=== PATIENT | female | born 1990 | race American Indian/Alaskan Native ===

== ENCOUNTER → 2020-04-05 13:49 | Outpatient (BNVA) | payer MEDICAID, SELFPAY | PROVIDERS: PCP Nurse Practitioner Family; Referring Provider Nurse Practitioner Family; Visit Provider Internal Medicine | DX: E04.1 Nontoxic single thyroid nodule (principal); E55.9 Vitamin D deficiency, unspecified; Z79.899 Other long term (current) drug therapy | CPT/HCPCS: 99203 ==

== ENCOUNTER 2020-06-15 13:51 | Outpatient (REF) | payer MEDICAID, SELFPAY | END 2020-06-15 13:52 | disposition home or self-care (01) | LOC: HO.LAB 13:51 | PROVIDERS: PCP Nurse Practitioner Family; Visit Provider Internal Medicine | DX: Z20.828 Contact with and (suspected) exposure to other viral communicable diseases (principal) | CPT/HCPCS: C9803; U0003 ==

== ENCOUNTER → 2020-07-02 12:33 | Outpatient (BNVA) | payer MEDICAID, SELFPAY | PROVIDERS: PCP Nurse Practitioner Family; Referring Provider Nurse Practitioner Family; Visit Provider Internal Medicine | DX: Z76.89 Persons encountering health services in other specified circumstances (principal) ==

== ENCOUNTER → 2020-08-15 11:29 | Outpatient (BNVA) | payer MEDICAID, SELFPAY | PROVIDERS: PCP Nurse Practitioner Family; Visit Provider Internal Medicine ==

== ENCOUNTER 2020-09-10 13:27 | Outpatient (REF) | payer MEDICAID, SELFPAY ==
[2020-09-10 16:58] LABS: CT PCR NOT DETECTED (Not Detect.); NG PCR NOT DETECTED (Not Detect.)
== END 2020-09-10 13:28 | disposition home or self-care (01) ==
LOC: HO.LAB 13:27
PROVIDERS: Visit Provider Advanced Practice Midwife
DX: Z01.411 Encounter for gynecological examination (general) (routine) with abnormal findings (principal); N92.1 Excessive and frequent menstruation with irregular cycle; Z20.2 Contact with and (suspected) exposure to infections with a predominantly sexual mode of transmission; Z97.5 Presence of (intrauterine) contraceptive device
CPT/HCPCS: 87491; 87591; 88142

== ENCOUNTER → 2020-10-22 10:11 | Outpatient (BNVA) | payer MEDICAID, SELFPAY | PROVIDERS: Visit Provider Internal Medicine ==

== ENCOUNTER 2020-12-03 14:41 | Outpatient (REF) | payer MEDICAID, SELFPAY ==
[2020-12-03 15:32] LABS: Calcium 9.4 mg/dL (8.4-10.2)
[2020-12-03 15:59] LABS: Free T4 (Free Thyroxine) 1.14 ng/dL (0.71-1.85); Vitamin D 25-OH Total 40.6 ng/mL (>30)
[2020-12-05 06:21] LABS: Thyroglobulin 0.2 ng/mL; Thyroglobulin Antibodies 3 IU/mL (< or = 1)
[2020-12-05 10:26] LABS: Calcium (PTHI) 9.2 mg/dL (8.6-10.2); PTHI 30 pg/mL (14-64)
== END 2020-12-03 14:42 | disposition home or self-care (01) ==
LOC: HO.LAB 14:41
PROVIDERS: Visit Provider Internal Medicine
DX: E55.9 Vitamin D deficiency, unspecified (principal); C73 Malignant neoplasm of thyroid gland
CPT/HCPCS: 36415; 82306; 82310; 83970; 84432; 84439; 84443; 86800

== ENCOUNTER → 2021-02-18 12:21 | Outpatient (BNVA) | payer MEDICAID, SELFPAY | PROVIDERS: Visit Provider Internal Medicine ==

== ENCOUNTER 2021-02-19 15:12 | Outpatient (REF) | payer MEDICAID, SELFPAY ==
[2021-02-19 16:22] LABS: Thyroid Stimulating Hormone 0.61 uIU/mL (0.32-4.0)
[2021-02-21 02:17] LABS: Thyroglobulin Antibodies 2 IU/mL (< or = 1)
[2021-02-22 07:12] LABS: Thyroglobulin 0.2 ng/mL
== END 2021-02-19 15:13 | disposition home or self-care (01) ==
LOC: HO.LAB 15:12
PROVIDERS: Visit Provider Internal Medicine
DX: Z85.850 Personal history of malignant neoplasm of thyroid (principal)
CPT/HCPCS: 36415; 84432; 84439; 84443; 86800

== ENCOUNTER → 2021-04-29 10:19 | Outpatient (BNVA) | payer MEDICAID, SELFPAY | PROVIDERS: Visit Provider Internal Medicine | DX: C73 Malignant neoplasm of thyroid gland (principal) | CPT/HCPCS: 96372 ==

== ENCOUNTER → 2021-04-30 08:56 | Outpatient (BNVA) | payer MEDICAID, SELFPAY | PROVIDERS: Visit Provider Nurse Practitioner Gerontology | DX: C73 Malignant neoplasm of thyroid gland (principal) | CPT/HCPCS: 96372 ==

== ENCOUNTER 2021-04-30 09:29 | Outpatient (REF) | payer MEDICAID, SELFPAY ==
[2021-04-30 10:48] LABS: HCG Quantitative < 2 mIU/mL
== END 2021-04-30 09:30 | disposition home or self-care (01) ==
LOC: HO.10HDL 09:29
PROVIDERS: Visit Provider Internal Medicine
DX: Z85.850 Personal history of malignant neoplasm of thyroid (principal)
CPT/HCPCS: 36415; 84702

== ENCOUNTER 2021-05-01 09:21 | Outpatient (REF) | payer MEDICAID, SELFPAY ==
[2021-05-02 12:26] LABS: Thyroglobulin Antibodies <1 IU/mL (< or = 1)
== END 2021-05-01 09:22 | disposition home or self-care (01) ==
LOC: HO.10HDL 09:21
PROVIDERS: Visit Provider Internal Medicine
DX: Z85.850 Personal history of malignant neoplasm of thyroid (principal)
CPT/HCPCS: 36415; 84443; 86800

== ENCOUNTER 2021-08-22 15:26 | Outpatient (REF) | payer MEDICAID, SELFPAY ==
[2021-08-22 17:18] LABS: Free T4 (Free Thyroxine) 1.01 ng/dL (0.71-1.85); Thyroid Stimulating Hormone 0.11 uIU/mL (0.32-4.0)
[2021-08-23 20:17] LABS: Thyroglobulin <0.1 ng/mL; Thyroglobulin Antibodies <1 IU/mL (< or = 1)
== END 2021-08-22 15:27 | disposition home or self-care (01) ==
LOC: HO.LAB 15:26
PROVIDERS: Absent Provider Nurse Practitioner Family; PCP Nurse Practitioner Family; Visit Provider Internal Medicine
DX: Z85.850 Personal history of malignant neoplasm of thyroid (principal)
CPT/HCPCS: 36415; 84432; 84439; 84443; 86800

== ENCOUNTER → 2021-08-26 14:02 | Outpatient (BNVA) | payer MEDICAID, SELFPAY | PROVIDERS: Visit Provider Internal Medicine | DX: C73 Malignant neoplasm of thyroid gland (principal); E55.9 Vitamin D deficiency, unspecified; E03.9 Hypothyroidism, unspecified; Z79.899 Other long term (current) drug therapy | CPT/HCPCS: 99212 ==

== ENCOUNTER 2021-08-29 16:01 | Outpatient (REF) | payer MEDICAID, SELFPAY ==
--- NOTE | ~2021-08-29 | XR_ITS ---
EXAMINATION: XR CERVICAL SPINE CLINICAL INFORMATION: Cervalgia COMPARISON: None TECHNIQUE: 6 views of the cervical spine, inclusive of flexion and extension views, were obtained. FINDINGS: The vertebral alignment is normal. No intrinsic bony abnormality. The disc heights are well maintained. The endplates and posterior elements are normal. No fracture or subluxation. There is an osteophyte protruding into the left foramen at the level of C3. The surrounding prevertebral soft tissues are unremarkable. XR/XR cervical spine min 6V IMPRESSION: There is an osteophyte protruding encroaching into the left foramen at the level of C3, if patient has neurological symptoms may consider correlation with MRI to assess for possible nerve impingement. All cervical vertebrae maintained proper height and alignment. Intervertebral disc spaces are preserved.
== END 2021-08-29 16:02 | disposition home or self-care (01) ==
LOC: HO.XRAY 16:01
PROVIDERS: PCP Nurse Practitioner Family; Visit Provider Nurse Practitioner Family
DX: M54.2 Cervicalgia (principal)
CPT/HCPCS: 72052

== ENCOUNTER 2021-09-12 14:15 | Outpatient (REF) | payer MEDICAID, SELFPAY ==
[2021-09-13 09:44] LABS: BV Int Neg Control Negative (Negative); BV Int Pos Control Positive (Positive)
== END 2021-09-12 14:16 | disposition home or self-care (01) ==
LOC: HO.LAB 14:15
PROVIDERS: Visit Provider Advanced Practice Midwife
DX: N89.8 Other specified noninflammatory disorders of vagina (principal)
CPT/HCPCS: 87480; 87510; 87660

== ENCOUNTER 2021-09-12 18:06 | Outpatient (REF) | payer MEDICAID, SELFPAY ==
--- NOTE | ~2021-09-12 | MR_ITS ---
EXAMINATION: MR CERVICAL SPINE WITHOUT CONTRAST CLINICAL INFORMATION: Neck pain and bilateral arm radiculopathy. COMPARISON: None TECHNIQUE: MRI of the cervical spine was obtained using routine sequences without contrast. FINDINGS: VERTEBRAL BODIES AND PARASPINAL SOFT TISSUES: The marrow signal is homogeneous. There are no compression fractures or subluxations. Mild multilevel reduced intradiscal signal and disc space narrowing evident. The paraspinal soft tissues appear normal. The vertebral artery flow-voids are maintained. The imaged lung apices are grossly clear. There is a mild rightward curvature of the cervical spine as well. CERVICOMEDULLARY JUNCTION AND VISUALIZED POSTERIOR FOSSA: The craniovertebral junction and imaged portions of the brain parenchyma appear normal. No cord signal abnormality or syrinx is seen. SPINAL LEVELS: C2-C3: Tiny central disc protrusion. No central canal stenosis or foraminal narrowing. C3-C4: Mild loss of disc height and mild disc bulge with very mild uncovertebral joint spurring. No central canal stenosis or foraminal encroachment. C4-C5: Small central disc protrusion. No central canal stenosis or foraminal narrowing. C5-C6: Shallow right paracentral disc protrusion with mild ventral thecal sac deformity. No central canal stenosis or foraminal narrowing. C6-C7: Minimal annular bulge. Patent central canal and foramina. C7-T1: No disc pathology. MR/MR cervical spine wo con IMPRESSION: Mild cervical spondylosis with small disc protrusions at the C2-C3, C4-C5, and C5-C6 levels. Mild disc bulge and endplate spurring without foraminal encroachment at the C3-C4 level. No cord signal abnormality.
== END 2021-09-12 18:07 | disposition home or self-care (01) ==
LOC: HO.MRI 18:06
PROVIDERS: PCP Nurse Practitioner Family; Visit Provider Nurse Practitioner Family
DX: M25.78 Osteophyte, vertebrae (principal); M54.2 Cervicalgia; N89.8 Other specified noninflammatory disorders of vagina
CPT/HCPCS: 72141

== ENCOUNTER 2021-11-11 13:41 | Outpatient (REF) | payer MEDICAID, SELFPAY ==
[2021-11-12 06:41] LABS: CT PCR NOT DETECTED (Not Detect.); NG PCR NOT DETECTED (Not Detect.)
[2021-11-12 13:18] LABS: BV Int Neg Control Negative (Negative); BV Int Pos Control Positive (Positive)
== END 2021-11-11 13:42 | disposition home or self-care (01) ==
LOC: HO.LAB 13:41
PROVIDERS: Visit Provider Advanced Practice Midwife
DX: Z30.431 Encounter for routine checking of intrauterine contraceptive device (principal); N89.8 Other specified noninflammatory disorders of vagina; N93.0 Postcoital and contact bleeding; T83.32XA Displacement of intrauterine contraceptive device, initial encounter; Z20.2 Contact with and (suspected) exposure to infections with a predominantly sexual mode of transmission
CPT/HCPCS: 81003; 81025; 87480; 87491; 87510; 87591; 87660

== ENCOUNTER 2021-11-26 10:25 | Outpatient (REF) | payer MEDICAID, SELFPAY ==
--- NOTE | ~2021-11-26 | US_ITS ---
EXAMINATION: US PELVIS CLINICAL INFORMATION: Post coital bleeding. LMP 11/23/2021. History of C-sections x2. COMPARISON: Pelvic ultrasound dated from 11/24/2018. TECHNIQUE: Ultrasound of the pelvis is performed using both transabdominal and transvaginal transducers along with Doppler. Transvaginal imaging is performed due to inadequate visualization transabdominally. FINDINGS: The uterus is anteverted and measures 10.6 x 4.9 x 6.4 cm. No fibroids are identified. The endometrium measures 0.6 cm in thickness with an IUD in satisfactory positioning. The ovaries are normal in morphology with preserved flow at the moment of this examination. The right ovary measures 3.6 x 2.2 x 2.2 cm (9 mL), and the left ovary measures 2.8 x 2.0 x 2.9 cm (8 mL). There is no free fluid. US/US pelvic and transvaginal IMPRESSION: IUD in satisfactory positioning. No significant abnormalities.
[2021-11-26 14:14] LABS: Free T4 (Free Thyroxine) 1.16 ng/dL (0.71-1.85); Thyroid Stimulating Hormone 0.29 uIU/mL (0.32-4.0)
[2021-11-27 09:01] LABS: Thyroglobulin <0.1 ng/mL; Thyroglobulin Antibodies <1 IU/mL (< or = 1)
== END 2021-11-26 10:26 | disposition home or self-care (01) ==
LOC: HO.HMGCX 10:25
PROVIDERS: Absent Provider Internal Medicine; PCP Nurse Practitioner Family; Visit Provider Advanced Practice Midwife
DX: N93.0 Postcoital and contact bleeding (principal); T83.32XA Displacement of intrauterine contraceptive device, initial encounter; E55.9 Vitamin D deficiency, unspecified; Z85.850 Personal history of malignant neoplasm of thyroid; Z30.431 Encounter for routine checking of intrauterine contraceptive device
CPT/HCPCS: 36415; 76830; 76856; 82306; 84432; 84439; 84443; 86800

== ENCOUNTER → 2021-12-02 13:05 | Outpatient (BNVA) | payer MEDICAID, SELFPAY | PROVIDERS: PCP Nurse Practitioner Family; Visit Provider Internal Medicine | DX: Z13.89 Encounter for screening for other disorder (principal) ==

== ENCOUNTER 2021-12-04 15:13 | Outpatient (REF) | payer MEDICAID, SELFPAY ==
--- NOTE | ~2021-12-04 | US_ITS ---
EXAMINATION: US SOFT TISSUE NECK CLINICAL INFORMATION: Personal history of malignant neoplasm of thyroid. COMPARISON: Ultrasound soft tissue head/neck thyroid dated 01/23/2020 and 02/21/2019. TECHNIQUE: Ultrasound of the neck soft tissues is performed with high- frequency donovan-scale imaging and color Doppler. FINDINGS: THYROID BED: Prior thyroidectomy. No residual thyroid tissue demonstrated in the thyroid bed. No cystic or solid nodules demonstrated in the thyroid bed. RIGHT NECK SOFT TISSUES: Scattered architecturally normal nodes are present. The nodes show normal fatty hilus, normal cortical thickness, and no cystic change or calcification. No abnormal color flow. The largest nodes are as follows: Level Ib: 0.56 x 0.31 x 0.51 cm. Normal jorge luis architecture. Level Ib: 0.75 x 0.22 x 0.88 cm. Normal jorge luis architecture. Level Ib: 0.93 x 0.64 x 1.1 cm. Normal jorge luis architecture. LEFT NECK SOFT TISSUES: Scattered architecturally normal nodes are present. The nodes show normal fatty hilus, normal cortical thickness, and no cystic change or calcification. No abnormal color flow. The largest nodes are as follows: Level 2: 1.3 x 0.44 x 0.83 cm. Normal jorge luis architecture. Level 2: 0.92 x 0.27 x 0.74 cm. Normal jorge luis architecture. Level 2: 0.80 x 0.31 x 0.52 cm. Normal jorge luis architecture. Level 2: 0.60 x 0.38 x 0.76 cm. Normal jorge luis architecture. Level 2: 1.9 x 0.35 x 1.1 cm. Normal jorge luis architecture. US/US soft tiss head and/or neck IMPRESSION: 1. Benign bilateral neck lymph nodes most of them measuring less than 1 cm exophytic with the largest left level 2 lymph node measuring 1.9 cm. It has benign ultrasound characteristics. 2. If clinically indicated, further evaluation of the neck soft tissues and nodes may be performed with CT soft tissue neck with intravenous contrast.
== END 2021-12-04 15:14 | disposition home or self-care (01) ==
LOC: HO.HMGCX 15:13
PROVIDERS: PCP Nurse Practitioner Family; Visit Provider Internal Medicine
DX: Z85.850 Personal history of malignant neoplasm of thyroid (principal)
CPT/HCPCS: 76536

== ENCOUNTER 2021-12-19 08:39 | Outpatient (REF) | payer MEDICAID, SELFPAY ==
[2021-12-19 09:41] LABS: Hematocrit 34.3 % (37.0-47.0); Hemoglobin 11.8 g/dl (12.0-16.0); Mean Corpuscular HGB Conc 34.4 g/dl (31.0-35.0); Mean Corpuscular Volume 78.5 fL (80.0-98.0); Mean Platelet Volume 11.1 fL (9.4-12.3); Platelet Count 224 X10*3/uL (160-400); Red Blood Count 4.37 X10*6/uL (4.20-5.50); Red Cell Distribution Width 15.3 % (11.0-16.0); White Blood Count 7.1 X10*3/uL (4.8-10.8)
== END 2021-12-19 08:40 | disposition home or self-care (01) ==
LOC: HO.LAB 08:39
PROVIDERS: PCP Nurse Practitioner Family; Visit Provider Advanced Practice Midwife
DX: N92.0 Excessive and frequent menstruation with regular cycle (principal); Z71.2 Person consulting for explanation of examination or test findings
CPT/HCPCS: 36415; 85027

== ENCOUNTER 2022-04-21 09:47 | Outpatient (REF) | payer MEDICAID, SELFPAY ==
[2022-04-21 14:11] LABS: CT PCR NOT DETECTED (Not Detect.); NG PCR NOT DETECTED (Not Detect.)
[2022-04-22 12:23] LABS: BV Int Neg Control Negative (Negative); BV Int Pos Control Positive (Positive)
== END 2022-04-21 09:48 | disposition home or self-care (01) ==
LOC: HO.LNP 09:47
PROVIDERS: PCP Nurse Practitioner Family; Visit Provider Advanced Practice Midwife
DX: Z30.432 Encounter for removal of intrauterine contraceptive device (principal); N94.10 Unspecified dyspareunia
CPT/HCPCS: 58301; 87480; 87491; 87510; 87591; 87660

== ENCOUNTER → 2022-08-11 13:10 | Outpatient (BNVA) | payer MEDICAID, SELFPAY | PROVIDERS: PCP Registered Nurse; Visit Provider Internal Medicine | DX: E03.9 Hypothyroidism, unspecified (principal); E55.9 Vitamin D deficiency, unspecified; L70.9 Acne, unspecified; Z85.850 Personal history of malignant neoplasm of thyroid | CPT/HCPCS: 99212 ==

== ENCOUNTER 2022-08-12 07:28 | Outpatient (REF) | payer MEDICAID, SELFPAY ==
[2022-08-12 08:18] LABS: Alanine Aminotransferase 11 U/L (0-31); Albumin Level 4.1 g/dL (3.5-5.0); Alkaline Phosphatase 57 U/L (39-117); Anion Gap 12 (12-20); Aspartate Amino Transferase 13 U/L (5-31); Bilirubin Total 0.7 mg/dL (0.0-1.0); Blood Urea Nitrogen 11 mg/dL (9-16); Calcium 8.9 mg/dL (8.4-10.2); Carbon Dioxide 23 mmol/L (22-29); Chloride 109 mmol/L (96-108); Estimated Glomerular Filt Rate > 60; Glucose Random 110 mg/dL (60-115); Potassium 4.3 mmol/L (3.3-5.1); Sodium 140 mmol/L (135-145); Total Protein 6.8 g/dL (6.5-8.0)
[2022-08-12 08:35] LABS: Free T4 (Free Thyroxine) 1.19 ng/dL (0.71-1.85); Thyroid Stimulating Hormone 0.06 uIU/mL (0.32-4.0)
[2022-08-14 08:38] LABS: DHEA Sulfate 175 mcg/dL (14-349); Follicle Stimulating Hormone 7.6 mIU/mL; Lutenizing Hormone 3.9 mIU/mL; Sex Hormone Binding Globulin 35 nmol/L (17-124)
[2022-08-16 05:44] LABS: Thyroglobulin Antibody <1 IU/mL (<=1); Thyroglobulin Level <0.1 ng/mL
[2022-08-16 15:54] LABS: Adrenocorticotropic Hormone 21 pg/mL (6-50)
[2022-08-16 23:19] LABS: Estradiol Ultra Sensitive 28 pg/mL
[2022-08-18 14:34] LABS: Androstenedione 151 ng/dL
[2022-08-27 16:53] LABS: Testosterone, Total 32 ng/dL (2-45)
== END 2022-08-12 07:29 | disposition home or self-care (01) ==
LOC: HO.LAB 07:28
PROVIDERS: Visit Provider Internal Medicine
DX: L70.9 Acne, unspecified (principal); Z85.850 Personal history of malignant neoplasm of thyroid
CPT/HCPCS: 36415; 80053; 82024; 82157; 82533; 82627; 82670; 83001; 83002; 83498; 84270; 84402; 84403; 84432; 84439; 84443; 86800

== ENCOUNTER 2022-10-16 07:53 | Outpatient (REF) | payer MEDICAID, SELFPAY ==
[2022-10-16 11:40] LABS: Free T4 (Free Thyroxine) < 0.42 ng/dL (0.71-1.85); Thyroid Stimulating Hormone 33.95 uIU/mL (0.32-4.0)
[2022-10-22 05:13] LABS: Thyroglobulin Antibody <1 IU/mL (<=1); Thyroglobulin Level 0.9 ng/mL
== END 2022-10-16 07:54 | disposition home or self-care (01) ==
LOC: HO.10HDL 07:53
PROVIDERS: Visit Provider Internal Medicine
DX: Z85.850 Personal history of malignant neoplasm of thyroid (principal)
CPT/HCPCS: 36415; 84432; 84439; 84443; 86800

== ENCOUNTER 2022-10-21 10:17 | Outpatient (REF) | payer MEDICAID, SELFPAY ==
[2022-10-21 12:50] LABS: Free T4 (Free Thyroxine) < 0.42 ng/dL (0.71-1.85); HCG Quantitative < 2 mIU/mL; Thyroid Stimulating Hormone 53.76 uIU/mL (0.32-4.0)
== END 2022-10-21 10:18 | disposition home or self-care (01) ==
LOC: HO.10HDL 10:17
PROVIDERS: Visit Provider Internal Medicine Endocrinology, Diabetes & Metabolism
DX: C73 Malignant neoplasm of thyroid gland (principal)
CPT/HCPCS: 36415; 84439; 84443; 84702

== ENCOUNTER 2022-10-31 14:16 | Outpatient (REF) | payer MEDICAID, SELFPAY ==
--- NOTE | ~2022-10-31 | US_ITS ---
EXAMINATION: US SOFT TISSUE NECK CLINICAL INFORMATION: Malignant neoplasm of thyroid gland COMPARISON: Previous exams most recent November 2021 TECHNIQUE: Ultrasound of the neck soft tissues is performed with high- frequency donovan-scale imaging and color Doppler. FINDINGS: THYROID BED: Prior thyroidectomy. No residual thyroid tissue demonstrated in the thyroid bed. No cystic or solid nodules demonstrated in the thyroid bed. There is a new midline level 1A lymph node that measures 6 x 3 x 7 mm in sagittal AP and transverse dimension. This is normal in size and demonstrate normal ultrasound morphology and flow. There are 7 lymph nodes identified in the right neck. There is a level 1A lymph node that is normal appearing and stable. There is a newly appreciated 1B lymph node that measures 7 x 5 x 6 mm and is normal in size. This demonstrates abnormal morphology with absent fatty hilum and round shape. There is a level 2 lymph node that has normal ultrasound morphology and is normal in size but slightly increased in size compared to prior prior exam. There is a new level 3 lymph node that is upper normal in size measuring 1.6 x 0.3 x 0.9 cm and has normal ultrasound morphology. There is a newly appreciated right level 3 lymph node that is upper normal in size measuring 1.4 x 0.3 x 0.8 cm. This has abnormal morphology with absent fatty hilum. There is a newly appreciated right level 4 lymph node that is upper normal in size measuring 1.1 x 0.2 x 0.9 cm and has normal ultrasound morphology. There is a newly appreciated slightly enlarged right level 5A lymph node that measures 1.4 x 0.3 x 1.2 cm and has normal ultrasound morphology. There are 2 newly appreciated left cervical lymph nodes. There is a level 1 lymph node that is upper normal in size measuring 0.8 x 0.7 x 1.5 cm and has normal ultrasound morphology. There is an upper normal level 3 lymph node that measures 1.6 x 0.2 x 0.7 cm and has abnormal ultrasound morphology with absent fatty hilum. There are 2 adjacent level 5A normal-appearing lymph nodes that was measured as one lymph node on prior exam. These are normal in size and have normal ultrasound morphology. US/US soft tiss head and/or neck IMPRESSION: Post thyroidectomy. No residual thyroid tissue or nodule. Bilateral newly appreciated lymph nodes, some slightly enlarged with abnormal pathology/absent fatty hilum.
== END 2022-10-31 14:17 | disposition home or self-care (01) ==
LOC: HO.HMGCX 14:16
PROVIDERS: PCP Registered Nurse; Visit Provider Internal Medicine
DX: C73 Malignant neoplasm of thyroid gland (principal)
CPT/HCPCS: 76536

== ENCOUNTER 2022-11-06 14:13 | Outpatient (REF) | payer MEDICAID, SELFPAY ==
[2022-11-07 09:32] LABS: CT PCR NOT DETECTED (Not Detect.); NG PCR NOT DETECTED (Not Detect.)
[2022-11-11 09:37] LABS: HPV mRNA E6/E7 rflx Not Detected (Not Detected)
== END 2022-11-06 14:14 | disposition home or self-care (01) ==
LOC: HO.LNP 14:13
PROVIDERS: PCP Registered Nurse; Visit Provider Advanced Practice Midwife
DX: Z01.419 Encounter for gynecological examination (general) (routine) without abnormal findings (principal); Z11.51 Encounter for screening for human papillomavirus (HPV); Z20.2 Contact with and (suspected) exposure to infections with a predominantly sexual mode of transmission
CPT/HCPCS: 0353U; 87624; 88142

== ENCOUNTER 2022-11-12 14:26 | Outpatient (REF) | payer MEDICAID, SELFPAY ==
[2022-11-12 17:14] LABS: Free T4 (Free Thyroxine) 1.41 ng/dL (0.71-1.85); Thyroid Stimulating Hormone 0.94 uIU/mL (0.32-4.0)
[2022-11-18 07:28] LABS: Thyroglobulin Antibody <1 IU/mL (<=1); Thyroglobulin Level 0.1 ng/mL
== END 2022-11-12 14:27 | disposition home or self-care (01) ==
LOC: HO.LAB 14:26
PROVIDERS: PCP Registered Nurse; Visit Provider Internal Medicine
DX: E55.9 Vitamin D deficiency, unspecified (principal); E03.9 Hypothyroidism, unspecified; L70.9 Acne, unspecified; Z85.850 Personal history of malignant neoplasm of thyroid
CPT/HCPCS: 36415; 84432; 84439; 84443; 86800; 99212

== ENCOUNTER 2022-12-04 10:08 | Outpatient (REF) | payer MEDICAID, SELFPAY ==
--- NOTE | 2022-12-04 10:38 | PM.OP ---
Brief Operative Note Date of Service: 12/04/22 Pre-op diagnosis: Multinodular Thyroid Procedure: EXAMINATION: US THYROID CLINICAL INFORMATION: Multinodular Thyroid COMPARISON: Prior TECHNIQUE: Linear transducer donovan-scale and color Doppler examination with attention to the region of the thyroid. FINDINGS: SIZE: Measurements of the thyroid lobes and nodules are given in sagittal, anteroposterior and transverse dimensions respectively. No residual tissue within the thyroid bed. Lymph Nodes: The right cervical chain reveals a 2.85 cm normal appearing lymph node in right level 1B. This has a good fatty hilum and reniform shape. The right cervical chain reveals a 0.7 cm abnormal appearing lymph node in the right level 1B. This has a rounded shape with no hilum identified. IMPRESSION: Suspicious appearing right level 1B 0.7 cm lymph node. No FNA biopsy of this lymph node was performed given its size. Patient is to receive high dose I131 treatment. Surgeon: Shalini Hyde, DO Was an Cupola Liner Helper used for this Procedure?: No Estimated blood loss (mL): 0
== END 2022-12-04 10:09 | disposition home or self-care (01) ==
LOC: HO.US 10:08
PROVIDERS: PCP Registered Nurse; Visit Provider Internal Medicine
DX: Z85.850 Personal history of malignant neoplasm of thyroid (principal); E04.2 Nontoxic multinodular goiter
CPT/HCPCS: 76536

== ENCOUNTER 2022-12-16 08:44 | Outpatient (REF) | payer MEDICAID, SELFPAY ==
[2022-12-16 10:10] LABS: Free T4 (Free Thyroxine) 1.57 ng/dL (0.71-1.85); Thyroid Stimulating Hormone 0.04 uIU/mL (0.32-4.0)
== END 2022-12-16 08:45 | disposition home or self-care (01) ==
LOC: HO.LAB 08:44
PROVIDERS: PCP Registered Nurse; Visit Provider Internal Medicine
DX: E03.9 Hypothyroidism, unspecified (principal)
CPT/HCPCS: 36415; 84439; 84443

== ENCOUNTER 2023-01-15 12:39 | Outpatient (REF) | payer MEDICAID, SELFPAY ==
[2023-01-18 00:44] LABS: TS Negative Control Passed; TS Panel A 0; TS Panel B 0; TS Positive Control Passed; TSpotTB Negative (Negative)
== END 2023-01-15 12:40 | disposition home or self-care (01) ==
LOC: HO.HHCL 12:39
PROVIDERS: Visit Provider Registered Nurse
DX: Z11.1 Encounter for screening for respiratory tuberculosis (principal)
CPT/HCPCS: 36415; 86481

== ENCOUNTER 2023-01-22 14:28 | Outpatient (AMB) | payer MEDICAID, SELFPAY ==
--- NOTE | 2023-01-22 14:29 | A.OFFVIS_ITS ---
Intake Intake Visit Reasons: FNA Results Allergies No Known Allergies [No Known Allergies*] Allergy (Verified 01/22/23 14:33) Medication List - Last Reconciled 01/22/23 by Shalini Hyde, cetirizine (Zyrtec) 10 mg PO DAILY PRN cholecalciferol (vitamin D3) 2,000 units PO DAILY Tirosint (levothyroxine) 112 mcg PO DAILY 30 days NS HPI HPI Comments History of Present Illness Details 32 YO F with no significant PMHx who is seen in F/U for thyroid cancer. Was initially diagnosed with multinodular thyroid in 2019 with thyroid US revealing a large RMP nodule measuring 4.1 cm. This was biopsied by IR 03/07/2019 with benign cytology ([place] Category II). She was referred to Dr. Clint Cooper and underwent a R hemithyroidectomy due to compressive symptoms. 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 There was no angioinvasion, no lymphatic invasion, no perneural invasion, no extrathyroidal extension, and negative margins. No lymph nodes were excised. This was staged as pT2pNx. She underwent a completion thyroidectomy in November 06, 2020 with official surgical path benign. She was started on Tirosint 112 mcg PO daily postoperative, and reports good compliance with this. She underwent thyrogen stimulated remnant ablation on 05/01/2021 with 30.2 mCi of I131. TSH at that time was 76.3, but unfortunately no TG or TG antibodies were drawn at that time. WBS completed 05/10/2021 revealed intense foci of uptake within the neck, but otherwise only physiologic uptake. She had labs repeated 08/22/2021 with TSH 0.11, TG <0.1 and negative TG antibodies. Labs 11/26/2021 with TSH 0.29, TG <0.1 and TGAB <1. She had an US of the neck which revealed no abnormal appearing lymph nodes at that time. She then underwent a repeat WBS 10/24/2022 via thyroid hormone withdrawal. 10/16/2022 TSH 33.95, TG 0.9 and TGAB <1. WBS revealed increased radiotracer uptake in the upper neck in the region of the right thyroidectomy bed and along the thyroglossal duct. Uptake was otherwise physiologic. She underwent an US head and neck which did reveal multiple abnormal and enlarged lymph nodes bilaterally. I repeated her US myself and noted an abnormal appearing 0.7 cm lymph node in the right level 1B. No FNA was completed based on size. Patient presents today to discuss high dose I131 treatment. Whole Body Scan: 10/24/2022 Increased tracer radioiodine uptake in the upper neck in the region of the right thyroidectomy bed and along the thyroglossal duct. 48 hours uptake in the neck was 0.2%. Impression: Residual radioiodine activity within the neck suggestive of thyroid tissue or local disease. No evidence for iodine avid distant metastatic disease. US Head and Neck: 10/31/2022 THYROID BED: Prior thyroidectomy. No residual thyroid tissue demonstrated in the thyroid bed. No cystic or solid nodules demonstrated in the thyroid bed. There is a new midline level 1A lymph node that measures 6 x 3 x 7 mm in sagittal AP and transverse dimension. This is normal in size and demonstrate normal ultrasound morphology and flow. There are 7 lymph nodes identified in the right neck. There is a level 1A lymph node that is normal appearing and stable. There is a newly appreciated 1B lymph node that measures 7 x 5 x 6 mm and is normal in size. This demonstrates abnormal morphology with absent fatty hilum and round shape. There is a level 2 lymph node that has normal ultrasound morphology and is normal in size but slightly increased in size compared to prior prior exam. There is a new level 3 lymph node that is upper normal in size measuring 1.6 x 0.3 x 0.9 cm and has normal ultrasound morphology. There is a newly appreciated right level 3 lymph node that is upper normal in size measuring 1.4 x 0.3 x 0.8 cm. This has abnormal morphology with absent fatty hilum. There is a newly appreciated right level 4 lymph node that is upper normal in size measuring 1.1 x 0.2 x 0.9 cm and has normal ultrasound morphology. There is a newly appreciated slightly enlarged right level 5A lymph node that measures 1.4 x 0.3 x 1.2 cm and has normal ultrasound morphology. There are 2 newly appreciated left cervical lymph nodes. There is a level 1 lymph node that is upper normal in size measuring 0.8 x 0.7 x 1.5 cm and has normal ultrasound morphology. There is an upper normal level 3 lymph node that measures 1.6 x 0.2 x 0.7 cm and has abnormal ultrasound morphology with absent fatty hilum. There are 2 adjacent level 5A normal-appearing lymph nodes that was measured as one lymph node on prior exam. These are normal in size and have normal ultrasound morphology. Labs: Laboratory Tests 11/12/22 12/16/22 15:09 08:56 TSH 0.04 L Thyroglobulin 0.1 H Thyroglobulin Anti body <1 PFSH Medical History Ac[place] History of thyroid cancer Hypothyroidism Local recurrence of cancer of thyroid gland Thyroid cancer Thyroid nodule Vitamin D deficiency Surgical History Hx of section Hx of knee surgery Hx of total thyroidectomy Family History Father Vitamin D deficiency Mother Depression Hypertension Water retention Thyroid nodule Paternal Grandfather Colon cancer Social History Alcohol intake: never Patient Tobacco Use Status: Never used Tobacco Sexual orientation: Straight/Heterosexual Gender identity: Female Female Reproductive History Menstrual Age of Menarche: 13 Assessment & Plan Assessment & Plan (1) History of thyroid cancer: Code(s): Z85.850 - Personal history of malignant neoplasm of thyroid Plan: Patient with 3.2 cm focus of minimally invasive follicular carinoma of the thyroid, S/P a R hemithyroidectomy, with a completion thyroidectomy in October 2020. She underwent I131 remnant ablation 05/01/2021 with 30.2 mCi I131. Post- treatment WBS revealed intense uptake within the neck. Unfortunately no stimulated TG levels were drawn. She initially opted against repeat WBS. We reviewed that I do recommend WBS at this time to assess for resolution of the area of increased uptake within the neck. She is desiring . I did review with her that must be delayed for 1 year after WBS as the I131 can adverse effect the development of the fetus. She verbalizes understanding and states she will not attempt to conceive in this year. Her WBS was completed 10/24/2022 and does reveal increased uptake in the right thyroidectomy bed. US of the head and neck did reveal abnormal appearing lymph nodes there. Stimulated TG does remain low at 0.9. I repeated her US of the neck myself and did note a 0.7 cm abnormal appearing right level 1B lymph node. No FNA was completed based on the size. Plan for now is to proceed with high dose I131 adjuvant treatment with 150 mCi. We did review that she must avoid for 1 year following treatment. She verbalizes understanding. TSH is at goal of 0.1-0.5. She will complete her high dose treatment, thyrogen stimulated and F/U to review the results of her WBS. All of her questions were answered today. She is in agreement with this plan of care. I spent 20 minutes in reviewing the record, seeing the patient and documenting in the medical record, including 5 minutes on the phone with the Patient. (2) Hypothyroidism: Code(s): E03.9 - Hypothyroidism, unspecified Plan: She remains on levothyroxine 112 mcg PO daily. TSH goal of 0.1-0.5 currently. Orders: Orders NM thyroid ca whole body Today C73 - Malignant neoplasm of thyroid gland NM hyperthyroid therapy Today C73 - Malignant neoplasm of thyroid gland Telehealth Telehealth Location of provider rendering services: practice address Location of patient: address on file Patient Identification confirmed using: Name, : Yes Telehealth method: voice only Patient verbally consented to treatment: Yes Patient verbally consented to billing insurance company: Yes Patient informed of any privacy concerns related to visit: Yes Coding Level of Care Code Tele Est Pt Level 3 (37049) Diagnoses History of thyroid cancer Z85.850 Hypothyroidism E03.9
== END 2023-01-22 14:50 | disposition home or self-care (01) ==
LOC: HO.ENCR 14:28
PROVIDERS: PCP Registered Nurse; Visit Provider Internal Medicine
DX: Z85.850 Personal history of malignant neoplasm of thyroid (principal); E03.9 Hypothyroidism, unspecified
CPT/HCPCS: 99213

== ENCOUNTER → 2023-01-22 14:28 | Outpatient (BNVA) | payer MEDICAID, SELFPAY | PROVIDERS: PCP Registered Nurse; Visit Provider Internal Medicine ==

== ENCOUNTER 2023-02-05 08:55 | Outpatient (AMB) | payer MEDICAID, SELFPAY ==
--- NOTE | 2023-02-05 08:57 | MHC.OFFVIS ---
Intake Vital Signs 02/05/23 08:58 Height 5 ft Weight 143 lb 6 oz BMI 28.0 BP 100/60 Blood Pressure Location Rt brachial Position Sitting Intake Visit Reasons: vaginal discharge Intake Note: Pt c/o: itching burning with white discharge Grinder Machine Setter Required: No Aluminum Welder: Aluminum Welder Present Accompanied by: Self / Same As Patient Allergies No Known Allergies [No Known Allergies*] Allergy (Verified 02/05/23 08:58) Medication List - Last Reconciled 02/05/23 by Shirley Fernandez CNM cetirizine (Zyrtec) 10 mg PO DAILY PRN cholecalciferol (vitamin D3) 2,000 units PO DAILY Tirosint (levothyroxine) 112 mcg PO DAILY 30 days NS vitamin E (dl, acetate) 45 mg PO DAILY Is last menstrual period known: Yes Last menstrual period: 01/25/23 HPI vaginal discharge HPI Details Patient is here because she has vaginal itching and slightly greenish discharge that started the day before her. But then she got her period and did not want to come in during that. She is not on any antibiotics she is planning a treatment with radioactive iodine in February it will be treatment 3. For her thyroid and she will have to be quarantine for 9 days in her house.. She is currently not contraceptive thing other than trying to be careful. They try to use condoms. She had a ParaGard IUD for 6 years and it worked well for 6 years but then she started to have issues. Initially her partner could feel it and they cut the strings 3 times but then it started to bother her as well and then she had it taken out.. She does know that she should get during this treatment. [facility] Medical History Acne History of thyroid cancer Hypothyroidism Local recurrence of cancer of thyroid gland Thyroid cancer Thyroid nodule Vitamin D deficiency Surgical History Hx of section Hx of knee surgery Hx of total thyroidectomy Family History Father Vitamin D deficiency Mother Depression Hypertension Water retention Thyroid nodule Paternal Grandfather Colon cancer Social History Alcohol intake: never Patient Tobacco Use Status: Never used Tobacco Sexual orientation: Straight/Heterosexual Gender identity: Female Female Reproductive History Menstrual Age of Menarche: 13 Date of last menstrual period: 01/25/23 Total pregnancies: 2 Number of Living Children: 2 Physical Exam Vital Signs: Last Vital Signs BP 100/60 02/05/23 08:58 BMI result Body Mass Index 28.0 Other: Cottage cheese like discharge with slight greenish tint. Cervix nulliparous (status post 2 C sections) with clear fertile type mucus coming from os. External Female Exam: normal external appearance (vulva swollen and enflamed, surface appears dry, disch c/w yeast ), normal appearance of the urethra, erythema and external swelling Speculum Exam - Vagina: normal appearance of the vagina and normal vaginal discharge (c/w yeast) Speculum Exam - Cervix: normal appearance of the cervix Assessment & Plan Assessment & Plan (1) Local recurrence of cancer of thyroid gland: Code(s): C73 - Malignant neoplasm of thyroid gland (2) Yeast infection involving the vagina and surrounding area: Code(s): B37.31 - Acute candidiasis of vulva and vagina (3) Family planning education, guidance, and counseling: Code(s): Z30.09 - Encounter for other general counseling and advice on contraception Plan ---I reviewed her symptoms we reviewed what she may have done alleviate symptoms. I reviewed contributing factors to yeast infection including clothing that may be a little tight or does not permit air to pass to the vulva well, including non cotton underwear, nylon and polyester type workout clothes and yoga pants, use of panty liners pads for periods etc. My recommendations include use of the medication that we decided upon, allowing air to her vulva as much as possible including wearing cotton underwear and possibly no underwear at night when possible. Any other contributing factors were explored. I encouraged her not to scratch. I reviewed what to do when she feels symptoms first starting, (re-double her efforts at allowing air to the area.) ---discussed that she is probably ovulating at this time and discussed the importance of being extra careful around times of ovulation both several days before and after so that she does not conceive discussed being very careful with condom use as it would not be advised for her to conceive around the time that she is planning this treatment for her thyroid. Also discussed re considering ParaGard use in the future as perhaps it had slipped ever so slightly as to cause discomfort for her. She is not interested now so I just urged caution. ----recommend lose cotton on these at night if she wears anything at all though she might need a some old cotton underwear while she is using the cream. I am ordering Monistat 7 with refills and recommend she continuous pickling line pickler helper a 2nd refill just in case she needs it while she is being quarantined in her house. Orders: Orders Bacterial Vaginosis Panel Today N89.8 - Other specified noninflammatory disorders of vagina CT NG by PCR Today N89.8 - Other specified noninflammatory disorders of vagina Medications: New miconazole nitrate 2% (Miconazole-7) 1 appful vaginal BEDTIME 7 days 45 grams 3RF Coding Level of Care Code Est Pt Level 3 (13162) Diagnoses Local recurrence of cancer of thyroid gland C73 Yeast infection involving the vagina and surrounding area B37.31 Family planning education, guidance, and counseling Z30.09
[2023-02-05 08:58] VITALS: BP 100/60; BMI 28.0
== END 2023-02-05 11:07 | disposition home or self-care (01) ==
LOC: HO.HWSM 08:55
PROVIDERS: PCP Registered Nurse; Visit Provider Advanced Practice Midwife
DX: C73 Malignant neoplasm of thyroid gland (principal); B37.31 Acute candidiasis of vulva and vagina; Z30.09 Encounter for other general counseling and advice on contraception
CPT/HCPCS: 99213

== ENCOUNTER 2023-02-05 08:55 | Outpatient (REF) | payer MEDICAID, SELFPAY ==
[2023-02-05 18:50] LABS: CT PCR NOT DETECTED (Not Detect.); NG PCR NOT DETECTED (Not Detect.)
[2023-02-06 11:49] LABS: BV Int Neg Control Negative (Negative); BV Int Pos Control Positive (Positive)
== END 2023-02-05 08:56 | disposition home or self-care (01) ==
LOC: HO.LNP 08:55
PROVIDERS: Internal Medicine; PCP Registered Nurse; Visit Provider Advanced Practice Midwife
DX: N89.8 Other specified noninflammatory disorders of vagina (principal); E03.9 Hypothyroidism, unspecified; C73 Malignant neoplasm of thyroid gland; B37.31 Acute candidiasis of vulva and vagina; Z85.850 Personal history of malignant neoplasm of thyroid
CPT/HCPCS: 0353U; 87480; 87510; 87660; 99213

== ENCOUNTER 2023-03-17 13:30 | Outpatient (AMB) | payer MEDICAID, SELFPAY ==
--- NOTE | 2023-03-17 13:36 | MHC.OFFVIS ---
Intake Intake Visit Reasons: Thyrogen inj Allergies No Known Allergies [No Known Allergies*] Allergy (Verified 02/05/23 08:58) PFSH Medical History Acne History of thyroid cancer Hypothyroidism Local recurrence of cancer of thyroid gland Thyroid cancer Thyroid nodule Vitamin D deficiency Surgical History Hx of section Hx of knee surgery Hx of total thyroidectomy Family History Father Vitamin D deficiency Mother Depression Hypertension Water retention Thyroid nodule Paternal Grandfather Colon cancer Social History Alcohol intake: never Patient Tobacco Use Status: Never used Tobacco Sexual orientation: Straight/Heterosexual Gender identity: Female Female Reproductive History Menstrual Age of Menarche: 13 Office Meds thyrotropin mumtaz 0.9 mg intramuscular solution Performing Provider: Shalini Hyde DO Performing Location: [facility] [place] Endocrinology Administered by: Ventura Rice RN on 03/17/23 13:36 Dose Route Admin Location Dispensed Lot Number Expiration Date ND Intelligence Specialist 0.9 mg IM R buttock 1 mL [id number] 05/29/25 Thyrogen Assessment & Plan Assessment & Plan Orders: Orders AMB Thyrotropin Mumtaz Injection Today C73 - Malignant neoplasm of thyroid gland Coding Level of Care Code Est Pt Level 2 (64159)
== END 2023-03-17 13:42 | disposition home or self-care (01) ==
PROVIDERS: PCP Registered Nurse; Visit Provider Internal Medicine Endocrinology, Diabetes & Metabolism
DX: C73 Malignant neoplasm of thyroid gland (principal)

== ENCOUNTER → 2023-03-17 13:30 | Outpatient (BNVA) | payer MEDICAID, SELFPAY | PROVIDERS: PCP Registered Nurse; Visit Provider Internal Medicine Endocrinology, Diabetes & Metabolism | DX: C73 Malignant neoplasm of thyroid gland (principal) | CPT/HCPCS: 96372 ==

== ENCOUNTER 2023-03-18 13:36 | Outpatient (REF) | payer MEDICAID, SELFPAY ==
[2023-03-18 15:15] LABS: HCG Quantitative < 2 mIU/mL
== END 2023-03-18 13:37 | disposition home or self-care (01) ==
LOC: HO.LAB 13:36
PROVIDERS: PCP Registered Nurse; Referring Provider Internal Medicine Endocrinology, Diabetes & Metabolism; Visit Provider Internal Medicine
DX: C73 Malignant neoplasm of thyroid gland (principal)
CPT/HCPCS: 36415; 84702; 96372

== ENCOUNTER 2023-03-18 13:36 | Outpatient (AMB) | payer MEDICAID, SELFPAY ==
--- NOTE | 2023-03-18 13:55 | AM.OFFVISNUR ---
Intake Intake Visit Reasons: Thyrogen inj Allergies No Known Allergies [No Known Allergies*] Allergy (Verified 02/05/23 08:58) Office Meds thyrotropin oli 0.9 mg intramuscular solution Performing Provider: Shalini Hyde DO [place] [facility] [place] [facility] Administered by: Ventura Rice RN on 03/18/23 13:55 Dose Route Admin Location Dispensed Lot Number Expiration Date NDC Foaming Machine Operator 0.9 mg IM L buttock 1 mL [id number] 05/29/25 Thyrogen Coding Assessment & Plan Assessment & Plan Orders: Orders AMB Thyrotropin Oli Injection Today C73 - Malignant neoplasm of thyroid gland
== END 2023-03-18 13:58 | disposition home or self-care (01) ==
PROVIDERS: PCP Registered Nurse; Visit Provider Internal Medicine
DX: C73 Malignant neoplasm of thyroid gland (principal)

== ENCOUNTER 2023-04-02 15:01 | Outpatient (REF) | payer MEDICAID, SELFPAY | END 2023-04-02 15:02 | disposition home or self-care (01) | LOC: HO.LAB 15:01 | PROVIDERS: PCP Registered Nurse; Visit Provider Advanced Practice Midwife | DX: Z01.419 Encounter for gynecological examination (general) (routine) without abnormal findings (principal); B37.31 Acute candidiasis of vulva and vagina; Z20.2 Contact with and (suspected) exposure to infections with a predominantly sexual mode of transmission; Z79.899 Other long term (current) drug therapy | CPT/HCPCS: 0353U; 87480; 87510; 87660; 99212 ==

== ENCOUNTER 2023-04-02 15:01 | Outpatient (AMB) | payer MEDICAID, SELFPAY ==
[2023-04-02 15:20] VITALS: BP 112/70; BMI 27.5
--- NOTE | 2023-04-02 15:20 | MHC.OFFVIS ---
Intake Vital Signs 04/02/23 15:20 Height 5 ft Weight 141 lb BMI 27.5 BP 112/70 Intake Visit Reasons: Vaginal Infection Registered Dental Hygienist Required: No Information Interpreted: clinical only Gymnastics Coach Or Instructor: Gymnastics Coach Or Instructor Present Allergies No Known Allergies [No Known Allergies*] Allergy (Verified 04/02/23 15:22) Medication List - Last Reconciled 04/02/23 by Shirley Fernandez CNM cetirizine (Zyrtec) 10 mg PO DAILY PRN cholecalciferol (vitamin D3) 2,000 units PO DAILY Tirosint (levothyroxine) 112 mcg PO DAILY 30 days NS vitamin E (dl, acetate) 45 mg PO DAILY Is last menstrual period known: Yes (03/25/23) HPI Vaginal Infection HPI Details Patient is here because she is having recurring and continuing symptoms of vaginal itching for which she has treated herself with Monistat cream. And she still is having cottage cheesy discharge occasionally. She underwent treatment for thyroid cancer with taking a radioactive treatment and needing to confine herself to her house by herself for a certain number of days and after that she had a full body scan and has been waiting to hear about the results of that and what the next step is. So because she could not go out she used the cream. 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 She uses pads and tampons when she has her. Because it can be very heavy and it bleeds through she cannot use the very large tampons they are too painful. She is able to use regular and super tampons. She also uses pads especially when she is at a client's house because she is afraid she will spill over. She last had sex in the beginning of February she has since broken up with her boyfriend of 8 years and she is now single. Previous to the thyroid cancer she had been contemplating a which is why she took out the ParaGard IUD but now she single. She does keep track of her periods and her last period started on the 20 says 6th so today is day 10 of her cycle [facility] Medical History Local recurrence of cancer of thyroid gland Acne History of thyroid cancer Hypothyroidism Thyroid cancer Vitamin D deficiency Thyroid nodule Surgical History Hx of total thyroidectomy Hx of knee surgery Hx of section Family History Father Vitamin D deficiency Mother Depression Hypertension Water retention Thyroid nodule Paternal Grandfather Colon cancer Social History Alcohol intake: never Patient Tobacco Use Status: Never used Tobacco Sexual orientation: Straight/Heterosexual Gender identity: Female Female Reproductive History Menstrual Age of Menarche: 13 Duration of menses: 6-7 days control method: none Physical Exam Vital Signs: Last Vital Signs BP 112/70 04/02/23 15:20 BMI result Body Mass Index 27.5 External Female Exam: normal external appearance, normal appearance of the urethra and erythema (Light pink consistent with chronic moisture pad use) Speculum Exam - Vagina: normal appearance of the vagina and normal vaginal discharge (c/w yeast) Speculum Exam - Cervix: normal appearance of the cervix Results Reviewed Results Reviewed: Name: Meredith Mcbride Age/Sex: 32/F Attending: Talia Yao CNM : 1990 Submitted by: Talia Yao CNM Copies to: Lizeth Bernard MR #: [id number] Status: DEP REF Collected: 11/06/22 Location: [facility] Received: 11/07/22 Interpretation Satisfactory for evaluation. Negative for intraepithelial lesion or malignancy. HPV mRNA E6/E7: NOT DETECTED This assay detects E6/E7 viral messenger RNA (mRNA) from 14 high-risk HPV types (16, 18, 31, 33, 35, 39, 45, 51, 52, 56, 58, 59, 66, 68) HPV testing performed by [facility], [place], [place]. See reference laboratory pion of the EMR for entire report. Clinical Information LMP: 10/30/22 Previous PAP test: 2020, WNL Material Received ThinPrep-Cervical Copies To Talia Yao [address] Jackson [address] [place] [id number] Lizeth Bernard HYDRAULIC ELEVATOR CONSTRUCTOR [address] [place] [address] Electronically Signed By: HAJA Meadows ([place]) 11/12/22 1514 The Pap Test is a screening procedure with the inherent possibility of both false negative and false positive results. Results should be interpreted in the context of historic and current clinical findings. Reliability of the Pap Test is enhanced by performing the test on a regular repetitive basis. Patient: Harman MckeonosMeredith Suhail Age/Sex: 32/F MR#: [id number] Page 1 of 1 Assessment & Plan Assessment & Plan (1) Yeast infection involving the vagina and surrounding area: Code(s): B37.31 - Acute candidiasis of vulva and vagina (2) Screen for sexually transmitted diseases: Code(s): Z11.3 - Encounter for screening for infections with a predominantly sexual mode of transmission (3) Family planning education, guidance, and counseling: Code(s): Z30.09 - Encounter for other general counseling and advice on contraception Plan Patient is here because she is having recurring and continuing symptoms of vaginal itching for which she has treated herself with Monistat cream. And she still is having cottage cheesy discharge occasionally. She underwent treatment for thyroid cancer with taking a radioactive treatment and needing to confine herself to her house by herself for a certain number of days and after that she had a full body scan and has been waiting to hear about the results of that and what the next step is. So because she could not go out she used the cream. 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 She uses pads and tampons when she has her. Because it can be very heavy and it bleeds through she cannot use the very large tampons they are too painful. She is able to use regular and super tampons. She also uses pads especially when she is at a client's house because she is afraid she will spill over. She last had sex in the beginning of February she has since broken up with her boyfriend of 8 years and she is now single. Previous to the thyroid cancer she had been contemplating a which is why she took out the ParaGard IUD but now she single. She does keep track of her periods and her last period started on the says 6th so today is day 10 of her cycle So discussed prevention and care of yeast she is gotten rid of all of her non cotton underwear and uses only cotton but she does use the pads and just stopped using them 2 days ago which would have been day 8 of her cycle. During the exam it is clear that she has what appears to be spin housekeeping aid bark ight fertile type clear mucus there is some scant white flecks consistent with mild yeast but her vulva is pink and it has been exposed to moisture or covered with a pad. I showed it to her with a mirror and suggested she try to stop pad use as soon as she can in her cycle as that is probably what is perpetuating part of the problem. Also discussed keeping very close track of her cycles and it is possible that she might be ovulating earlier in this cycle than usual so discussed protection from and awareness of ovulation. I offered her testing for STIs she was not particular worried but after thinking about it decided it would be a good idea to get lab work discussed that she can go now or she can go whenever she is getting lab work done for her thyroid follow-up. I discussed yeast and she may use the cream when she has mild yeast and she may use the Diflucan when she feels it is very severe.. Orders: Orders CT NG by PCR Today Z01.419 - Encounter for gynecological examination (general) (routine) without abnormal findings Bacterial Vaginosis Panel Today Z20.2 - Contact with and (suspected) exposure to infections with a predominantly sexual mode of transmission Hepatitis B Surface Antigen Today B37.31 - Acute candidiasis of vulva and vagina, Z11.3 - Encounter for screening for infections with a predominantly sexual mode of transmission, Z30.09 - Encounter for other general counseling and advice on contraception Hepatitis C Antibody Today B331 - Acute candidiasis of vulva and vagina, Z11.3 - Encounter for screening for infections with a predominantly sexual mode of transmission, Z30.09 - Encounter for other general counseling and advice on contraception HIV Ab/Ag Today B301.26 - Acute candidiasis of vulva and vagina, Z11.3 - Encounter for screening for infections with a predominantly sexual mode of transmission, Z30.09 - Encounter for other general counseling and advice on contraception Syphilis Screen Today B301.26 - Acute candidiasis of vulva and vagina, Z11.3 - Encounter for screening for infections with a predominantly sexual mode of transmission, Z30.09 - Encounter for other general counseling and advice on contraception Medications: New miconazole nitrate 2% (Miconazole-7) 1 appful vaginal BEDTIME 7 days 45 grams 3RF fluconazole may repeat second dose 72 hrs after first dose if symptoms persist 150 mg PO Q3D 2 doses 2 tabs 0RF Coding Level of Care Code Est Pt Level 3 (33177) Diagnoses Yeast infection involving the vagina and surrounding area B3.31 Screen for sexually transmitted diseases Z11.3 Family planning education, guidance, and counseling Z
== END 2023-04-02 16:12 | disposition home or self-care (01) ==
PROVIDERS: PCP Registered Nurse; Visit Provider Advanced Practice Midwife
DX: B37.31 Acute candidiasis of vulva and vagina (principal); Z11.3 Encounter for screening for infections with a predominantly sexual mode of transmission
CPT/HCPCS: 99213

== ENCOUNTER 2023-04-14 12:12 | Outpatient (REF) | payer MEDICAID, SELFPAY ==
[2023-04-15 07:57] LABS: Syphilis Screen Nonreactive (Nonreactive)
[2023-04-15 08:22] LABS: HBsAGNum1 0.33 S/CO (0.00-0.99); HIV AB/AG Nonreactive (Nonreactive); HIV Num 1 0.06 S/CO (0.00-0.99); Hepatitis B Surface Antigen Negative (Negative); ~HepC Num1 0.05 S/CO (0.00-0.79); ~Hepatitis C Antibody Nonreactive (Nonreactive)
== END 2023-04-14 12:13 | disposition home or self-care (01) ==
LOC: HO.LAB 12:12
PROVIDERS: PCP Physician Assistant; Visit Provider Advanced Practice Midwife
DX: B37.31 Acute candidiasis of vulva and vagina (principal); Z11.3 Encounter for screening for infections with a predominantly sexual mode of transmission
CPT/HCPCS: 36415; 86780; 86803; 87340; 87389

== ENCOUNTER 2023-05-08 12:55 | Outpatient (REF) | payer MEDICAID, SELFPAY ==
[2023-05-09 03:14] LABS: CT PCR NOT DETECTED (Not Detect.); NG PCR NOT DETECTED (Not Detect.)
[2023-05-09 12:41] LABS: BV Int Neg Control Negative (Negative); BV Int Pos Control Positive (Positive)
== END 2023-05-08 12:56 | disposition home or self-care (01) ==
LOC: HO.LAB 12:55
PROVIDERS: PCP Physician Assistant; Visit Provider Advanced Practice Midwife
DX: Z20.2 Contact with and (suspected) exposure to infections with a predominantly sexual mode of transmission (principal); B37.31 Acute candidiasis of vulva and vagina; Z30.09 Encounter for other general counseling and advice on contraception
CPT/HCPCS: 0353U; 87480; 87510; 87660; 99212

== ENCOUNTER 2023-05-08 12:55 | Outpatient (AMB) | payer MEDICAID, SELFPAY ==
[2023-05-08 13:04] VITALS: BP 110/68; BMI 28.9
--- NOTE | 2023-05-08 13:04 | A.OFFVIS_ITS ---
Intake Vital Signs 05/08/23 13:04 Height 5 ft Weight 148 lb BMI 28.9 BP 110/68 Intake Visit Reasons: Possible BV? Information Services Tech Required: No Information Interpreted: clinical only Animal Control Officer: Animal Control Officer Present Allergies No Known Allergies [No Known Allergies*] Allergy (Verified 05/08/23 13:06) Is last menstrual period known: Yes Last menstrual period: 04/24/23 HPI Possible BV? HPI Details Patient did not say anything about possible BV she has been dealing with recurrent vaginal itching and burning. She says she has stopped using panty liners she has started using tampons she has bought cotton or 97% cotton underwear and when she was staining at the end of her. She just let herself stain on the MDs. She goes without on these at night. She says she is wearing cotton underwear and she wears scrub tops and skirts but she wears like her and Spandex leggings all day long underneath her skirt so. She recently had her 2nd treatment for thyroid cancer. At her last visit a month ago she had told me that she had broken up with the father of her children. But he is back and he is trying so they have resumed having sex she is using withdrawal for control. She says they are being careful. She is waiting for the results of her scan after her 2nd treatment for her thyroid cancer and has an appointment with endocrinology on May 20. She is worried that there was something wrong with her and this could be cancer. She does have a very strong family history of diabetes all of the members of her family and also her father so family have diabetes. She thinks she was tested for diabetes but it was not a fasting test about a year ago but since then she has had to radioactive treatments for her thyroid gland. [facility] Medical History Local recurrence of cancer of thyroid gland Acne History of thyroid cancer Hypothyroidism Thyroid cancer Vitamin D deficiency Thyroid nodule Surgical History Hx of total thyroidectomy Hx of knee surgery Hx of section Family History Father Vitamin D deficiency Mother Depression Hypertension Water retention Thyroid nodule Paternal Grandfather Colon cancer Social History Alcohol intake: never Patient Tobacco Use Status: Never used Tobacco Sexual orientation: Straight/Heterosexual Gender identity: Female Female Reproductive History Menstrual Age of Menarche: 13 Date of last menstrual period: 04/24/23 control method: none Total pregnancies: 2 Full term: 2 History of abnormal pap smear: No (11/07/22) Physical Exam Vital Signs: Last Vital Signs BP 110/68 05/08/23 13:04 BMI result Body Mass Index 28.9 Other: External vagina within normal limits labia minora are slightly pink. Speculum exam clear pink mucosa slightly inflamed with clear mucus and tiny tiny flecks that would be consistent with the cottage cheesy discharge of a yeast infection. Her cervix appeared ill so multiparous got quite midcycle but in that range with normal mucus. She cites her LMP is a April 24. Results Reviewed Results Reviewed: Name: Meredith Mcbride Age/Sex: 32/F Attending: Talia Yao CNM : 1990 Submitted by: Talia Yao CNM Copies to: Lizeth Bernard MR #: [id number] Status: DEP REF Collected: 11/06/22 Location: [facility] Received: 11/07/22 Interpretation Satisfactory for evaluation. Negative for intraepithelial lesion or malignancy. HPV mRNA E6/E7: NOT DETECTED This assay detects E6/E7 viral messenger RNA (mRNA) from 14 high-risk HPV types (16, 18, 31, 33, 35, 39, 45, 51, 52, 56, 58, 59, 66, 68) HPV testing performed by [facility], [place], [place]. See reference laboratory pion of the EMR for entire report. Clinical Information LMP: 10/30/22 Previous PAP test: 2020, WNL Material Received ThinPrep-Cervical Copies To Talia Yao [address] Jackson [address] [place] [address] [id number] PamellahowardLizeth AUDIOLOGY DOCTOR [address] [place], [place] [id number] Electronically Signed By: HAJA Meadows ([facility]) 11/12/22 1514 The Pap Test is a screening procedure with the inherent possibility of both false negative and false positive results. Results should be interpreted in the context of historic and current clinical findings. Reliabili ty of the Pap Test is enhanced by performing the test on a regular repetitive basis. Patient: Meredith Mcbride Age/Sex: 32/F MR#: [id number] Page 1 of 1 Assessment & Plan Assessment & Plan (1) Screen for sexually transmitted diseases: Code(s): Z11.3 - Encounter for screening for infections with a predominantly sexual mode of transmission (2) Yeast infection involving the vagina and surrounding area: Comment: Recurrent yeast symptoms Code(s): B37.31 - Acute candidiasis of vulva and vagina (3) Family planning education, guidance, and counseling: Code(s): Z30.09 - Encounter for other general counseling and advice on contraception Plan I reviewed everything she has been doing and she has been putting in very dedicated efforts to try and improve her situation about the yeast she has used 2 doses of Diflucan because she still it symptoms 3 days after the 1st dose and she has used the cream the last time she used the cream was at the beginning of the month her last menstrual period was April 24 she says she and her partner are being very careful and she is not interested in any other method of control at this time. She does know and is very much trying to not get . She and her partner are trying to reconcile their differences. She is using withdrawal and feels confident with that. Discussed all that she has done changed to cotton underwear or almost all cotton underwear stopped using mini pads and panty liners. She sometimes goes without on these at night but she has also become sexually active on some of those nights as well. She is not sure if she has been screened and when exactly and how for diabetes and she is very worried that something is wrong with her and that this could be a representation of cancer I tried to reassure her that this does not appear in any way to be a manifestation of anything cancerous or worrisome. But it can still be very uncomfortable and difficult the only other new piece of information that was shared today was that she wears leggings every day underneath her skirt that she wears as part of her uniform it is now cold out so she needs to wear something for warmth. I did discuss with her that nylon and Spandex leggings trapped moisture and can contribute to recurrent yeast infections so that may be the last thing to change and what I would suggest is changing out of the tights as soon as she gets home. I am sending refills on her Diflucan and on her cream for her to use as she sees fit and I am sending an order for a fasting and 2 hour glucose screen to be 100% sure that we are not missing a diagnosis of diabetes if the level is anything other than completely normal I want her to discuss it when she sees Dr. Matson on May 20 as it would be an endocrine issue for him to address as well. This will be a fasting blood test Next visit here can be p.r.n.. If anything else shows up on any of the tests we will offer her treatment accordingly I did tell her that very often Gardnerella/BV can be present in vaginal agata normally and also certainly when somebody is sexually active, and not using condoms. Orders: Orders Bacterial Vaginosis Panel Today Z20.2 - Contact with and (suspected) exposure to infections with a predominantly sexual mode of transmission Glucose 2 Hour PP Today B37.31 - Acute candidiasis of vulva and vagina, Z11.3 - Encounter for screening for infections with a predominantly sexual mode of transmission CT NG by PCR Today Z01.419 - Encounter for gynecological examination (general) (routine) without abnormal findings Medications: Refilled fluconazole may repeat second dose 72 hrs after first dose if symptoms persist 150 mg PO Q3D 2 doses 2 tabs 0RF miconazole nitrate 2% (Miconazole-7) 1 appful vaginal BEDTIME 7 days 45 grams 3RF Coding Level of Care Code Est Pt Level 3 (33073) Diagnoses Screen for sexually transmitted diseases Z11.3 Yeast infection involving the vagina and surrounding area B37.31 Family planning education, guidance, and counseling Z30.09
== END 2023-05-08 13:37 | disposition home or self-care (01) ==
LOC: HO.HWS 12:55
PROVIDERS: PCP Physician Assistant; Visit Provider Advanced Practice Midwife
DX: B37.31 Acute candidiasis of vulva and vagina (principal); Z30.09 Encounter for other general counseling and advice on contraception
CPT/HCPCS: 99213

== ENCOUNTER 2023-05-12 07:25 | Outpatient (REF) | payer MEDICAID, SELFPAY | END 2023-05-12 07:26 | disposition home or self-care (01) | LOC: HO.LAB 07:25 | PROVIDERS: PCP Registered Nurse; Visit Provider Advanced Practice Midwife | DX: Z13.89 Encounter for screening for other disorder (principal) ==

== ENCOUNTER 2023-05-15 07:36 | Outpatient (REF) | payer MEDICAID, SELFPAY ==
[2023-05-15 08:31] LABS: Glucose Fasting 95 mg/dL (60-99)
[2023-05-15 10:42] LABS: Glucose 2 Hour 91 mg/dL
[2023-05-15 10:42] LABS: Glucose 1 Hour 65 mg/dL
== END 2023-05-15 07:37 | disposition home or self-care (01) ==
LOC: HO.LAB 07:36
PROVIDERS: PCP Registered Nurse; Visit Provider Advanced Practice Midwife
DX: B37.31 Acute candidiasis of vulva and vagina (principal); C73 Malignant neoplasm of thyroid gland
CPT/HCPCS: 36415; 82951

== ENCOUNTER 2023-05-15 11:42 | Outpatient (AMB) | payer MEDICAID, SELFPAY ==
--- NOTE | 2023-05-15 11:42 | A.OFFVIS_ITS ---
Intake Intake Visit Reasons: tv follow up labs Web Support Engineer Required: Yes Web Support Engineer Language: Citizen Of [place] Allergies No Known Allergies [No Known Allergies*] Allergy (Verified 05/15/23 11:43) Medication List - Last Reconciled 05/15/23 by Sihrley Fernandez CNM cetirizine (Zyrtec) 10 mg PO DAILY PRN cholecalciferol (vitamin D3) 2,000 units PO DAILY fluconazole 150 mg PO Q3D 2 doses miconazole nitrate 2% (Miconazole-7) 1 appful vaginal BEDTIME 7 days multivitamin (Daily Multi-Vitamin tablet) 1 tab PO DAILY Tirosint (levothyroxine) 112 mcg PO DAILY 30 days NS Is last menstrual period known: Yes Last menstrual period: 04/24/23 Post menopausal: No HPI tv follow up labs HPI Details This is a telephone visit to discuss patient's lab results that she had done today to rule out diabetes because of recurrent yeast infections she had recently had thyroid cancer and had had that treated twice so she was concerned that there was something much more severe wrong with her so a diagnostic Glucola screen was ordered to rule out diabetes in her case. Please see the previous visits for the lengthy discussions about yeast infections and all that was ruled out. PFSH Medical History Local recurrence of cancer of thyroid gland Acne History of thyroid cancer Hypothyroidism Thyroid cancer Vitamin D deficiency Thyroid nodule Surgical History Hx of total thyroidectomy Hx of knee surgery Hx of section Family History Father Vitamin D deficiency Mother Depression Hypertension Water retention Thyroid nodule Paternal Grandfather Colon cancer Social History Alcohol intake: never Patient Tobacco Use Status: Never used Tobacco Sexual orientation: Straight/Heterosexual Gender identity: Female Female Reproductive History Menstrual Age of Menarche: 13 Duration of menses: 6-7 days Date of last menstrual period: 04/24/23 control method: none Results Reviewed Results Reviewed: Name: Meredith Mcbride Age/Sex: 32/F : 1990 Unit#: [id number] Attend Dr: RebeccaShirley [facility] Re05/15/23 Status: REG REF Location: .LAB Disch: SPEC : [id number] SUMANTH: 05/15/23 STATUS: COMP REQ : [id number] RECD: 05/15/23-[address]: RebeccaShirley EDUIN COMP: 05/15/23-1041 ENTERED: 05/15/[address]: Lizeth Bernard NEWS PRODUCTION ASSISTANT ORDERED: GTT 2 Hr Test Result Flag Reference Site Glucose Jody 2Hr GLU FAST 95 Col: 05/15/23 0746 GLU 1H 65 Col: 05/15/23 0848 GLU 2H 91 Col: 05/15/23 0950 Assessment & Plan Assessment & Plan (1) Yeast infection involving the vagina and surrounding area: Comment: Recurrent yeast symptoms Code(s): B37.31 - Acute candidiasis of vulva and vagina (2) Local recurrence of cancer of thyroid gland: Code(s): C73 - Malignant neoplasm of thyroid gland Plan I reviewed her normal labs with her so she does not need to worry about diabetes. 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 She has already switched to cotton undies and dropped use of panty liners and is being very careful in other ways. She is already feeling better just with using the cream. The pharmacy had run out of Diflucan and was not available but I recommend she pick it up when it becomes available so she has it on hand should she need discussed ways of self treating. And she has her follow-up visit with her vehicle body maker for follow-up of the thyroid cancer next week so at least she can relax about not having diabetes. Telehealth Telehealth Location of provider rendering services: practice address Location of patient: address on file Patient Identification confirmed using: Name, : Yes Telehealth method: video (She agreed to video but only connected by voice.) Patient verbally consented to treatment: Yes Patient verbally consented to billing insurance company: Yes Patient informed of any privacy concerns related to visit: Yes Coding Level of Care Code Tele Est Pt Level 3 (06970) Diagnoses Yeast infection involving the vagina and surrounding area B37.31 Local recurrence of cancer of thyroid gland C73 Time Spent (min) 12 Comment 3 cr/6 speaking w pt/3 charting
== END 2023-05-15 13:13 | disposition home or self-care (01) ==
PROVIDERS: PCP Registered Nurse; Visit Provider Advanced Practice Midwife
DX: B37.31 Acute candidiasis of vulva and vagina (principal); C73 Malignant neoplasm of thyroid gland
CPT/HCPCS: 99213

== ENCOUNTER 2023-05-20 13:21 | Outpatient (AMB) | payer MEDICAID, SELFPAY ==
[2023-05-20 13:23] VITALS: BP 104/68; PULSE 103; BMI 29.0
--- NOTE | 2023-05-20 13:23 | A.OFFVIS_ITS ---
Intake Vital Signs 05/20/23 13:23 Height 5 ft Weight 148 lb 5.938 oz BMI 29.0 BP 104/68 Blood Pressure Location Lt brachial Position Sitting Pulse 103 H Pulse Source Pulse Oximeter Intake Visit Reasons: Body scan results-LV Intake Note: Former Dr. Albrecht patient. Patient present today for Thyroid Cancer follow up. Patient had WBS scan done at [facility] on . 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 Accompanied by: Self / Same As Patient Allergies No Known Allergies [No Known Allergies*] Allergy (Verified 05/20/23 13:28) Medication List - Last Reconciled 05/20/23 by Phong Matson MD cetirizine (Zyrtec) 10 mg PO DAILY PRN cholecalciferol (vitamin D3) 2,000 units PO DAILY fluconazole 150 mg PO Q3D 2 doses miconazole nitrate 2% (Miconazole-7) 1 appful vaginal BEDTIME 7 days multivitamin (Daily Multi-Vitamin tablet) 1 tab PO DAILY Tirosint (levothyroxine) 112 mcg PO DAILY 30 days NS HPI HPI Comments History of Present Illness Details 32 YO F with no significant PMHx who is seen in F/U for thyroid cancer.. The patient last saw Dr. Albrecht on 01/22/2023 Was initially diagnosed with multinodular thyroid in 2019 with thyroid US revealing a large RMP nodule measuring 4.1 cm. This was biopsied by IR 03/07/2019 with benign cytology (Patriot Category II). She was referred to Dr. Clint Cooper and underwent a R hemithyroidectomy due to compressive symptoms. 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 There was no angioinvasion, no lymphatic invasion, no perneural invasion, no extrathyroidal extension, and negative margins. No lymph nodes were excised. This was staged as pT2pNx. She underwent a completion thyroidectomy in November 06, 2020 with official surgical path benign. She was started on Tirosint 112 mcg PO daily postoperative, and reports good compliance with this. She underwent thyrogen stimulated remnant ablation on 05/01/2021 with 30.2 mCi of I131. TSH at that time was 76.3, but unfortunately no TG or TG antibodies were drawn at that time. WBS completed 05/10/2021 revealed intense foci of uptake within the neck, but otherwise only physiologic uptake. She had labs repeated 08/22/2021 with TSH 0.11, TG <0.1 and negative TG antibodies. Labs 11/26/2021 with TSH 0.29, TG <0.1 and TGAB <1. She had an US of the neck which revealed no abnormal appearing lymph nodes at that time. She then underwent a repeat WBS 10/24/2022 via thyroid hormone withdrawal. 10/16/2022 TSH 33.95, TG 0.9 and TGAB <1. WBS revealed increased radiotracer uptake in the upper neck in the region of the right thyroidectomy bed and along the thyroglossal duct. Uptake was otherwise physiologic. She underwent an US head and neck which did reveal multiple abnormal and enlarged lymph nodes bilaterally. I repeated her US myself and noted an abnormal appearing 0.7 cm lymph node in the right level 1B. No FNA was completed based on size. Patient presents today to discuss high dose I131 treatment. Whole Body Scan: 10/24/2022 Increased tracer radioiodine uptake in the upper neck in the region of the right thyroidectomy bed and along the thyroglossal duct. 48 hours uptake in the neck was 0.2%. Impression: Residual radioiodine activity within the neck suggestive of thyroid tissue or local disease. No evidence for iodine avid distant metastatic disease. US Head and Neck: 10/31/2022 THYROID BED: Prior thyroidectomy. No residual thyroid tissue demonstrated in the thyroid bed. No cystic or solid nodules demonstrated in the thyroid bed. There is a new midline level 1A lymph node that measures 6 x 3 x 7 mm in sagittal AP and transverse dimension. This is normal in size and demonstrate normal ultrasound morphology and flow. There are 7 lymph nodes identified in the right neck. There is a level 1A lymph node that is normal appearing a nd stable. There is a newly appreciated 1B lymph node that measures 7 x 5 x 6 mm and is normal in size. This demonstrates abnormal morphology with absent fatty hilum and round shape. There is a level 2 lymph node that has normal ultrasound morphology and is normal in size but slightly increased in size compared to prior prior exam. There is a new level 3 lymph node that is upper normal in size measuring 1.6 x 0.3 x 0.9 cm and has normal ultrasound morphology. There is a newly appreciated right level 3 lymph node that is upper normal in size measuring 1.4 x 0.3 x 0.8 cm. This has abnormal morphology with absent fatty hilum. There is a newly appreciated right level 4 lymph node that is upper normal in size measuring 1.1 x 0.2 x 0.9 cm and has normal ultrasound morphology. There is a newly appreciated slightly enlarged right level 5A lymph node that measures 1.4 x 0.3 x 1.2 cm and has normal ultrasound morphology. There are 2 newly appreciated left cervical lymph nodes. There is a level 1 lymph node that is upper normal in size measuring 0.8 x 0.7 x 1.5 cm and has normal ultrasound morphol ogy. There is an upper normal level 3 lymph node that measures 1.6 x 0.2 x 0.7 cm and has abnormal ultrasound morphology with absent fatty hilum. There are 2 adjacent level 5A normal-appearing lymph nodes that was measured as one lymph node on prior exam. These are normal in size and have normal ultrasound morphology. Labs: Laboratory Tests 11/12/22 12/16/22 15:09 08:56 TSH 0.04 L Thyroglobulin 0.1 H Thyroglobulin Anti body <1 PFSH Medical History Local recurrence of cancer of thyroid gland Acne History of thyroid cancer Hypothyroidism Thyroid cancer Vitamin D deficiency Thyroid nodule Surgical History Hx of total thyroidectomy Hx of knee surgery Hx of section Family History Father Vitamin D deficiency Mother Depression Hypertension Water retention Thyroid nodule Paternal Grandfather Colon cancer Alcohol intake: never Patient Tobacco Use Status: Never used Tobacco Sexual orientation: Straight/Heterosexual Gender identity: Female Female Reproductive History Menstrual Age of Menarche: 13 Physical Exam Vital Signs: Last Vital Signs Pulse 103 H 05/20/23 13:23 BP 104/68 05/20/23 13:23 BMI result Body Mass Index 29.0 Const Other: Healed scar status post thyroidectomy. 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 There was no angioinvasion, no lymphatic invasion, no perneural invasion, no extrathyroidal extension, and negative margins. No lymph nodes were excised. This was staged as pT2pNx. She underwent treatment with low-dose radioactive iodine 30 mCi and a 2nd dose recently. 150 mCi. She is currently on Tirosint 112 mcg. She appears to be clinically euthyroid. Recent total body scan done with Thyrogen show residual uptake in the neck and right hemipelvis. Somewhat reassuring have been the the thyroglobulin levels have been low and stable and neck ultrasound has been negative The plan is to recheck TSH, free T4 as well as thyroglobulin. . I will talk to the patient about potentially getting a 2nd opinion with Dr. Brenda Zambrano to see if recent total body scan showed physiologic uptake in the pelvis versus pathologic uptake that requires further imaging. Depending on the above, could consider target of TSH. Dr. Zambrano will probably in the performing neck u ltrasound at the time of visit Orders: Referrals Endocrinology Referral C73 - Malignant neoplasm of thyroid gland Coding Level of Care Code Est Pt Level 3 (08220) Diagnoses Thyroid cancer C73
== END 2023-05-20 14:24 | disposition home or self-care (01) ==
PROVIDERS: PCP Registered Nurse; Visit Provider Internal Medicine Endocrinology, Diabetes & Metabolism
DX: C73 Malignant neoplasm of thyroid gland (principal); Z90.89 Acquired absence of other organs
CPT/HCPCS: 99213

== ENCOUNTER → 2023-05-20 13:21 | Outpatient (BNVA) | payer MEDICAID, SELFPAY | PROVIDERS: PCP Registered Nurse; Visit Provider Internal Medicine Endocrinology, Diabetes & Metabolism | DX: C73 Malignant neoplasm of thyroid gland (principal); E03.9 Hypothyroidism, unspecified; Z85.850 Personal history of malignant neoplasm of thyroid | CPT/HCPCS: 99212 ==

== ENCOUNTER 2023-05-25 10:19 | Outpatient (REF) | payer MEDICAID, SELFPAY ==
[2023-05-25 11:51] LABS: Free T4 (Free Thyroxine) 1.16 ng/dL (0.71-1.85); Thyroid Stimulating Hormone 0.17 uIU/mL (0.32-4.0)
[2023-05-28 06:43] LABS: Thyroglobulin Antibody <1 IU/mL (<=1); Thyroglobulin Level <0.1 ng/mL
== END 2023-05-25 10:20 | disposition home or self-care (01) ==
LOC: HO.LAB 10:19
PROVIDERS: PCP Registered Nurse; Referring Provider Internal Medicine Endocrinology, Diabetes & Metabolism; Visit Provider Internal Medicine
DX: E03.9 Hypothyroidism, unspecified (principal); B37.31 Acute candidiasis of vulva and vagina; Z11.3 Encounter for screening for infections with a predominantly sexual mode of transmission; Z85.850 Personal history of malignant neoplasm of thyroid
CPT/HCPCS: 36415; 84432; 84439; 84443; 86800

== ENCOUNTER 2023-09-10 16:22 | Emergency (ER) | payer MEDICAID, SELFPAY ==
[2023-09-10 16:38] VITALS: BP 116/68; PULSE 75; RESP 16; TEMP 36.2; O2SAT 97; BMI 23.2
--- NOTE | 2023-09-10 16:39 | ED.GENADULT ---
HPI - General Adult General Chief complaint: Upper Respiratory Symptoms Stated complaint: facial pain since last Tues. antibiotics no work Time Seen by Provider: 09/10/23 19:30 History of Present Illness HPI narrative: Patient is a 32-year-old female presents today with having pain to the right face area for the last 8 days. Went to a walk-in clinic was given antibiotics. Patient denies any recent dental work. Denies any change in her voice. Denies any difficulty breathing. Denies any difficulty swallowing. Complaining of pain with no specific trigger. There has no specific swelling. Patient from home. Has a history of hypothyroid is currently on Synthroid. No additional home medications. Related Data Home Medications Medication Instructions Recorded Confirmed cholecalciferol (vitamin D3) 50 2,000 unit PO DAILY 04/05/20 05/15/23 mcg (2,000 unit) capsule cetirizine 10 mg tablet (Zyrtec) 10 mg PO DAILY PRN 11/06/22 05/15/23 multivitamin (Daily Multi-Vitamin 1 tab PO DAILY 05/08/23 05/15/23 tablet) Previous Rx's Medication Instructions Recorded fluconazole 150 mg tablet 150 mg PO Q3D 2 doses #2 tabs 05/08/23 miconazole nitrate 2 % vaginal 1 appful vaginal BEDTIME 7 days 05/08/23 cream (Miconazole-7) #45 grams Tirosint 112 mcg capsule 112 mcg PO DAILY #90 caps 05/25/23 (levothyroxine) ibuprofen 400 mg tablet 400 mg PO Q6H PRN pain #20 tabs 09/10/23 Allergies Allergy/AdvReac Type Severity Reaction Status Date / Time No Known Allergies Allergy Verified 05/20/23 13:28 [No Known Allergies*] Review of Systems Review of Systems: Positive facial pain Yes all other systems are reviewed and are negative PMFSH Past Medical History Attestation statement: The following information was validated with the patient. Medical History Local recurrence of cancer of thyroid gland Acne History of thyroid cancer Hypothyroidism Thyroid cancer Vitamin D deficiency Thyroid nodule Surgical History Hx of total thyroidectomy Hx of knee surgery Hx of section Family History Family History Father Vitamin D deficiency Mother Depression Hypertension Water retention Thyroid nodule Paternal Grandfather Colon cancer Social History Social History Alcohol intake: never Patient Tobacco Use Status: Never used Tobacco Advance Directives: No Advance Directives Information Provided: No Sexual orientation: Straight/Heterosexual Gender identity: Female Physical Exam ED Vital Signs: Vital Signs - 24 hr 09/10/23 16:38 09/10/23 19:23 Temperature 97.1 F 98.7 F Pulse Rate 75 57 Respiratory Rate 16 16 Blood Pressure 116/68 122/74 Pulse Oximetry 97 100 Oxygen Delivery Method Room Air Room Air BMI result Body Mass Index 23.2 Appearance: Alert. Oriented X3. No acute distress. Eyes: Pupils equal, round and reactive to light. ENT: Pharynx normal. There is no tenderness on palpation of the floor of the mouth. Posterior pharynx is normal. There has no dental abscess palpable. There is no parotid tenderness. There has no submandibular gland tenderness. There has no mastoid tenderness. TMs are intact bilaterally. Neck: Normal inspection. Neck supple. No lymph nodes noted. No crepitus CVS: Normal heart rate and rhythm. Pulses normal. Normal S1 and S2 Respiratory: No respiratory distress. Breath sounds normal. No Wheezing. No rales Abdomen: Soft and nontender. No rigidity. No distention. good BS x4 Skin: Skin warm and dry. Normal skin color. Normal skin turgor. Extremities: No lower extremity edema. Neurovascular intact to all extremities. No Lacerations. No Rash Neuro: Oriented X 3. No motor deficit. No sensory deficit. Moving all extermities. No slurred speech Course Course Course Narrative: This is an RME: Additional HPI, ROS, PE not included below will be deferred to primary provider.32 yo f presents w/ sore throat for the past few weeks not improving. A/c right sided facial pain. No recent dental work. 09/03/23- [facility] told her she had an infection in her throat and gave her atbx ( amox) still taking Plan- strep Medical Decision Making Medical Decision Making MDM Narrative: Patient well-appearing exam is normal no difficulty breathing no difficulty swallowing no difficulty with her voice. Question pain that has been ongoing for the last 8 days. Will have patient follow-up with ENT. Can not exclude the possibility of trigeminal neuralgia versus TMJ issues. In no distress. Will discharge patient home follow-up outpatient. Differential Diagnosis Differential Diagnoses: The differential diagnosis associated with the presentation includes TMJ, prostatitis, otitis media, trigeminal neuralgia Admission/Observation Consideration of admission/observation: Escalation of care including admission/observation considered Lab Data MDM Lab Attestation statement: I reviewed the patient's lab results. Labs: Lab Results 09/10/23 Range/Units 17:12 Influenza Type A (PCR) NEGATIVE (Negative) Influenza Type B (PCR) NEGATIVE (Negative) RSV RNA Qual (PCR) NEGATIVE (Negative) SARS-CoV-2 RNA (RT-PCR) NEGATIVE (Negative) S. pyogenes GrpA JONAH Negative (Negative) Discharge Plan Discharge Clinical Impression: Acute facial pain Patient Disposition: Home, Self-Care Instructions: Temporomandibular Disorder (ED) Prescriptions: New ibuprofen 400 mg tablet 400 mg PO Q6H PRN (Reason: pain) Qty: 20 0RF No Action levothyroxine [Tirosint] 112 mcg capsule 112 mcg PO DAILY Qty: 90 1RF cholecalciferol (vitamin D3) 50 mcg (2,000 unit) capsule 2,000 unit PO DAILY cetirizine [Zyrtec] 10 mg tablet 10 mg PO DAILY PRN multivitamin [Daily Multi-Vitamin] Tablet 1 tab PO DAILY fluconazole 150 mg tablet 150 mg PO Q3D 0 Days Qty: 2 0RF Rx Instructions: may repeat second dose 72 hrs after first dose if symptoms persist miconazole nitrate [Miconazole-7] 2 % cream 1 appful vaginal BEDTIME 7 Days Qty: 45 3RF Referrals: Alfonso Toussaint [Physician] - 09/14/23
[2023-09-10 17:38] LABS: IDNOW Serial# 08D9AD1C; Strep A Nucleic Acid Negative (Negative)
[2023-09-10 18:02] LABS: Influenza A PCR NEGATIVE (Negative); Influenza B PCR NEGATIVE (Negative); Resp Syncy Virus RNA Qual PCR NEGATIVE (Negative); SARS COV2 PCR INHOUSE NEGATIVE (Negative)
[2023-09-10 19:23] VITALS: BP 122/74; PULSE 57; RESP 16; TEMP 37.1; O2SAT 100
[2023-09-10 20:12] VITALS: BP 122/74; PULSE 57; RESP 16; TEMP 36.7; O2SAT 100
== END 2023-09-10 20:15 | disposition home or self-care (01) ==
PROVIDERS: Physician Assistant; Emergency Provider Emergency Medicine Emergency Medical Services; PCP Physician Assistant
DX: R51.9 Headache, unspecified (principal); Z79.899 Other long term (current) drug therapy; Z11.52 Encounter for screening for COVID-19; Z20.822 Contact with and (suspected) exposure to COVID-19
CPT/HCPCS: 0241U; 87651; 99283

== ENCOUNTER 2023-09-14 09:36 | Outpatient (REF) | payer MEDICAID, SELFPAY ==
[2023-09-14 14:04] LABS: MANUAL DIFF FLAG NO
[2023-09-14 14:13] LABS: Basophils Percent Auto 0.6 % (0-2); Eosinophils Absolute Auto 0.3 X10*3/uL (0.0-0.4); Eosinophils Percent Auto 5.7 % (0-4); Hematocrit 36.5 % (37.0-47.0); Hemoglobin 12.5 g/dl (12.0-16.0); Imm Gran Abs Auto 0.01 X10*3/uL (0.00-0.03); Imm Gran Pct Auto 0.2 % (0.0-0.4); Lymphocytes Absolute Auto 1.6 X10*3/uL (1.2-4.9); Lymphocytes Percent Auto 32.9 % (20-40); Mean Corpuscular HGB Conc 34.2 g/dl (31.0-35.0); Mean Corpuscular Volume 81.8 fL (80.0-98.0); Mean Platelet Volume 10.8 fL (9.4-12.3); Monocytes Absolute Auto 0.3 X10*3/uL (0.1-1.2); Monocytes Percent Auto 7.2 % (2-11); Neutrophils Absolute Auto 2.5 x10*3/uL (2.0-8.3); Neutrophils Percent Auto 53.4 % (45-73); Platelet Count 195 X10*3/uL (160-400); Red Blood Count 4.46 X10*6/uL (4.20-5.50); Red Cell Distribution Width 14.5 % (11.0-16.0); White Blood Count 4.7 X10*3/uL (4.8-10.8)
[2023-09-14 15:11] LABS: Iron 71 mcg/dL (30-160); Percent Iron Saturation 24 % (15-50); Total Iron Binding Capacity 290 mcg/dL (228-428); Unsaturated Iron Binding 219 ug/dL
[2023-09-14 15:14] LABS: Ferritin 27 ng/mL (10-122)
== END 2023-09-14 09:37 | disposition home or self-care (01) ==
LOC: HO.CHCLDS 09:36
PROVIDERS: Visit Provider Registered Nurse
DX: E61.1 Iron deficiency (principal)
CPT/HCPCS: 36415; 82728; 83540; 85025

== ENCOUNTER 2023-09-23 08:13 | Outpatient (REF) | payer MEDICAID, SELFPAY ==
--- NOTE | ~2023-09-23 | CT_ITS ---
EXAMINATION: CT PELVIS WITH CONTRAST CLINICAL INFORMATION: Malignant neoplasm of thyroid gland, additional notes/special instructions, thyroid cancer with uptake on total body scan in pelvis. Please correlate with CT scan. COMPARISON: Pelvic ultrasound 11/26/2021. TECHNIQUE: Helical scanning was performed with submillimeter collimation through the pelvis with the use of oral contrast and during bolus intravenous injection of 85 mL of Omnipaque 350 intravenous contrast. Sagittal and coronal multiplanar 2-D reconstructions were obtained. This CT examination was performed using dose optimization techniques as appropriate, variously including the following: *Automated exposure control *Adjustment of mA and/or kV according to patient size (this includes techniques or standardized protocols for targeted exams where dose is matched to indication/reason for exam; i.e. extremities or head) *Use of iterative reconstruction technique DLP: 436 mGy-cm FINDINGS: PELVIS: Uterus is anteverted. There is a slightly lobular border. And IUD which has been seen on prior pelvic ultrasounds is not seen on the current study. A small 1.5 cm right ovarian cyst is present. No free fluid is present in the cul-de-sac. No retroperitoneal adenopathy. The visualized bowel is unremarkable. OSSEOUS STRUCTURES: No abnormalities detected in the visualized osseous structures. CT/CT pelvis w IV con IMPRESSION: 1. No evidence of metastatic disease in the pelvis. 2. Incidental note made of a small 1.5 cm right ovarian cyst. 3. An IUD is not seen on the current study. 4. Slightly lobular uterine border could represent fibroids.
[2023-09-23] MEDS: iohexoL 350 MG/ML 100 ML INFUS..BTL 85 ML IV (08:57)
[2023-09-23 09:31] LABS: Free T4 (Free Thyroxine) 1.33 ng/dL (0.71-1.85); Thyroid Stimulating Hormone 0.07 uIU/mL (0.32-4.0)
[2023-09-26 06:53] LABS: Thyroglobulin Antibody <1 IU/mL (<=1); Thyroglobulin Level <0.1 ng/mL
== END 2023-09-23 08:14 | disposition home or self-care (01) ==
LOC: HO.CT 08:13
PROVIDERS: PCP Physician Assistant; Visit Provider Internal Medicine Endocrinology, Diabetes & Metabolism
DX: C73 Malignant neoplasm of thyroid gland (principal)
CPT/HCPCS: 36415; 72193; 84432; 84439; 84443; 86800; Q9967

== ENCOUNTER 2023-10-27 11:24 | Outpatient (AMB) | payer MEDICAID, SELFPAY ==
[2023-10-27 11:58] VITALS: BP 118/66; BMI 25.2
--- NOTE | 2023-10-27 11:58 | MHC.OFFVIS ---
Vital Signs 10/27/23 11:58 Height 5 ft 4 in Weight 147 lb BMI 25.2 BP 118/66 Intake Visit Reasons: cyst on ct Mixing Machine Feeder Required: No Information Interpreted: clinical only Bottom Presser: Bottom Presser Present Allergies No Known Allergies [No Known Allergies*] Allergy (Verified 10/27/23 12:01) Medication List - Last Reconciled 10/27/23 by Shirley Fernandez CNM cetirizine (Zyrtec) 10 mg PO DAILY PRN cholecalciferol (vitamin D3) 2,000 units PO DAILY fluconazole 150 mg PO Q3D 2 doses ibuprofen 400 mg PO Q6H PRN miconazole nitrate 2% (Miconazole-7) 1 appful vaginal BEDTIME 7 days multivitamin (Daily Multi-Vitamin tablet) 1 tab PO DAILY Tirosint (levothyroxine) 100 mcg PO DAILY NS Is last menstrual period known: Yes Last menstrual period: 10/09/23 Patient : No Do you need a note to return to daycare/school/sports/work: No HPI HPI cyst on ct: Details: Patient says she is here to follow-up on a scan that she had done that was ordered through endocrinology. She has been undergoing treatment for thyroid cancer and she had her last full treatment last February she had also been treated in 2020 in 2021. She had different scans that showed different things and she was sent to a doctor in [place] that recommended that she have of pelvic CT scan and that was done in August and the patient says she is here to discuss those results with me today. I reviewed the CT scan and I also reviewed others studies that have been done and also my previous visits with her to try to understand why she was appointed with me today. In reviewing the CT scan the patient says she was told she had a fibroma on the left side. And she said she was thinking that was why she always had pain on that side. In reviewing the CT scan there has a small 1.5 cm simple right ovarian cyst and there is not a mention of a fibroma other than a notation about the wall of the uterus. I reviewed this and several other studies that were in the system with her. Patient really should happen scheduled with Dr. Jaramillo gynecology for thorough review and consideration for whether not any further study or evaluation should be done and if so what would be the best methodology. Patient will be scheduled with Dr. Jaramillo. It also appears that her annual exam on November 08 but canceled and so that will be rescheduled as well. Her last menstrual period was October 10. The last time she was sexually active was before that. She believes that she has not going to be with her partner any more as it seems that is not going to work. Reviewed safer sex also reviewed vulvar care as regards to avoiding tight clothing she and I have discussed these issues with previous diagnoses of yeast and BV in the past. PFSH Medical History Local recurrence of cancer of thyroid gland Acne History of thyroid cancer Hypothyroidism Thyroid cancer Vitamin D deficiency Thyroid nodule Surgical History Hx of total thyroidectomy Hx of knee surgery Hx of section Family History Father Vitamin D deficiency Mother Depression Hypertension Water retention Thyroid nodule Paternal Grandfather Colon cancer Social History Alcohol intake: never Patient Tobacco Use Status: Never used Tobacco Patient : No Sexual orientation: Straight/Heterosexual Gender identity: Female Female Reproductive History Menstrual Age of Menarche: 13 Duration of menses: 3-5 days Date of last menstrual period: 10/09/23 control method: none Total pregnancies: 2 Full term: 2 Date of last pap smear: 11/07/22 (neg,previous pap 2020 neg.) History of abnormal pap smear: No Physical Exam Vital Signs: Last Vital Signs BP 118/66 10/27/23 11:58 BMI result Body Mass Index 25.2 Results Reviewed Results Reviewed: Patient: Meredith Mcbride MR#: [id number] : 1990 Acct:[id number] Age/Sex: 33 / F ADM Date: 09/23/23 Loc: HO.CT Attending Dr: Phong Matson MD Ordering Physician: Phong Matson MD Date of Service: 09/23/23 Procedure(s): CT pelvis w IV con Accession Number(s): [id number] cc: Phong Matson MD; Jose Mabry PA-C~ EXAMINATION: CT PELVIS WITH CONTRAST CLINICAL INFORMATION: Malignant neoplasm of thyroid gland, additional notes/special instructions, thyroid cancer with uptake on total body scan in pelvis. Please correlate with CT scan. COMPARISON: Pelvic ultrasound 11/26/2021. TECHNIQUE: Helical scanning was performed with submillimeter collimation through the pelvis with the use of oral contrast and during bolus intravenous injection of 85 mL of Omnipaque 350 intravenous contrast. Sagittal and coronal multiplanar 2-D reconstructions were obtained. This CT examination was performed using dose optimization techniques as appropriate, variously including the following: *Automated exposure control *Adjustment of mA and/or kV according to patient size (this includes techniques or standardized protocols for targeted exams where dose is matched to indication/reason for exam; i.e. extremities or head) *Use of iterative reconstruction technique DLP: 436 mGy-cm FINDINGS: PELVIS: Uterus is anteverted. There is a slightly lobular border. And IUD which has been seen on prior pelvic ultrasounds is not seen on the current study. A small 1.5 cm right ovarian cyst is present. No free fluid is present in the cul-de-sac. No retroperitoneal adenopathy. The visualized bowel is unremarkable. OSSEOUS STRUCTURES: No abnormalities detected in the visualized osseous structures. CT/CT pelvis w IV con IMPRESSION: 1. No evidence of metastatic disease in the pelvis. 2. Incidental note made of a small 1.5 cm right ovarian cyst. 3. An IUD is not seen on the current study. 4. Slightly lobular uterine border could represent fibroids. Dictated By: Donovan Baron MD Signed By: <Electronically signed by Donovan Baron MD in OV> 10/05/2357 DD/ TD/TT: Gasoline Service Attendant: SS Name: Meredith Mcbride Age/Sex: 32/F Attending: Talia Yao CNM : 1990 Submitted by: Talia Yao CNM Copies to: PamellahowardLizeth VICTORINO MR #: [id number] Status: DEP REF Collected: 11/06/22 Location: [facility] Received: 11/07/22 Interpretation Satisfactory for evaluation. Negative for intraepithelial lesion or malignancy. HPV mRNA E6/E7: NOT DETECTED This assay detects E6/E7 viral messenger RNA (mRNA) from 14 high-risk HPV types (16, 18, 31, 33, 35, 39, 45, 51, 52, 56, 58, 59, 66, 68) HPV testing performed by [facility], [place], [place]. See reference laboratory pion of the EMR for entire report. Clinical Information LMP: 10/30/22 Previous PAP test: 2020, WNL Material Received ThinPrep-Cervical Copies To Talia Yao CNM [address] [place] [address] Dr. Jackson [address] [place] [id number] Lizeth Bernard [address] [place] [address] Electronically Signed By: HAJA Meadows (ASCP) 11/12/22 1550 The Pap Test is a screening procedure with the inherent possibility of both false negative and false positive results. Results should be interpreted in the context of historic and current clinical findings. Reliability of the Pap Test is enhanced by performing the test on a regular repetitive basis. Patient: Meredith Mcbride Age/Sex: 32/F MR#: [id number] Page 1 of 1 Assessment & Plan Assessment & Plan (1) Family planning education, guidance, and counseling: Code(s): Z30.09 - Encounter for other general counseling and advice on contraception Category: Medical (2) Local recurrence of cancer of thyroid gland: Code(s): C73 - Malignant neoplasm of thyroid gland Category: Medical (3) Encounter to discuss test results: Code(s): Z71.2 - Person consulting for explanation of examination or test findings Category: Medical Plan pt is here referred from endocrinology to discuss CT results she had in evaluation of throid cancer treatment. i reviewed them w her. pt says she was told she had a fibroma on the left and she though that explained pain shes had on her left side for a while pt had third thyroid cancer rx in feb. please see scans. pt should have been appointed w corporate statistical financial analyst for this visit. i did review them w her / will have pt see dr Jaramillo for discussion of any followup necessary or recommended. Patient says she is here to follow-up on a scan that she had done that was ordered through endocrinology. She has been undergoing treatment for thyroid cancer and she had her last full treatment last February she had also been treated in 2020 in 2021. She had different scans that showed different things and she was sent to a doctor in [place] that recommended that she have of pelvic CT scan and that was done in August and the patient says she is here to discuss those results with me today. I reviewed the CT scan and I also reviewed others studies that have been done and also my previous visits with her to try to understand why she was appointed with me today. In reviewing the CT scan the patient says she was told she had a fibroma on the left side. And she said she was thinking that was why she always had pain on that side. In reviewing the CT scan there has a small 1.5 cm simple right ovarian cyst and there is not a mention of a fibroma other than a notation about the wall of the uterus. I reviewed this and several other studies that were in the system with her. Patient really should happen scheduled with Dr. Jaramillo gynecology for thorough review and consideration for whether not any further study or evaluation should be done and if so what would be the best methodology. Patient will be scheduled with Dr. Jaramillo. It also appears that her annual exam on November 08 but canceled and so that will be rescheduled as well. Coding Level of Care Code Est Pt Level 3 (25655) Diagnoses Family planning education, guidance, and counseling Z30.09 Local recurrence of cancer of thyroid gland C73 Encounter to discuss test results Z71.2
== END 2023-10-27 13:05 | disposition home or self-care (01) ==
PROVIDERS: PCP Physician Assistant; Visit Provider Advanced Practice Midwife
DX: Z30.09 Encounter for other general counseling and advice on contraception (principal); C73 Malignant neoplasm of thyroid gland; Z71.2 Person consulting for explanation of examination or test findings
CPT/HCPCS: 99213

== ENCOUNTER → 2023-10-27 11:24 | Outpatient (BNVA) | payer MEDICAID, SELFPAY | PROVIDERS: PCP Physician Assistant; Visit Provider Advanced Practice Midwife | DX: Z30.09 Encounter for other general counseling and advice on contraception (principal); Z71.2 Person consulting for explanation of examination or test findings; C73 Malignant neoplasm of thyroid gland | CPT/HCPCS: 99212 ==

== ENCOUNTER 2023-11-02 09:32 | Outpatient (REF) | payer MEDICAID, SELFPAY ==
[2023-11-03 05:44] LABS: CT PCR NOT DETECTED (Not Detect.); NG PCR NOT DETECTED (Not Detect.)
[2023-11-03 10:49] LABS: BV Int Neg Control Negative (Negative); BV Int Pos Control Positive (Positive)
== END 2023-11-02 09:33 | disposition home or self-care (01) ==
LOC: HO.LNP 09:32
PROVIDERS: PCP Physician Assistant; Visit Provider Advanced Practice Midwife
DX: Z20.2 Contact with and (suspected) exposure to infections with a predominantly sexual mode of transmission (principal); C73 Malignant neoplasm of thyroid gland; E55.9 Vitamin D deficiency, unspecified
CPT/HCPCS: 0353U; 87480; 87510; 87660; 99395

== ENCOUNTER 2023-11-02 09:32 | Outpatient (AMB) | payer MEDICAID, SELFPAY ==
--- NOTE | 2023-11-02 09:34 | MHC.OFFVIS ---
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 annual exam Regulatory Product Manager Required: Yes Regulatory Product Manager Language: Kyrgyz Information Interpreted: non-clinical & clinical Bottle Hop: Bottle Hop Present (Shona) Allergies No Known Allergies [No Known Allergies*] Allergy (Verified 11/02/23 09:37) Medication List - Last Reconciled 11/02/23 by Shirley Fernandez CNM cetirizine (Zyrtec) 10 mg PO DAILY PRN cholecalciferol (vitamin D3) 2,000 units PO DAILY fluconazole 150 mg PO Q3D 2 doses ibuprofen 400 mg PO Q6H PRN magnesium 250 mg PO DAILY multivitamin (Daily Multi-Vitamin tablet) 1 tab PO DAILY Tirosint (levothyroxine) 100 mcg PO DAILY NS Is last menstrual period known: Yes Last menstrual period: 10/09/23 Post menopausal: No PFSH Medical History Local recurrence of cancer of thyroid gland Acne History of thyroid cancer Hypothyroidism Thyroid cancer Vitamin D deficiency Thyroid nodule Surgical History Hx of total thyroidectomy Hx of knee surgery Hx of section Family History Father Vitamin D deficiency Mother Depression Hypertension Water retention Thyroid nodule Paternal Grandfather Colon cancer Social History Alcohol intake: never Patient Tobacco Use Status: Never used Tobacco Sexual orientation: Straight/Heterosexual Gender identity: Female Female Reproductive History Menstrual Age of Menarche: 13 Duration of menses: 6-7 days Date of last menstrual period: 10/09/23 control method: none Total pregnancies: 2 Full term: 2 Number of Living Children: 2 Date of last pap smear: 11/07/22 (negative) Physical Exam Vital Signs: Last Vital Signs BP 120/70 11/02/23 09:35 BMI result Body Mass Index 28.9 Const General: healthy appearing, comfortable, no acute distress, well developed and alert Nutritional Appearance: average body habitus Orientation/consciousness: patient oriented x3 Limitations: no limitations HEENT Other: Patient complains of intermittent swollen glands especially after she eats as well as lots of oral dryness interfering with chewing and swallowing food salivary glands to not feel enlarged at this particular moment to this provider thyroid gland also not appreciable by this provider. Head: Yes normocephalic Neck Neck: Yes normal visual inspection Thyroid: Thyroid normal Chest Chest palpation & inspection: normal inspection of the chest Breast/axilla inspection: normal inspection of the breasts and normal inspection of the axillae Breast/axilla palpation: normal palpation of the breasts and normal palpation of the axillae Resp Effort & Inspection: normal respiratory effort GI Inspection: Yes normal to inspection, No Abdominal wall edema and No distended Palpation (GI): Soft to palpation and nontender Other: Low transverse scar well healed no masses palpable patient nontender on exam though cites chronic pain on left side especially before her menses. Vagina pink moist with clear scant discharge cervix appears pink nulliparous smooth shiny mobile nontender adnexa nontender good tone with Kegel. General: Yes bladder normal to palpation External Female Exam: normal external appearance and normal appearance of the urethra Speculum Exam - Vagina: normal appearance of the vagina, normal palpation and normal vaginal discharge Speculum Exam - Cervix: normal appearance of the cervix, normal palpation and nontender Bimanual exam- vagina & uterus: normal bimanual exam, normal palpation, uterine size normal, bladder normal to palpation, consistency normal, normal palpation, uterine mobility normal, uterine shape normal, No Cervical tenderness present, non-tender and no cervical motion tenderness Bimanual Exam- Adnexa, other: normal adnexae, no masses, normal and No adnexal tenderness Neuro General: patient oriented x3 Results Reviewed Results Reviewed: vik: Meredith Mcbride Age/Sex: 32/F Attending: Talia Yao CNM : 1990 Submitted by: Talia Yao CNM Copies to: Lizeth Bernard MR #: [id number] Status: DEP REF Collected: 11/06/22 Location: [facility] Received: 11/07/22 Interpretation Satisfactory for evaluation. Negative for intraepithelial lesion or malignancy. HPV mRNA E6/E7: NOT DETECTED This assay detects E6/E7 viral messenger RNA (mRNA) from 14 high-risk HPV types (16, 18, 31, 33, 35, 39, 45, 51, 52, 56, 58, 59, 66, 68) HPV testing performed by [facility], [place], [place]. See reference laboratory pion of the EMR for entire report. Clinical Information LMP: 10/30/22 Previous PAP test: 2020, WNL Material Received ThinPrep-Cervical Copies To Talia Yao [address] Jackson [address] [place] [address] Lizeth Bernard [facility] [address] [place] [address] Electronically Signed By: HAJA Meadows (ASCP) 11/12/22 1514 The Pap Test is a screening procedure with the inherent possibility of both false negative and false positive results. Results should be interpreted in the context of historic and current clinical findings. Reliability of the Pap Test is enhanced by performing the test on a regular repetitive basis. Patient: Meredith Mcbride Age/Sex: 32/F MR#: [id number] Page 1 of 1 Assessment & Plan Assessment & Plan (1) Family planning education, guidance, and counseling: Code(s): Z30.09 - Encounter for other general counseling and advice on contraception Category: Medical (2) Local recurrence of cancer of thyroid gland: Code(s): C73 - Malignant neoplasm of thyroid gland Category: Medical (3) Encounter to discuss test results: Code(s): Z71.2 - Person consulting for explanation of examination or test findings Category: Medical (4) Encounter for annual routine gynecological examination: Code(s): Z01.419 - Encounter for gynecological examination (general) (routine) without abnormal findings Category: Medical (5) Vitamin D deficiency: Code(s): E55.9 - Vitamin D deficiency, unspecified Category: Medical Plan Patient still needs to be appointed to see Dr. Jaramillo to discuss all potential screening for any issues pertaining to her history of thyroid cancer please see previous notes and referrals or notes from Dr. Matson. I reviewed all of her symptoms I suggest she is speak to her primary care pediatrician about all of her salivary gland concerns as well and swallowing and let him know that her primary care provider has ordered a CT scan for her on December 07. She will be getting her blood work tomorrow for her visit with Dr. Matson on the . Please see the previous visit where we reviewed all of the scans. That visit should happen scheduled with Dr. Jaramillo in that is what she needs at this time. I will see her in 1 year she does not need anything for control she is planning on complete abstinence at this time. She was not concerned about STIs but while doing needs them she did except testing for gonorrhea chlamydia trichomoniasis Radha and Gardnerella. I did review that if she has new symptoms whatsoever she does not need treatment if Radha Gardnerella show up. She is off Thursday for tenriism and Thursday and Thursday for appointments and everything else in life. She is going to go home and do her exercise with the windows open and let in the fresh air. Orders: Orders Bacterial Vaginosis Panel Today Z20.2 - Contact with and (suspected) exposure to infections with a predominantly sexual mode of transmission CT NG by PCR Today Z20.2 - Contact with and (suspected) exposure to infections with a predominantly sexual mode of transmission Coding Level of Care Code Est Pt Prev Care 18-39y([id number]) Diagnoses Family planning education, guidance, and counseling Z30.09 Local recurrence of cancer of thyroid gland C73 Encounter to discuss test results Z71.2 Encounter for annual routine gynecological examination Z01.419 Vitamin D deficiency E55.9
[2023-11-02 09:35] VITALS: BP 120/70; BMI 28.9
== END 2023-11-02 11:14 | disposition home or self-care (01) ==
LOC: HO.HWSM 09:32
PROVIDERS: PCP Physician Assistant; Visit Provider Advanced Practice Midwife
DX: Z30.09 Encounter for other general counseling and advice on contraception (principal); C73 Malignant neoplasm of thyroid gland; Z71.2 Person consulting for explanation of examination or test findings; Z01.419 Encounter for gynecological examination (general) (routine) without abnormal findings; E55.9 Vitamin D deficiency, unspecified
CPT/HCPCS: 99395

== ENCOUNTER 2023-11-03 07:49 | Outpatient (REF) | payer MEDICAID, SELFPAY ==
[2023-11-03 09:10] LABS: Free T4 (Free Thyroxine) 1.23 ng/dL (0.71-1.85); Thyroid Stimulating Hormone 0.14 uIU/mL (0.32-4.0)
== END 2023-11-03 07:50 | disposition home or self-care (01) ==
LOC: HO.LAB 07:49
PROVIDERS: PCP Registered Nurse; Visit Provider Internal Medicine Endocrinology, Diabetes & Metabolism
DX: C73 Malignant neoplasm of thyroid gland (principal)
CPT/HCPCS: 36415; 84439; 84443

== ENCOUNTER 2023-11-18 08:41 | Outpatient (AMB) | payer MEDICAID, SELFPAY ==
[2023-11-18 08:44] VITALS: BP 122/60; PULSE 85; BMI 29.5
--- NOTE | 2023-11-18 08:44 | A.OFFVIS_ITS ---
Vital Signs 11/18/23 08:44 Height 5 ft Weight 151 lb 3.794 oz BMI 29.5 BP 122/60 Blood Pressure Location Lt brachial Position Sitting Pulse 85 Pulse Source Pulse Oximeter Intake Visit Reasons: Thyroid cancer-confirmed Intake Note: Patient present today for thyroid cancer follow up visit. Rn Clinical Coordinator Required: Yes Rn Clinical Coordinator Language: Price Accuracy Supervisor Name: [facility] medical staff Information Interpreted: non-clinical & clinical Accompanied by: Self / Same As Patient Allergies No Known Allergies [No Known Allergies*] Allergy (Verified 11/18/23 08:47) Medication List - Last Reconciled 11/18/23 by Phong Matson MD cetirizine (Zyrtec) 10 mg PO DAILY PRN cholecalciferol (vitamin D3) 2,000 units PO DAILY fluconazole 150 mg PO Q3D 2 doses ibuprofen 400 mg PO Q6H PRN magnesium 250 mg PO DAILY multivitamin (Daily Multi-Vitamin tablet) 1 tab PO DAILY Tirosint (levothyroxine) 100 mcg PO DAILY NS HPI Comments Details: 33 YO F with no significant PMHx who is seen in F/U for thyroid cancer.. The patient last saw Dr. Albrecht on 01/22/2023 Was initially diagnosed with multinodular thyroid in 2019 with thyroid US revealing a large RMP nodule measuring 4.1 cm. This was biopsied by IR 03/07/2019 with benign cytology ([place] Category II). She was referred to Dr. Clint Cooper and underwent a R hemithyroidectomy due to compressive symptoms. 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 There was no angioinvasion, no lymphatic invasion, no perneural invasion, no extrathyroidal extension, and negative margins. No lymph nodes were excised. This was staged as pT2pNx. She underwent a completion thyroidectomy in November 06, 2020 with official surgical path benign. She was started on Tirosint 112 mcg PO daily postoperative, and reports good c ompliance with this. She underwent thyrogen stimulated remnant ablation on 05/01/2021 with 30.2 mCi of I131. TSH at that time was 76.3, but unfortunately no TG or TG antibodies were drawn at that time. WBS completed 05/10/2021 revealed intense foci of uptake within the neck, but otherwise only physiologic uptake. She had labs repeated 08/22/2021 with TSH 0.11, TG <0.1 and negative TG antibod ies. Labs 11/26/2021 with TSH 0.29, TG <0.1 and TGAB <1. She had an US of the neck which revealed no abnormal appearing lymph nodes at that time. She then underwent a repeat WBS 10/24/2022 via thyroid hormone withdrawal. 10/16/2022 TSH 33.95, TG 0.9 and TGAB <1. WBS revealed increased radiotracer uptake in the upper neck in the region of the right thyroidectomy bed and along the thyroglossal duct. Uptake was otherwise physiologic. She underwent an US head and neck which did reveal multiple abnormal and enlarged lymph nodes bilaterally. I repeated her US myself and noted an abnormal appearing 0.7 cm lymph node in the right level 1B. No FNA was completed based on size. Patient presents today to discuss high dose I131 treatment. Whole Body Scan: 10/24/2022 Increased tracer radioiodine uptake in the upper neck in the region of the right thyroidectomy bed and along the thyroglossal duct. 48 hours uptake in the neck was 0.2%. Impression: Residual radioiodine activity within the neck suggestive of thyroid tissue or local disease. No evidence for iodine avid distant metastatic disease. US Head and Neck: 10/31/2022 THYROID BED: Prior thyroidectomy. No residual thyroid tissue demonstrated in the thyroid bed. No cystic or solid nodules demonstrated in the thyroid bed. There is a new midline level 1A lymph node that measures 6 x 3 x 7 mm in sagittal AP and transverse dimension. This is normal in size and demonstrate normal ultrasound morphology and flow. There are 7 lymph nodes identified in the right neck. There is a level 1A lymph node that is normal appearing and stable. There is a newly appreciated 1B lymph node that measures 7 x 5 x 6 mm and is normal in size. This demonstrates abnormal morphology with absent fatty hilum and round shape. There is a level 2 lymph node that has normal ultrasound morphology and is normal in size but slightly increased in size compared to prior prior exam. There is a new level 3 lymph node that is upper normal in size measuring 1.6 x 0.3 x 0.9 cm and has normal ultrasound morphology. There is a newly appreciated right level 3 lymph node that is upper normal in size measuring 1.4 x 0.3 x 0.8 cm. This has abnormal morphology with absent fatty hilum. There is a newly appreciated right level 4 lymph node that is upper normal in size measuring 1.1 x 0.2 x 0.9 cm and has normal ultrasound morphology. There is a newly appreciated slightly enlarged right level 5A lymph node that measures 1.4 x 0.3 x 1.2 cm and has normal ultrasound morphology. There are 2 newly appreciated left cervical lymph nodes. There is a level 1 lymph node that is upper normal in size measuring 0.8 x 0.7 x 1.5 cm and has normal ultrasound morphology. There is an upper normal level 3 lymph node that measures 1.6 x 0.2 x 0.7 cm and has abnormal ultrasound morphology with absent fatty hilum. There are 2 adjacent level 5A normal-appearing lymph nodes that was measured as one lymph node on prior exam. These are normal in size and have normal ultrasound morphology. Labs: Laboratory Tests 11/12/22 12/16/22 15:09 08:56 TSH 0.04 L Thyroglobulin 0.1 H Thyroglobulin Antibody <1 Currently on Tirosint 100 mcg . Saw who suggested CT of the pelvis which did not show an metastatic disease . She complains of tenderness and lack of saliva scribing which seems like a sialadenitis PFSH Medical History Local recurrence of cancer of thyroid gland Acne History of thyroid cancer Hypothyroidism Thyroid cancer Vitamin D deficiency Thyroid nodule Surgical History Hx of total thyroidectomy Hx of knee surgery Hx of section Family History Father Vitamin D deficiency Mother Depression Hypertension Water retention Thyroid nodule Paternal Grandfather Colon cancer Social History Alcohol intake: never Patient Tobacco Use Status: Never used Tobacco Sexual orientation: Straight/Heterosexual Gender identity: Female Female Reproductive History Menstrual Age of Menarche: 13 Physical Exam Vital Signs: Last Vital Signs Pulse 85 11/18/23 08:44 BP 122/60 11/18/23 08:44 BMI result Body Mass Index 29.5 Const Other: Healed scar status post thyroidectomy. 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 There was no angioinvasion, no lymphatic invasion, no perneural invasion, no extrathyroidal extension, and negative margins. No lymph nodes were excised. This was staged as pT2pNx. She underwent treatment with low-dose radioactive iodine 30 mCi and a 2nd dose recently. 150 mCi. She is currently on Tirosint 100 mcg. She appears to be clinically euthyroid but TSH is suppressed. Recent total body scan done with Thyrogen show residual uptake in the neck and right hemipelvis. Somewhat reassuring have been the the thyroglobulin levels have been low and stable and neck ultrasound has been negative. She also had a CT of the pelvis which was unremarkable. The plan is to decrease the Tirosint 88 mcg and recheck TSH and free T4 in 6 weeks time. Goal is to keep TSH in normal range <2.5 she has appointment with ENT in the next several months to have the potential sialadenitis evaluated. Orders: Orders Free T4 (Free Thyroxine) 6 Weeks C73 - Malignant neoplasm of thyroid gland Thyroid Stimulating Hormone 6 Weeks C73 - Malignant neoplasm of thyroid gland Medications: New Tirosint (levothyroxine) 88 mcg PO DAILY 30 caps 5RF NS Discontinued Tirosint (levothyroxine) Discontinued Reason: Doctor's Order 100 mcg PO DAILY 30 caps 5RF NS Coding Level of Care Code Est Pt Level 3 (00662) Diagnoses Thyroid cancer C73
== END 2023-11-18 09:11 | disposition home or self-care (01) ==
PROVIDERS: PCP Registered Nurse; Referring Provider Registered Nurse; Visit Provider Internal Medicine Endocrinology, Diabetes & Metabolism
DX: C73 Malignant neoplasm of thyroid gland (principal)
CPT/HCPCS: 99213

== ENCOUNTER → 2023-11-18 08:41 | Outpatient (BNVA) | payer MEDICAID, SELFPAY | PROVIDERS: PCP Registered Nurse; Visit Provider Internal Medicine Endocrinology, Diabetes & Metabolism | DX: C73 Malignant neoplasm of thyroid gland (principal) | CPT/HCPCS: 99212 ==

== ENCOUNTER 2023-12-08 09:25 | Outpatient (REF) | payer MEDICAID, SELFPAY ==
--- NOTE | ~2023-12-08 | CT_ITS ---
EXAMINATION: CT SOFT TISSUE NECK WITH CONTRAST CLINICAL INFORMATION: Malignant tumor of the thyroid. COMPARISON: Soft tissue neck ultrasound 12/04/2022. TECHNIQUE: Following the intravenous administration of 60 mL of Omnipaque 350 intravenous contrast, helical imaging was performed in the axial plane with generation of coronal and sagittal reformatted images. This CT examination was performed using dose optimization techniques as appropriate, variously including the following: *Automated exposure control *Adjustment of mA and/or kV according to patient size (this includes techniques or standardized protocols for targeted exams where dose is matched to indication/reason for exam; i.e. extremities or head) *Use of iterative reconstruction technique DLP: 462 mGy-cm FINDINGS: There are chronic postoperative changes of a thyroid resection. The remainder of the visualized visceral soft tissues are unremarkable. There is no abnormal mass or nodular enhancement at the thyroidectomy bed. No pathologically enlarged cervical lymph nodes. No mediastinal or axillary adenopathy is visualized within the [id number] of this examination. Pharyngeal mucosal spaces are symmetric. Parapharyngeal and retromaxillary fat is preserved. Facility Maintenance Technician spaces are symmetric. Parotid and submandibular glands are normal. The tongue base and epiglottis are normal. Preepiglottic fat is preserved. Glottic and subglottic airways are patent. Lung apices are clear. Aortic arch apex is normal. Cervical carotid and vertebral arteries are patent. Internal jugular veins fill symmetrically. No acute osseous finding. Specific no worrisome lytic or blastic osseous lesion. No spinal canal compromise. The skull base is intact. No mastoid or middle ear effusion. No active paranasal sinus disease. Limited visualization of intracranial anatomy reveals no abnormal finding. CT/CT soft tissue neck w IV con IMPRESSION: There are chronic postoperative changes of a thyroid resection. Otherwise unremarkable examination. No abnormal mass or nodular enhancement at the thyroidectomy bed. No pathologically enlarged cervical lymph nodes.
[2023-12-08] MEDS: iohexoL 350 MG/ML 100 ML INFUS..BTL IV (10:36)
== END 2023-12-08 09:26 | disposition home or self-care (01) ==
LOC: HO.CT 09:25
PROVIDERS: PCP Registered Nurse; Visit Provider Registered Nurse
DX: K11.20 Sialoadenitis, unspecified (principal); C73 Malignant neoplasm of thyroid gland
CPT/HCPCS: 70491; Q9967

== ENCOUNTER 2024-01-11 08:54 | Outpatient (REF) | payer MEDICAID, SELFPAY ==
[2024-01-11 10:27] LABS: Free T4 (Free Thyroxine) 1.03 ng/dL (0.71-1.85)
== END 2024-01-11 08:55 | disposition home or self-care (01) ==
LOC: HO.LAB 08:54
PROVIDERS: PCP Registered Nurse; Visit Provider Internal Medicine Endocrinology, Diabetes & Metabolism
DX: C73 Malignant neoplasm of thyroid gland (principal)
CPT/HCPCS: 36415; 84439; 84443

== ENCOUNTER 2024-01-18 09:56 | Outpatient (AMB) | payer MEDICAID, SELFPAY ==
--- NOTE | 2024-01-18 09:57 | A.OFFVIS_ITS ---
Vital Signs 01/18/24 09:58 Height 5 ft Weight 150 lb 5.684 oz BMI 29.4 BP 104/56 L Blood Pressure Location Lt brachial Position Sitting Pulse 84 Pulse Source Pulse Oximeter Intake Visit Reasons: Thyroid med adjustment-confirmed Intake Note: Patient present today for a thyroid medication adjustment follow up visit. Field Crop Technical Officer Required: Yes Field Crop Technical Officer Language: Associate Professor Of Biblical Studies Services: Field Crop Technical Officer Offered & Declined Information Interpreted: non-clinical & clinical Accompanied by: Self / Same As Patient Allergies No Known Allergies [No Known Allergies*] Allergy (Verified 01/18/24 10:01) HPI Comments Details: 33 YO F with no significant PMHx who is seen in F/U for thyroid cancer.. The patient last saw Dr. Albrecht on 01/22/2023 Was initially diagnosed with multinodular thyroid in 2019 with thyroid US revealing a large RMP nodule measuring 4.1 cm. This was biopsied by IR 03/07/2019 with benign cytology ([place] Category II). She was referred to Dr. Clint Cooper and underwent a R hemithyroidectomy due to compressive symptoms. 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 There was no angioinvasion, no lymphatic invasion, no perneural invasion, no extrathyroidal extension, and negative margins. No lymph nodes were excised. This was staged as pT2pNx. She underwent a completion thyroidectomy in November 06, 2020 with official surgical path benign. She was started on Tirosint 112 mcg PO daily postoperative, and reports good compliance with this. She underwent thyrogen stimulated remnant ablation on 05/01/2021 with 30.2 mCi of I131. TSH at that time was 76.3, but unfortunately no TG or TG antibodies were drawn at that time. WBS completed 05/10/2021 revealed intense foci of uptake within the neck, but otherwise only physiologic uptake. She had labs repeated 08/22/2021 with TSH 0.11, TG <0.1 and negative TG antibodies. Labs 11/26/2021 with TSH 0.29, TG <0.1 and TGAB <1. She had an US of the neck which revealed no abnormal appearing lymph nodes at that time. She then underwent a repeat WBS 10/24/2022 via thyroid hormone withdrawal. 10/16/2022 TSH 33.95, TG 0.9 and TGAB <1. WBS revealed increased radiotracer uptake in the upper neck in the region of the right thyroidectomy bed and along the thyroglossal duct. Uptake was otherwise physiologic. She underwent an US head and neck which did reveal multiple abnormal and enla rged lymph nodes bilaterally. I repeated her US myself and noted an abnormal appearing 0.7 cm lymph node in the right level 1B. No FNA was completed based on size. Patient presents today to discuss high dose I131 treatment. Whole Body Scan: 10/24/2022 Increased tracer radioiodine uptake in the upper neck in the region of the right thyroidectomy bed and along the thyroglossal duct. 48 hours uptake in the neck was 0.2%. Impression: Residual radioiodine activity within the neck suggestive of thyroid tissue or local disease. No evidence for iodine avid distant metastatic disease. US Head and Neck: 10/31/2022 THYROID BED: Prior thyroidectomy. No residual thyroid tissue demonstrated in the thyroid bed. No cystic or solid nodules demonstrated in the thyroid bed. There is a new midline level 1A lymph node that measures 6 x 3 x 7 mm in sagittal AP and transverse dimension. This is normal in size and demonstrate normal ultrasound morphology and flow. There are 7 lymph nodes identified in the right neck. There is a level 1A lymph node that is normal appearing and stable. There is a newly appreciated 1B lymph node that measures 7 x 5 x 6 mm and is normal in size. This demonstrates abnormal morphology with absent fatty hilum and round shape. There is a level 2 lymph node that has normal ultrasound morphology and is normal in size but slightly increased in size compared to prior prior exam. There is a new level 3 lymph node that is upper normal in size measuring 1.6 x 0.3 x 0.9 cm and has normal ultrasound morphology. There is a newly appreciated right level 3 lymph node that is upper normal in size measuring 1.4 x 0.3 x 0.8 cm. This has abnormal morphology with absent fatty hilum. There is a newly appreciated right level 4 lymph node that is upper normal in size measuring 1.1 x 0.2 x 0.9 cm and has normal ultrasound morphology. There is a newly appreciated slightly enlarged right level 5A lymph node that measures 1.4 x 0.3 x 1.2 cm and has normal ultrasound morphology. There are 2 newly appreciated left cervical lymph nodes. There is a level 1 lymph node that is upper normal in size measuring 0.8 x 0.7 x 1.5 cm and has normal ultrasound morphology. There is an upper normal level 3 lymph node that measures 1.6 x 0.2 x 0.7 cm and has abnormal ultrasound morphology with absent fatty hilum. There are 2 adjacent level 5A normal-appearing lymph nodes that was measured as one lymph node on prior exam. These are normal in size and have normal ultrasound morphology. Labs: Laboratory Tests 11/12/22 12/16/22 15:09 08:56 TSH 0.04 L Thyroglobulin 0.1 H Thyroglobulin Antibody <1 Currently on Tirosint 88 mcg . Is currently ? 8 wks PFSH Medical History Local recurrence of cancer of thyroid gland Acne History of thyroid cancer Hypothyroidism Thyroid cancer Vitamin D deficiency Thyroid nodule Surgical History Hx of total thyroidectomy Hx of knee surgery Hx of section Family History Father Vitamin D deficiency Mother Depression Hypertension Water retention Thyroid nodule Paternal Grandfather Colon cancer Social History Alcohol intake: never Patient Tobacco Use Status: Never used Tobacco Sexual orientation: Straight/Heterosexual Gender identity: Female Female Reproductive History Menstrual Age of Menarche: 13 Physical Exam Vital Signs: Last Vital Signs Pulse 84 01/18/24 09:58 BP 104/56 L 01/18/24 09:58 BMI result Body Mass Index 29.4 Const Other: Healed scar status post thyroidectomy. 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 There was no angioinvasion, no lymphatic invasion, no perneural invasion, no extrathyroidal extension, and negative margins. No lymph nodes were excised. This was staged as pT2pNx. She underwent treatment with low-dose radioactive iodine 30 mCi and a 2nd dose recently. 150 mCi. She is currently on Tirosint 100 mcg. She appears to be clinically euthyroid but TSH is suppressed. Recent total body scan done with Thyrogen show residual uptake in the neck and right hemipelvis. Somewhat reassuring have been the the thyroglobulin levels have been low and stable and neck ultrasound has been negative. She also had a CT of the pelvis which was unremarkable.Is currrently wks . Requirement for levothyroxine was decreasing prior to . Today, she appears to be clinically euthyroid The plan is to recheck TSH and free T4 today and adjust levothyroxine accordingly. If TSH is elevated, would increase levothyroxine dose by 20%. Goal is to keep TSH in normal range <2.5 and will need to check TSH free T4 the beginning of each trimester adjust levothyroxine accordingly Orders: Orders Free T4 (Free Thyroxine) Today C73 - Malignant neoplasm of thyroid gland Free T4 (Free Thyroxine) 4 Weeks C73 - Malignant neoplasm of thyroid gland Thyroid Stimulating Hormone 4 Weeks C73 - Malignant neoplasm of thyroid gland Thyroid Stimulating Hormone Today C73 - Malignant neoplasm of thyroid gland Coding Level of Care Code Est Pt Level 3 (39355) Diagnoses Thyroid cancer C73
[2024-01-18 09:58] VITALS: BP 104/56; PULSE 84; BMI 29.4
== END 2024-01-18 10:30 | disposition home or self-care (01) ==
PROVIDERS: PCP Registered Nurse; Referring Provider Registered Nurse; Visit Provider Internal Medicine Endocrinology, Diabetes & Metabolism
DX: C73 Malignant neoplasm of thyroid gland (principal)
CPT/HCPCS: 99213

== ENCOUNTER → 2024-01-18 09:56 | Outpatient (BNVA) | payer MEDICAID, SELFPAY | PROVIDERS: PCP Registered Nurse; Visit Provider Internal Medicine Endocrinology, Diabetes & Metabolism ==

== ENCOUNTER 2024-01-18 10:24 | Outpatient (REF) | payer MEDICAID, SELFPAY ==
[2024-01-18 14:05] LABS: Free T4 (Free Thyroxine) 0.97 ng/dL (0.71-1.85); Thyroid Stimulating Hormone 2.58 uIU/mL (0.32-4.0)
== END 2024-01-18 10:25 | disposition home or self-care (01) ==
LOC: HO.10HDL 10:24
PROVIDERS: Visit Provider Internal Medicine Endocrinology, Diabetes & Metabolism
DX: C73 Malignant neoplasm of thyroid gland (principal)
CPT/HCPCS: 36415; 84439; 84443; 99212

== ENCOUNTER 2024-02-15 10:04 | Outpatient (REF) | payer MEDICAID, SELFPAY ==
[2024-02-15 11:42] LABS: Free T4 (Free Thyroxine) 1.03 ng/dL (0.71-1.85); Thyroid Stimulating Hormone 4.09 uIU/mL (0.32-4.0)
== END 2024-02-15 10:05 | disposition home or self-care (01) ==
LOC: HO.LAB 10:04
PROVIDERS: PCP Registered Nurse; Visit Provider Internal Medicine Endocrinology, Diabetes & Metabolism
DX: C73 Malignant neoplasm of thyroid gland (principal)
CPT/HCPCS: 36415; 84439; 84443

== ENCOUNTER 2024-02-16 09:54 | Outpatient (AMB) | payer MEDICAID, SELFPAY ==
[2024-02-16 10:02] VITALS: BP 116/70; PULSE 86; BMI 29.7
--- NOTE | 2024-02-16 10:02 | A.OFFVIS_ITS ---
Vital Signs 02/16/24 10:02 Height 5 ft Weight 152 lb 1.903 oz BMI 29.7 BP 116/70 Blood Pressure Location Rt brachial Position Sitting Pulse 86 Pulse Source Pulse Oximeter Intake Visit Reasons: f/u hypothyroidism /thyroid cancer-confirmed Intake Note: Patient present today for Hypothyroidism/Thyroid cancer follow up visit, 10 weeks gestation of : Sharepoint Manager Required: Yes Sharepoint Manager Language: Building Construction Inspector Name: Melvin Accompanied by: Self / Same As Patient Allergies No Known Allergies [No Known Allergies*] Allergy (Verified 02/16/24 10:05) HPI Comments Details: 33 YO F with no significant PMHx who is seen in F/U for thyroid cancer.. Was initially diagnosed with multinodular thyroid in 2019 with thyroid US revealing a large RMP nodule measuring 4.1 cm. This was biopsied by IR 03/07/2019 with benign cytology ([place] Category II). She was referred to Dr. Clint Cooper and underwent a R hemithyroidectomy due to compressive symptoms. 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 There was no angioinvasion, no lymphatic invasion, no perneural invasion, no extrathyroidal extension, and negative margins. No lymph nodes were excised. This was staged as pT2pNx. She underwent a completion thyroidectomy in November 06, 2020 with official surgical path benign. She was started on Tirosint 112 mcg PO daily postoperative, and reports good compliance with this. She underwent thyrogen stimulated remnant ablation on 05/01/2021 with 30.2 mCi of I131. TSH at that time was 76.3, but unfortunately no TG or TG antibodies were drawn at that time. WBS completed 05/10/2021 revealed intense foci of uptake within the neck, but otherwise only physiologic uptake. She had labs repeated 08/22/2021 with TSH 0.11, TG <0.1 and negative TG antibodies. Labs 11/26/2021 with TSH 0.29, TG <0.1 and TGAB <1. She had an US of the neck which revealed no abnormal appearing lymph nodes at that time. She then underwent a repeat WBS 10/24/2022 via thyroid hormone withdrawal. 10/16/2022 TSH 33.95, TG 0.9 and TGAB <1. WBS revealed increased radiotracer uptake in the upper neck in the region of the right thyroidectomy bed and along the thyroglossal duct. Uptake was otherwise physiologic. She underwent an US head and neck which did reveal multiple abnormal and enlarged lymph nodes bilaterally. I repeated her US myself and noted an abnormal appearing 0.7 cm lymph node in the right level 1B. No FNA was completed based on size. Patient presents today to discuss high dose I131 treatment. Whole Body Scan: 10/24/2022 Increased tracer radioiodine uptake in the upper neck in the region of the right thyroidectomy bed and along the thyroglossal duct. 48 hours uptake in the neck was 0.2%. Impression: Residual radioiodine activity within the neck suggestive of thyroid tissue or local disease. No evidence for iodine avid distant metastatic disease. US Head and Neck: 10/31/2022 THYROID BED: Prior thyroidectomy. No residual thyroid tissue demonstrated in the thyroid bed. No cystic or solid nodules demonstrated in the thyroid bed. There is a new midline level 1A lymph node that measures 6 x 3 x 7 mm in sagittal AP and transverse dimension. This is normal in size and demonstrate normal ultrasound morphology and flow. There are 7 lymph nodes identified in the right neck. There is a level 1A lymph node that is normal appearing and stable. There is a newly appreciated 1B lymph node that measures 7 x 5 x 6 mm and is normal in size. This demonstrates abnormal morphology with absent fatty hilum and round shape. There is a level 2 lymph node that has normal ultrasound morphology and is normal in size but slightly increased in size compared to prior prior exam. There is a new level 3 lymph node that is upper normal in size measuring 1.6 x 0.3 x 0.9 cm and has normal ultrasound morphology. There is a newly appreciated right level 3 lymph node that is upper normal in size measuring 1.4 x 0.3 x 0.8 cm. This has abnormal morphology with absent fatty hilum. There is a newly appreciated right level 4 lymph node that is upper normal in size measuring 1.1 x 0.2 x 0.9 cm and has normal ultrasound morphology. There is a newly appreciated slightly enlarged right level 5A lymph node that measures 1.4 x 0.3 x 1.2 cm and has normal ultrasound morphology. There are 2 newly appreciated left cervical lymph nodes. There is a level 1 lymph node that is upper normal in size measuring 0.8 x 0.7 x 1.5 cm and has normal ultrasound morphology. There is an upper normal level 3 lymph node that measures 1.6 x 0.2 x 0.7 cm and has abnormal ultrasound morphology with absent fatty hilum. There are 2 adjacent level 5A normal-appearing lymph nodes that was measured as one lymph node on prior exam. These are normal in size and have normal ultrasound morphology. Labs: Laboratory Tests 11/12/22 12/16/22 15:09 08:56 TSH 0.04 L Thyroglobulin 0.1 H Thyroglobulin Antibody <1 Currently on Tirosint 100 mcg . Is currently 11 wks [facility] Medical History Local recurrence of cancer of thyroid gland Acne History of thyroid cancer Hypothyroidism Thyroid cancer Vitamin D deficiency Thyroid nodule Surgical History Hx of total thyroidectomy Hx of knee surgery Hx of section Family History Father Vitamin D deficiency Mother Depression Hypertension Water retention Thyroid nodule Paternal Grandfather Colon cancer Social History Alcohol intake: never Patient Tobacco Use Status: Never used Tobacco Sexual orientation: Straight/Heterosexual Gender identity: Female Female Reproductive History Menstrual Age of Menarche: 13 Physical Exam Vital Signs: Last Vital Signs Pulse 86 02/16/24 10:02 BP 116/70 02/16/24 10:02 BMI result Body Mass Index 29.7 Assessment & Plan Assessment & Plan (1) Thyroid cancer: Code(s): C73 - Malignant neoplasm of thyroid gland Category: Medical Plan: This is a 33-year-old female with a history of minimally invasive follicular cancer .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 There was no angioinvasion, no lymphatic invasion, no perneural invasion, no extrathyroidal extension, and negative margins. No lymph nodes were excised. This was staged as pT2pNx. She underwent treatment with low-dose radioactive iodine 30 mCi and a 2nd dose recently. 150 mCi. She is currently on Tirosint 100 mcg. She appears to be clinically euthyroid but TSH is suppressed. Recent total body scan done with Thyrogen show residual uptake in the neck and right hemipelvis. Somewhat reassuring have been the the thyroglobulin levels have been low and stable and neck ultrasound has been negative. She also had a CT of the pelvis which was unremarkable.Is currrently wks . Requirement for levothyroxine was de creasing prior to . Today, she appears to be clinically euthyroid The plan is to increase the Tirosint to 125 ug (will change to generic levothyroxine as was tolerated well before) and recheck TSH and free T4 in 4 weeks time keeping TSH <2.5 Orders: Orders Free T4 (Free Thyroxine) 4 Weeks C73 - Malignant neoplasm of thyroid gland Thyroid Stimulating Hormone 4 Weeks C73 - Malignant neoplasm of thyroid gland Medications: New levothyroxine 125 mcg PO DAILY 30 tabs 4RF Discontinued Tirosint (levothyroxine) Discontinued Reason: Doctor's Order 125 mcg PO DAILY 30 caps 5RF NS Coding Level of Care Code Est Pt Level 3 (65582) Diagnoses Thyroid cancer C73
== END 2024-02-16 10:23 | disposition home or self-care (01) ==
PROVIDERS: PCP Registered Nurse; Referring Provider Registered Nurse; Visit Provider Internal Medicine Endocrinology, Diabetes & Metabolism
DX: C73 Malignant neoplasm of thyroid gland (principal)
CPT/HCPCS: 99213

== ENCOUNTER → 2024-02-16 09:54 | Outpatient (BNVA) | payer MEDICAID, SELFPAY | PROVIDERS: PCP Registered Nurse; Visit Provider Internal Medicine Endocrinology, Diabetes & Metabolism | DX: C73 Malignant neoplasm of thyroid gland (principal) | CPT/HCPCS: 99212 ==

== ENCOUNTER 2024-03-21 09:49 | Outpatient (REF) | payer MEDICAID, SELFPAY ==
[2024-03-21 11:38] LABS: Free T4 (Free Thyroxine) 1.19 ng/dL (0.71-1.85); Thyroid Stimulating Hormone 1.88 uIU/mL (0.32-4.0)
== END 2024-03-21 09:50 | disposition home or self-care (01) ==
LOC: HO.10HDL 09:49
PROVIDERS: Visit Provider Internal Medicine Endocrinology, Diabetes & Metabolism
DX: C73 Malignant neoplasm of thyroid gland (principal)
CPT/HCPCS: 36415; 84439; 84443

== ENCOUNTER 2024-04-12 09:29 | Outpatient (AMB) | payer MEDICAID, SELFPAY ==
--- NOTE | 2024-04-12 09:40 | A.OFFVIS_ITS ---
Vital Signs 04/12/24 09:42 Height 5 ft Weight 157 lb 13.616 oz BMI 30.8 BP 104/68 Blood Pressure Location Lt brachial Position Sitting Pulse 84 Pulse Source Pulse Oximeter Intake Visit Reasons: f/u hypothyroidism /thyroid cancer-conf Intake Note: Patient present today for Hypothyroidism and thyroid cancer follow up visit. Inspector Process Required: Yes Inspector Process Language: Computer Artist Services: Inspector Process Present Inspector Process Name: Mikaela Information Interpreted: non-clinical & clinical Accompanied by: Self / Same As Patient Allergies No Known Allergies [No Known Allergies*] Allergy (Verified 04/12/24 09:48) Medication List - Last Reconciled 04/12/24 by Phong Matson MD cetirizine (Zyrtec) 10 mg PO DAILY PRN cholecalciferol (vitamin D3) 2,000 units PO DAILY doxylamine succinate (Nighttime Sleep-Aid (doxylamine)) 25 mg PO BEDTIME PRN fluconazole 150 mg PO Q3D 2 doses ibuprofen 400 mg PO Q6H PRN levothyroxine 125 mcg PO DAILY magnesium 250 mg PO DAILY multivitamin (Daily Multi-Vitamin tablet) 1 tab PO DAILY no.167-folic acid-dha 400 mcg- 25 mg (One-A-Day ) tabs PO HPI Comments Details: 33 YO F with no significant PMHx who is seen in F/U for thyroid cancer.. Was initially diagnosed with multinodular thyroid in 2018 with thyroid US revealing a large RMP nodule measuring 4.1 cm. This was biopsied by IR 03/07/2019 with benign cytology ([place] Category II). She was referred to Dr. Clint Cooper and underwent a R hemithyroidectomy due to compressive symptoms. 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 There was no angioinvasion, no lymphatic invasion, no perneural invasion, no extrathyroidal extension, and negative margins. No lymph nodes were excised. This was staged as pT2pNx. She underwent a completion thyroidectomy in November 06, 2020 with official surgical path benign. She was started on Tirosint 112 mcg PO daily postoperative, and reports good compliance with this. She underwent thyrogen stimulated remnant ablation on 05/01/2021 with 30.2 mCi of I131. TSH at that time was 76.3, but unfortunately no TG or TG antibodies were drawn at that time. WBS completed 05/10/2021 revealed intense foci of uptake within the neck, but otherwise only physiologic uptake. She had labs repeated 08/22/2021 with TSH 0.11, TG <0.1 and negative TG antibodies. Labs 11/26/2021 with TSH 0.29, TG <0.1 and TGAB <1. She had an US of the neck which revealed no abnormal appearing lymph nodes at that time. She then underwent a repeat WBS 10/24/2022 via thyroid hormone withdrawal. 10/16/2022 TSH 33.95, TG 0.9 and TGAB <1. WBS revealed increased radiotracer uptake in the upper neck in the region of the right thyroidectomy bed and along the thyroglossal duct. Uptake was otherwise physiologic. She underwent an US head and neck which did reveal multiple abnormal and enlarged lymph nodes bilaterally. I repeated her US myself and noted an abnormal appearing 0.7 cm lymph node in the right level 1B. No FNA was completed based on size. Patient presents today to discuss high dose I131 treatment. Whole Body Scan: 10/24/2022 Increased tracer radioiodine uptake in the upper neck in the region of the right thyroidectomy bed and along the thyroglossal duct. 48 hours uptake in the neck was 0.2%. Impression: Residual radioiodine activity within the neck suggestive of thyroid tissue or local disease. No evidence for iodine avid distant metastatic disease. US Head and Neck: 10/31/2022 THYROID BED: Prior thyroidectomy. No residual thyroid tissue demonstrated in the thyroid bed. No cystic or solid nodules demonstrated in the thyroid bed. There is a new midline level 1A lymph node that measures 6 x 3 x 7 mm in sagittal AP and transverse dimension. This is normal in size and demonstrate normal ultrasound morphology and flow. There are 7 lymph nodes identified in the right neck. There is a level 1A lymph node that is normal appearing and stable. There is a newly appreciated 1B lymph node that measures 7 x 5 x 6 mm and is normal in size. This demonstrates abnormal morphology with absent fatty hilum and round shape. There is a level 2 lymph node that has normal ultrasound morphology and is normal in size but slightly increased in size compared to prior prior exam. There is a new level 3 lymph node that is upper normal in size measuring 1.6 x 0.3 x 0.9 cm and has normal ultrasound morphology. There is a newly appreciated right level 3 lymph node that is upper normal in size measuring 1.4 x 0.3 x 0.8 cm. This has abnormal morphology with absent fatty hilum. There is a newly appreciated right level 4 lymph node that is upper normal in size measuring 1.1 x 0.2 x 0.9 cm and has normal ultrasound morphology. There is a newly appreciated slightly enlarged right level 5A lymph node that measures 1.4 x 0.3 x 1.2 cm and has normal ultrasound morphology. There are 2 newly appreciated left cervical lymph nodes. There is a level 1 lymph node that is upper normal in size measuring 0.8 x 0.7 x 1.5 cm and has normal ultrasound morphology. There is an upper normal level 3 lymph node that measures 1.6 x 0.2 x 0.7 cm and has abnormal ultrasound morphology with absent fatty hilum. There are 2 adjacent level 5A normal-appearing lymph nodes that was measured as one lymph node on prior exam. These are normal in size and have normal ultrasound morphology. Labs: Laboratory Tests 11/12/22 12/16/22 15:09 08:56 TSH 0.04 L Thyroglobulin 0.1 H Thyroglobulin Antibody <1 Currently on Tirosint 100 mcg . Is currently 18 wks . On levothyroxine 125 mcg PFSH Medical History Local recurrence of cancer of thyroid gland Acne History of thyroid cancer Hypothyroidism Thyroid cancer Vitamin D deficiency Thyroid nodule Surgical History Hx of total thyroidectomy Hx of knee surgery Hx of section Family History Father Vitamin D deficiency Mother Depression Hypertension Water retention Thyroid nodule Paternal Grandfather Colon cancer Social History Alcohol intake: never Patient Tobacco Use Status: Never used Tobacco Sexual orientation: Straight/Heterosexual Gender identity: Female Female Reproductive History Menstrual Age of Menarche: 13 Physical Exam Const Other: Healed scar status post thyroidectomy. 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 There was no angioinvasion, no lymphatic invasion, no perneural invasion, no extrathyroidal extension, and negative margins. No lymph nodes were excised. This was staged as pT2pNx. She underwent treatment with low-dose radioactive iodine 30 mCi and a 2nd dose recently. 150 mCi. She is currently on Tirosint 100 mcg. She appears to be clinically euthyroid but TSH is suppressed. Recent total body scan done with Thyrogen show residual uptake in the neck and right hemipelvis. Somewhat reassuring have been the the thyroglobulin levels have been low and stable and neck ultrasound has been negative. She also had a CT of the pelvis which was unremarkable.Is currrently 18 wks . Today, she appears to be clinically euthyroid. She is currently 18 weeks on The plan is to TSH and free T4 today as well as in 8 weeks adjust levothyroxine appropriately Orders: Orders Free T4 (Free Thyroxine) 8 Weeks C73 - Malignant neoplasm of thyroid gland Thyroid Stimulating Hormone 8 Weeks C73 - Malignant neoplasm of thyroid gland Coding Level of Care Code Est Pt Level 3 (07829) Diagnoses Thyroid cancer C73
[2024-04-12 09:42] VITALS: BP 104/68; PULSE 84; BMI 30.8
== END 2024-04-12 09:52 | disposition home or self-care (01) ==
PROVIDERS: PCP Registered Nurse; Referring Provider Registered Nurse; Visit Provider Internal Medicine Endocrinology, Diabetes & Metabolism
DX: C73 Malignant neoplasm of thyroid gland (principal)
CPT/HCPCS: 99213

== ENCOUNTER → 2024-04-12 09:29 | Outpatient (BNVA) | payer MEDICAID, SELFPAY | PROVIDERS: PCP Registered Nurse; Visit Provider Internal Medicine Endocrinology, Diabetes & Metabolism | DX: C73 Malignant neoplasm of thyroid gland (principal); E55.9 Vitamin D deficiency, unspecified | CPT/HCPCS: 99212 ==

== ENCOUNTER 2024-04-28 12:10 | Outpatient (REF) | payer MEDICAID, SELFPAY ==
[2024-04-28 13:20] LABS: Free T4 (Free Thyroxine) 1.07 ng/dL (0.71-1.85); Thyroid Stimulating Hormone 1.51 uIU/mL (0.32-4.0)
== END 2024-04-28 12:11 | disposition home or self-care (01) ==
LOC: HO.LAB 12:10
PROVIDERS: PCP Registered Nurse; Visit Provider Internal Medicine Endocrinology, Diabetes & Metabolism
DX: E03.9 Hypothyroidism, unspecified (principal)
CPT/HCPCS: 36415; 84439; 84443

== ENCOUNTER 2024-06-09 12:21 | Outpatient (REF) | payer MEDICAID, SELFPAY ==
[2024-06-09 13:53] LABS: Free T4 (Free Thyroxine) 0.97 ng/dL (0.71-1.85)
== END 2024-06-09 12:22 | disposition home or self-care (01) ==
LOC: HO.LAB 12:21
PROVIDERS: PCP Physician Assistant; Visit Provider Internal Medicine Endocrinology, Diabetes & Metabolism
DX: C73 Malignant neoplasm of thyroid gland (principal)
CPT/HCPCS: 36415; 84439; 84443

== ENCOUNTER 2024-06-20 09:25 | Outpatient (AMB) | payer MEDICAID, SELFPAY ==
--- NOTE | 2024-06-20 09:34 | MHC.OFFVIS ---
Vital Signs 06/20/24 09:36 Height 5 ft Weight 167 lb 5.294 oz BMI 32.7 BP 110/56 L Blood Pressure Location Rt brachial Position Sitting Pulse 106 H Pulse Source Pulse Oximeter Intake Visit Reasons: f/u hypothyroidism /thyroid cancer Intake Note: Patient present today for Hypothyroidism and thyroid cancer follow up visit. Patient is currently 28 weeks. Typing Pool Supervisor Required: Yes Typing Pool Supervisor Language: Medical Staff Director Services: Typing Pool Supervisor Present Typing Pool Supervisor Name: Maribell Information Interpreted: non-clinical & clinical Accompanied by: Self / Same As Patient Allergies No Known Allergies [No Known Allergies*] Allergy (Verified 06/20/24 09:36) HPI Comments Details: 33 YO F with no significant PMHx who is seen in F/U for thyroid cancer.. Was initially diagnosed with multinodular thyroid in 2019 with thyroid US revealing a large RMP nodule measuring 4.1 cm. This was biopsied by IR 03/07/2019 with benign cytology ([place] Category II). She was referred to Dr. Clint Cooper and underwent a R hemithyroidectomy due to compressive symptoms. 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 There was no angioinvasion, no lymphatic invasion, no perneural invasion, no extrathyroidal extension, and negative margins. No lymph nodes were excised. This was staged as pT2pNx. She underwent a completion thyroidectomy in November 06, 2020 with official surgical path benign. She was started on Tirosint 112 mcg PO daily postoperative, and reports good compliance with this. She underwent thyrogen stimulated remnant ablation on 05/01/2021 with 30.2 mCi of I131. TSH at that time was 76.3, but unfortunately no TG or TG antibodies were drawn at that time. WBS completed 05/10/2021 revealed intense foci of uptake within the neck, but otherwise only physiologic uptake. She had labs repeated 08/22/2021 with TSH 0.11, TG <0.1 and negative TG antibodies. Labs 11/26/2021 with TSH 0.29, TG <0.1 and TGAB <1. She had an US of the neck which revealed no abnormal appearing lymph nodes at that time. She then underwent a repeat WBS 10/24/2022 via thyroid hormone withdrawal. 10/16/2022 TSH 33.95, TG 0.9 and TGAB <1. WBS revealed increased radiotracer uptake in the upper neck in the region of the right thyroidectomy bed and along the thyroglossal duct. Uptake was otherwise physiologic. She underwent an US head and neck which did reveal multiple abnormal and enlarged lymph nodes bilaterally. I repeated her US myself and noted an abnormal appearing 0.7 cm lymph node in the right level 1B. No FNA was completed based on size. Patient presents today to discuss high dose I131 treatment. Whole Body Scan: 10/24/2022 Increased tracer radioiodine uptake in the upper neck in the region of the right thyroidectomy bed and along the thyroglossal duct. 48 hours uptake in the neck was 0.2%. Impression: Residual radioiodine activity within the neck suggestive of thyroid tissue or local disease. No evidence for iodine avid distant metastatic disease. US Head and Neck: 10/31/2022 THYROID BED: Prior thyroidectomy. No residual thyroid tissue demonstrated in the thyroid bed. No cystic or solid nodules demonstrated in the thyroid bed. There is a new midline level 1A lymph node that measures 6 x 3 x 7 mm in sagittal AP and transverse dimension. This is normal in size and demonstrate normal ultrasound morphology and flow. There are 7 lymph nodes identified in the right neck. There is a level 1A lymph node that is normal appearing and stable. There is a newly appreciated 1B lymph node that measures 7 x 5 x 6 mm and is normal in size. This demonstrates abnormal morphology with absent fatty hilum and round shape. There is a level 2 lymph node that has normal ultrasound morphology and is normal in size but slightly increased in size compared to prior prior exam. There is a new level 3 lymph node that is upper normal in size measuring 1.6 x 0.3 x 0.9 cm and has normal ultrasound morphology. There is a newly appreciated right level 3 lymph node that is upper normal in size measuring 1.4 x 0.3 x 0.8 cm. This has abnormal morphology with absent fatty hilum. There is a newly appreciated right level 4 lymph node that is upper normal in size measuring 1.1 x 0.2 x 0.9 cm and has normal ultrasound morphology. There is a newly appreciated slightly enlarged right level 5A lymph node that measures 1.4 x 0.3 x 1.2 cm and has normal ultrasound morphology. There are 2 newly appreciated left cervical lymph nodes. There is a level 1 lymph node that is upper normal in size measuring 0.8 x 0.7 x 1.5 cm and has normal ultrasound morphology. There is an upper normal level 3 lymph node that measures 1.6 x 0.2 x 0.7 cm and has abnormal ultrasound morphology with absent fatty hilum. There are 2 adjacent level 5A normal-appearing lymph nodes that was measured as one lymph node on prior exam. These are normal in size and have normal ultrasound morphology. Labs: Laboratory Tests 11/12/22 12/16/22 15:09 08:56 TSH 0.04 L Thyroglobulin 0.1 H Thyroglobulin Antibody <1 Currently on Levothyroxine 125 mcg . Is currently 28 wks . On levothyroxine 125 mcg . Complaining of some pain perhaps in the salivary gland which is somewhat chronic PFSH Medical History Local recurrence of cancer of thyroid gland Acne History of thyroid cancer Hypothyroidism Thyroid cancer Vitamin D deficiency Thyroid nodule Surgical History Hx of total thyroidectomy Hx of knee surgery Hx of section Family History Father Vitamin D deficiency Mother Depression Hypertension Water retention Thyroid nodule Paternal Grandfather Colon cancer Social History Alcohol intake: never Patient Tobacco Use Status: Never used Tobacco Sexual orientation: Straight/Heterosexual Gender identity: Female Female Reproductive History Menstrual Age of Menarche: 13 Physical Exam Const Other: Healed scar status post thyroidectomy. 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 There was no angioinvasion, no lymphatic invasion, no perneural invasion, no extrathyroidal extension, and negative margins. No lymph nodes were excised. This was staged as pT2pNx. She underwent treatment with low-dose radioactive iodine 30 mCi and a 2nd dose recently. 150 mCi. She is currently on Tirosint 100 mcg. She appears to be clinically euthyroid but TSH is suppressed. Recent total body scan done with Thyrogen show residual uptake in the neck and right hemipelvis. Somewhat reassuring have been the the thyroglobulin levels have been low and stable and neck ultrasound has been negative. She also had a CT of the pelvis which was unremarkable.Is currrently 18 wks . Today, she appears to be clinically and biochemically euthyroid. She is currently 27 weeks on levothyroxine 125 mcg The plan is to continue current therapy. We will recheck TSH and free T4 in 4-6 weeks. We will schedule appointment with Dr. Sandoval an uniform patrol police officer in our practice with expertise in neck ultrasound and thyroid cancer. Will need to have TFTs checked for possible dose reduction levothyroxine. Perhaps, Dr. Sandoval can scan her neck to see if salivary glands are enlarged and possibly make a referral to ENT if the ?sialadenitis continues Orders: Orders Free T4 (Free Thyroxine) 6 Weeks C73 - Malignant neoplasm of thyroid gland Thyroid Stimulating Hormone 6 Weeks C73 - Malignant neoplasm of thyroid gland Coding Level of Care Code Est Pt Level 3 (21857) Diagnoses Thyroid cancer C73
[2024-06-20 09:36] VITALS: BP 110/56; PULSE 106; BMI 32.7
== END 2024-06-20 09:50 | disposition home or self-care (01) ==
PROVIDERS: PCP Physician Assistant; Visit Provider Internal Medicine Endocrinology, Diabetes & Metabolism
DX: C73 Malignant neoplasm of thyroid gland (principal)
CPT/HCPCS: 99213

== ENCOUNTER → 2024-06-20 09:25 | Outpatient (BNVA) | payer MEDICAID, SELFPAY | PROVIDERS: PCP Physician Assistant; Visit Provider Internal Medicine Endocrinology, Diabetes & Metabolism | DX: C73 Malignant neoplasm of thyroid gland (principal) | CPT/HCPCS: 99212 ==

== ENCOUNTER 2024-08-03 09:11 | Outpatient (REF) | payer MEDICAID, SELFPAY ==
--- OUTSIDE RECORDS SUMMARY | 2024-08-03 09:31 | XMS_ITS | Data Portability ---
Author Organization [place] - [facility], All[facility] Address [address] [place] [id number] Assessment Encounter Date Assessment Date Assessment LastModified by Organization Details LastModified Time 02/18/2024 02/18/2024 Patient describes a history of recurring sialoadenitis affecting bilateral parotid glands between August to October of this year. Since that time she has not had further flareups. This is likely related to viral injury which is exacerbated by her history of previous radioactive iodine treatment. At this time she has clear saliva with no palpable stones and no tenderness of her salivary glands. Encouraged her to consume more water and apply warm compress and gentle massage if her glands swell in the future. Consideration was given to autoimmune conditions such as sarcoidosis and Sjogren's which are felt to be less likely as her flareup was temporary and she has had no further symptoms [email or web address] Not available 02/18/2024 11:58:27 Plan of Treatment Reminders Order Date Submit Date Provider Last Modified By Organization Details Last Modified Time Details Appointments None record ed. Lab None record ed. Referral None record ed. Procedures None record ed. Surgeries None record ed. Imaging None record ed. Medication Orders None record ed. Patient TargetsNo targets recorded. Patient InstructionsNo instructions recorded. Reason for Referral None Reported. Problems Name Problem SNOMED Code Status Onset Date Resolution Date Notes Provider Name and Address Organization Details Recorded Time Acute sialoadenitis [id number] Active 2023 ALBERTINA VELEZ MD [address], [phone] 11:55:00 Problem Notes None recorded. Medical Equipment None Reported. Allergies No known drug allergies Medications Name Sig Start Date Stop Date Status Note LastModified by Organization Details LastModified Time cetirizine 10 mg tablet TOME GISEL TABLETA (10 MG) POR V A ORAL A DIARIO CUANDO SEA NECESARIO FOR ALLERGIES 02/17 completed Not Available Not Available Not Available fluconazole 150 mg tablet TOME 1 TABLETA POR V A ORAL ONCE MAY REPEAT SECOND DOSE 72 HRS AFTER FIRST DOSE IF SYMPTOMS PERSIST 02/17 completed Not Available Not Available Not Available Miconazole- 7 2 % vaginal cream INSERT 1 APPFUL VAGINALLY BEDTIME FOR 7 DAYS 02/17 completed Not Available Not Available Not Available amoxicillin 875 mg tablet TOME GISEL TABLETA DOS VECES AL D A POR 10 D 02/17 completed Not Available Not Available Not Available ibuprofen 400 mg tablet TAKE 1 TABLET BY MOUTH EVERY 6 HOURS NEEDED FOR PAIN 02/17 completed Not Available Not Available Not Available fluticasone propionate 50 mcg/actuati on nasal spray,suspe nsion PLEASE SEE ATTACHED FOR DETAILED DIRECTION S 02/17 completed Not Available Not Available Not Available amoxicillin 875 mg-potassiu m clavulanate 125 mg tablet TOME 1 TABLETA POR V A ORAL DOS VECES AL D A FOR 14 DAYS 02/17 completed Not Available Not Available Not Available levothyroxi ne 125 mcg active Not Available Not Available Not Available active Not Available Not Avai lable Not Available ferrous gluconate 324 mg (38 mg iron) tablet PLEASE SEE ATTACHED FOR DETAILED DIRECTION S 02/17 completed Not Available Not Available Not Available cholecalcif alfonso (vitamin D3) 50 mcg (2,000 unit) capsule TOME GISEL C PSULA TODOS LOS D 02/17 completed Not Available Not Available Not Available Tirosint 125 mcg capsule TOME 1 C PSULA POR V A ORAL TODOS LOS D 02/17 completed Not Available Not Available Not Available Tirosint 100 mcg capsule TOME 1 C PSULA POR V A ORAL TODOS LOS D 02/17 completed Not Available Not Available Not Available Tirosint 88 mcg capsule TOME 1 C PSULA POR V A ORAL TODOS LOS D 02/17 completed Not Available Not Available Not Available Tirosint 112 mcg capsule TOME 1 C PSULA POR V A ORAL TODOS LOS D 02/17 completed Not Available Not Available Not Available M-Choco Plus 27 mg iron-1 mg tablet TOME 1 TABLETA POR V A ORAL TODOS LOS D 02/17 completed Not Available Not Available Not Available Vitals Date Recorded Body height Body mass index (BMI) Body weight Provider Name and Address Organization Details Last Updated DateTime 02/18/2024 152.4 cm 29.7 kg/m2 28910.04 g Talia Cohen [place] - [facility] 02/18/2024 11:33:01 Social History None recorded. Functional Status None recorded. Mental Status None recorded. Family History Nothing Reported. Medical History No medical history recorded. Gynecological HistoryNo gynecological history recorded. Obstetrics History GPAL:G 0 P 0 0 0 0 Past Encounters Encounter ID Performer Location Encounter Start Date Encounter Closed Date Diagnosis/Indication Diagnosis SNOMED-CT Code Diagnosis ICD10 Code Diagnosis Note [id number] ALBERTINA VELEZ MD [facility] [address] [phone] 02/18/2024 10:40:20 02/18/2024 11:57:51 Acute sialoadenitis 337166780 K11.21 Health Concerns Section Related Observation LastModified by Organization Detai ls LastModified Time None Recorded Concern Status LastModified by Organization Details LastModified Time None Recorded Advance Directives Directive None Recorded Payers Encounter Date Sequence Insurance Name Policy Number Policy Hutchins Covered Member ID Hutchins Member ID Guarantor Name 02/18/2024 1 [place] [facility] Meredith Hammer [id number] Meredith Hammer Notes Date Note Type Note Provider Name and Address Organization Details Recorded Time 02/18/2024 text/html welsh - ipadsw elling of bilateral parotidonset around uration a few hours at a timemade worse with eatingfrequency about every other day initially through October, but none recentlyassociated with a sour tasteteeth are in good conditionhad radioactive iodine for thyroid, completed 2020, and 2022 ALBERTINA VELEZ MD [address] [place] [address], [phone], [place] - [facility] 02/18/2024 11:58:39 OBGyn Episode No OBEpisode recorded.
--- OUTSIDE RECORDS SUMMARY | 2024-08-03 09:31 | XMS_ITS | Encounter Summary ---
Author Organization [employer] Address [address] [facility] [address] [place] [address] Care Team Providers Care Passenger Vessel Chef Name Role Phone Lizeth Bernard Primary Care Provider [phone] Phong Matson MD Unavailable [phone] Reason for Visit * Reason Onset Date Comments Nurse Triage 10/07/2023 Encounter Details Date Type Department Care Team ([facility] st Contact Info) Description 10/07/2023 Telephone [facility] [address] [place] [address] Lizeth Bernard FNP [address] [place], [place] [id number] Nurse Triage Social History Tobacco Use Types Packs/Day Years Used Date Smoking Tobacco: Never Passive Smoke Exposure: Never Smokeless Tobacco: Never Alcohol Use Standard Drinks/Week Comments Never 0 (1 standard drink = 0.6 oz pur e alcohol) Depression Answer Date Recorded Patient Health Questionnaire-9 Score 1 11/18/2022 Housing Stability Answer Date Recorded What is your housing situation today? I have tonie gonzales 04/15/[address] you li ve. Do you have problems with any of the following? None of the above 04/15/2023 Food Insecurity Answer Date Recorded Within the past 12 months, y ou worried that your food would run out before you got money to buy more: Never True 04/15/2023 Within the past 12 months,th e food you bought just didn't last and you didn't have enough money to get more: Never True Transportation Answer Date Recorded In the past 12 months, has l ack of transportation kept you from medical appts, meetings, work or from getting things needed for daily living? No 04/15/2023 Utilities Answer Date Recorded In the past 12 months, has t he electric, gas, oil or water company threatened to shut off services in your home? No 04/15/2023 Depression Answer Date Recorded Patient Health Questionnaire-2 Score 0 11/18/2022 Comments No Sex and Gender Information Value Date Recorded Sex Assigned at Female 04/28/2022 10:20 AM EDT Legal Sex Female 10:20 AM EDT Gender Identity Female 04/28/2022 10:20 AM EDT Sexual Orientation Straight 04/28/2022 10 :20 AM EDT documented as of this encounter Miscellaneous Notes * Telephone Encounter - Kary Escalona RN - 10/07/2023 1:02 PM EDT Triage call with [employer] [place] [id number] Pt reports salivary gland pain on left side. Pt has had this a month ago affecting the right side. Pt reports neg for fever, pain is on left side with some swelling noted left lower cheek/jaw and under left ear area. Pt reports a bitter taste with eating as well. Apt with PCP 10/09/23 @ 900am [facility] [address] [place]. Pt agreed with disposition and advised to apply heat to jaw area for comfort. Insurance is verified as active prior to booking. Protocol Used: No Protocol Available (Adult) Protocol-Based Disposition: See in Office or Video Visit Today or Tomorrow Override (Final) Disposition: See in Office or Video Visit within 3 Days Override Reason: No appointments available Video visit not offered Positive Triage Question: * Nursing judgment * All higher-acuity triage questions were negative Care Advice Discussed: * Reasons To Call Back - New symptoms develop - You become worse * Telephone Encounter - Erika Medeiros - 10/07/2023 12:22 PM EDT Symptom: Sore Throat Outcome: Schedule an appointment to be seen within 24 hours Reason: salivary glands The caller accepted this outcome Armenian speaker documented in this encounter Plan of Treatment Not on file documented as of this encounter Visit Diagnoses Not on filedocumented in this encounter Additional Health Concerns Assessment Noted Time PHQ-9 Depression Total Score: 1 11/19/19 23 3:22 PM EDT documented as of this encounter Care Teams Passenger Vessel Chef Relationship Specialty Start Date End Date Lizeth Bernard FNP [address] [place] [address] PCP - General Family Medicine 02/24/22 Phong Matson MD [address] [place] [id number] Endocrinology 05/15/24 documented as of this encounter
--- OUTSIDE RECORDS SUMMARY | 2024-08-03 09:31 | XMS_ITS | Clinical Summary ---
Author Organization [employer] Address [address] [facility] 7t [place] [address] Care Team Providers Care Electronic Equipment Repairmen Name Role Phone PamellaLizeth lawrence VICTORINO Primary Care Provider [phone] Phong Matson MD Unavailable [phone] Allergies Active Allergy Reactions Criticality Noted Date Comments Lactose 12/04/2022 Medications acetaminophen (Tylenol 8 Hour) 650 MG ER tablet Take 1 tablet by mouth every 8 (eight) hours. 2 Active ibuprofen 600 MG tablet TOME GISEL TABLETA CADA OCHO HORAS CUANDO SEA NECESARIO 2 Active Vit-Fe Fumarate-FA (M-Choco Plus) 27-1 MG tablet TOME GISEL TABLETA TODOS LOS D 3 Active cetirizine (ZyrTEC) 10 MG tablet Take 1 tablet (10 mg) by mouth if needed each day for allergies. 90 tablet 3 3 Active ferrous gluconate (Fergon) 324 (38 Fe) MG tablet TAKE 1 PILL EVERY THURSDAY, THURSDAY, AND THURSDAY. TAKE WITH A FULL GLASS OF WATER OR VIT C CONTAINING JUICE, AND IDEALLY 1 HOUR BEFORE A MEAL OR 2 HOURS AFTER A MEAL 36 tablet 3 Active cholecalciferol 50 MCG (1999 UT) capsuleIndicati ons:Vitamin D deficiency TOME GISEL CAPSULA TODOS LOS CAMEJO 90 capsule 3 4 Active fluticasone (Flonase) 50 MCG/ACT nasal sprayIndication s:Nasal congestion ROCIAR 2 VECES EN CADA FOSA NASAL EN LA MANANA SHAKE GENTLY/PRIME BEFORE 1ST USE&CLEAN TIP/REPLACE CAP 48 mL 11 4 Active levothyroxine (Synthroid, Levoxyl) 125 MCG tablet Take 125 mcg by mouth Once per day. Active Active Problems Problem Noted Date Diagnosed Date Sialadenitis 10/10/2023 Assessment & Plan (05/15/2024 7:29 PM EST): Occurred on right side August 2023, followed by left side in September 2023 Ddx: salivary gland stone vs ductal strictures vs bacterial infx vs inflammation/SE from radiation vs other Tx with abx - Augmentin. Also encouraged sucking on sour candy Neck CT 12/08/23: chronic postoperative changes of a thyroid resection. Otherwise unremarkable examination. No abnormal mass or nodular enhancement at the thyroidectomy bed. No pathologically enlarged cervical lymph nodes. ENT consult in Jan 2024 - Dr. Fierro at [facility]. Suspected possibly d/t viral injury exacerbated by previous radioactive iodine tx. Assessment & Plan (10/10/2023 7:59 PM EDT): Occurred on right side August 2023, followed by left side in September 2023 Ddx: salivary gland stone vs ductal strictures vs bacterial infx vs inflammation/SE from radiation vs other No abscess or compromise of airway noted on exam Plan to re-treat with Augmentin as that improved symptoms last episode, reviewed med use and SE. Also encouraged sucking on sour candy ENT appt not scheduled until Jan 2024 Will plan to proceed with CT with contrast for further eval ED/urgent care precautions reviewed Healthcare maintenance 02/17/2023 Overview (2023): Pap: NILM HPV neg 11/06/22 by [facility] BLIND STITCH MACHINE OPERATOR Talia Yao Acne vulgaris 11/19/2022 Assessment & Plan (02/18/2023 6:43 PM EDT): ?? Inflammatory papules and pustules on face, back and chest clear ?? Tretinoin 0.025% cream sent to [facility] ?? Doxycycline on hold given upcoming thyroid tx. May resume in future if interested Assessment & Plan (11/19/2022 10:29 PM EDT): ?? Inflammatory papules and pustules on face, back and chest clear ?? Continues with Cetaphil cleanser and topical tretinoin 0.01% gel every other night by topical route ?? Start doxycycline 100mg PO daily. Reviewed med safety and SE, especially photosensitivity as summer is nearing. Malignant tumor of thyroid gland 07/29/2022 Overview (05/15/2024): Initially diagnosed with multinodular thyroid 2019 Biopsied by IR 03/07/2019 with benign cytology ([place] Category II). Subsequent R hemithyroidectomy d/t compressive symptoms performed by Dr. 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 Staged pT2pNx 11/06/20: completion thyroidectomy w/ official surgical path benign. Per consult note: She then underwent a repeat WBS 10/24/2022 via thyroid hormone withdrawal. 10/16/2022 TSH 33.95, TG 0.9 and TGAB <1. WBS revealed increased radiotracer uptake in the upper neck in the region of the right thyroidectomy bed and along the thyroglossal duct. Uptake was otherwise physiologic. Plan for now is for me to repeat the US of her neck and to reevaluate the lymph nodes in the R thyroid bed. I will perform FNA biopsy of any abnormal appearing lymph nodes measuring >1.0 cm. If none are identified, then we will proceed with high dose I131 adjuvant treatment with 150 mCi. If an abnormal lymph node is identified and FNA reveals metastatic thyroid cancer, I will refer her for surgical resection of anything measuring >1 cm. Postoperatively she will require repeat I131 treatment. Assessment & Plan (02/18/2023 6:45 PM EDT): ?? Initially diagnosed with multinodular thyroid 2019 ?? Biopsied by IR 03/07/2019 with benign cytology ([place] Category II). ?? Subsequent R hemithyroidectomy d/t compressive symptoms performed by Dr. Cooper ?? 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 ?? 11/06/20: completion thyroidectomy w/ official surgical path benign. Per consult note: She then underwent a repeat WBS 10/24/2022 via thyroid hormone withdrawal. 10/16/2022 TSH 33.95, TG 0.9 and TGAB <1. WBS revealed increased radiotracer uptake in the upper neck in the region of the right thyroidectomy bed and along the thyroglossal duct. Uptake was otherwise physiologic. Plan for now is for me to repeat the US of her neck and to reevaluate the lymph nodes in the R thyroid bed. I will perform FNA biopsy of any abnormal appearing lymph nodes measuring >1.0 cm. If none are identified, then we will proceed with high dose I131 adjuvant treatment with 150 mCi. If an abnormal lymph node is identified and FNA reveals metastatic thyroid cancer, I will refer her for surgical resection of anything measuring >1 cm. Postoperatively she will require repeat I131 treatment. -Plan for upcoming tx in Feb 2023 Assessment & Plan (11/19/2022 10:37 PM EDT): ?? Initially diagnosed with multinodular thyroid 2019 ?? Biopsied by IR 03/07/2019 with benign cytology ([place] Category II). ?? Subsequent R hemithyroidectomy d/t compressive symptoms performed by Dr. Cooper ?? 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 ?? 11/06/20: completion thyroidectomy w/ official surgical path benign. Per consult note: She then underwent a repeat WBS 10/24/2022 via thyroid hormone withdrawal. 10/16/2022 TSH 33.95, TG 0.9 and TGAB <1. WBS revealed increased radiotracer uptake in the upper neck in the region of the right thyroidectomy bed and along the thyroglossal duct. Uptake was otherwise physiologic. Plan for now is for me to repeat the US of her neck and to reevaluate the lymph nodes in the R thyroid bed. I will perform FNA biopsy of any abnormal appearing lymph nodes measuring >1.0 cm. If none are identified, then we will proceed with high dose I131 adjuvant treatment with 150 mCi. If an abnormal lymph node is identified and FNA reveals metastatic thyroid cancer, I will refer her for surgical resection of anything measuring >1 cm. Postoperatively she will require repeat I131 treatment. Osteophyte, vertebrae 07/29/2022 Vitamin D deficiency 07/29/2022 Postoperative hypothyroidism 12/03/2021 Overview (05/15/2024): S/p thyroid CA Continues with levothyroxine 125 mcg PO daily TSH goal: normal range <2.5 during Following with [facility] Lab Results Component Value Date TSH 1.51 04/28/2024 History of total thyroidectomy 12/12/2020 Sickle cell trait 08/14/2016 Dyschromia 12/02/2011 Comments Yes Encounters Date Type Department Care Team Description 05/13/2024 10:00 AM EST Office Visit [facility] [address] [place] [address] Lizeth Bernard FNP Postoperative hypothyroidism (Primary Dx); Healthcare maintenance; History of anemia; Malignant tumor of thyroid gland (CMS/HCC); Sialadenitis 05/13/2024 Travel 05/12/2024 Telephone [facility] [address] [place] [address] Sridhar Prince MA Chart Prep from Last 3 Months Immunizations Name Administration Dates Next Due DTaP 02/12/2006, 7,12/23/1993,03/18,01/15/1993,1992 HPV, Quadrivalent 09/17/2009,06/05/2009,03/22/20 09 Hep B, Adolescent or Pediatric 02/15/1994,1993,08/20/1993 Hib ([facility]) 12/23/1993, 3,01/15/1993,11/14 IPV 10/24/1996, 4,01/15/1993,11/14 Influenza Injectable Quadriv alant Preservative Free IIV4 MDCK 04/18/2019 Influenza, IIV3, injectable 03/11/2011 Influenza, Injectable, MDCK, preservative free 03/10/2024 Influenza, Split (incl. storm fied surface antigen) 07/04/2013,06/09/2012 Influenza, seasonal, injecta ble, preservative free 04/14/2016 MMR 10/24/1996,1993 Meningococcal MCV4P ACYW-135 03/22/2009 Pfizer Covid-19 Vaccine 12+ 12/19/2020 Tdap 02/18/2016,09/15/2012 Varicella 06/05/2009,03/22/2009 Family History Medical History Relation Name Comments Depression Mother Diabetes Mother Hypertension Mother Thyroid nodules Mother knee arthritis Mother Thyroid cancer Mother's Sister Colon cancer Paternal Grandfather Relation Name Status Comments Mother Mother's Sister Paternal Grandfather Social History Tobacco Use Types Packs/Day Years Used Date Smoking Tobacco: Never Passive Smoke Exposure: Never Smokeless Tobacco: Never Tobacco Cessation:Counseling Given: Not Answered Alcohol Use Standard Drinks/Week Comments Never 0 (1 standard drink = 0.6 oz pur e alcohol) Depression Answer Date Recorded Patient Health Questionnaire-9 Score 1 11/18/2022 Housing Stability Answer Date Recorded What is your housing situation today? I have tonie gonzales 05/13/[address] you li ve. Do you have problems with any of the following? None of the above 05/13/2024 Food Insecurity Answer Date Recorded Within the past 12 months, y ou worried that your food would run out before you got money to buy more: Never True 05/13/2024 Within the past 12 months,th e food you bought just didn't last and you didn't have enough money to get more: Never True Transportation Answer Date Recorded In the past 12 months, has l ack of transportation kept you from medical appts, meetings, work or from getting things needed for daily living? No 05/13/2024 Utilities Answer Date Recorded In the past 12 months, has t he electric, gas, oil or water company threatened to shut off services in your home? No 05/13/2024 Depression Answer Date Recorded Patient Health Questionnaire-2 Score 0 11/18/2022 Internet Access Answer Date Recorded Internet Access Q1 Yes 05/13/2024 Internet Access Q2 Not on file 05/13/2024 Comments Yes Sex and Gender Information Value Date Recorded Sex Assigned at Female 04/28/2022 10:20 AM EDT Legal Sex Female 10:20 AM EDT Gender Identity Female 04/28/2022 10:20 AM EDT Sexual Orientation Straight 04/28/2022 10 :20 AM EDT Last Filed Vital Signs Vital Sign Reading Time Taken Comments Blood Pressure 109/69 05/13/2024 10:00 AM EST Pulse 94 05/13/2024 10:00 AM EST Temperature 36.7 ??C (98 ??F) 05/13/2024 10:00 AM EST Respiratory Rate 18 05/13/2024 10:00 AM EST Oxygen Saturation 98% 05/13/2024 10:00 AM EST Inhaled Oxygen Concentration - - Weight 71.9 kg (158 lb 8 oz) 05/13/2024 10:00 AM EST Height 152.4 cm (5') 05/13/2024 10:00 AM EST Body Mass Index 30.95 05/13/2024 10:00 AM EST Plan of Treatment Health Maintenance Due Date Last Done Comments Family Planning (PISQ) 09/14/2007 Hepatitis C Screening 2010 Depression Screening 11/19/2023 11/18/2022, 11/19/19 Alcohol/Substance Use Screening 05/13/2025 05/13/2024 COVID-19 Vaccine ( season) 2025 07/03/2022, 12/19/2020 Postponed from 02/28/2024 (Patient Refused) SDOH Screening 05/13/2025 05/13/2024 Tobacco Screening 05/13/2025 05/13/2024 DTaP/Tdap/Td Vaccines (9 - Td or Tdap) 02/17/2026 02/18/2016, 09/15/2012, 02/12/2006, Additional history exists Cervical Cancer Screening 11/07/2027 HPV/Cotest 11/07/2027 11/06/2022 Pap Smear 11/07/2027 11/06/2022, 09/10/2020 Zoster Vaccines (1 of 2) 2042 RSV Patients and Patients Aged 60 years or older (1 - 1-dose 75+ series) 09/14/2067 HIB Vaccines Completed 12/23/1993, 02/28, 01/15/1993, Additional history exists Hepatitis B Vaccines Completed 02/15/1994, 09/25/1993, 08/20/1993 IPV Vaccines Completed 10/24/1996, 11/28, 01/15/1993, Additional history exists Meningococcal Vaccine Completed 03/22/2009 HPV Vaccines Completed 09/17/2009, 1201/2009, 03/22/2009 HIV Screening Completed 01/09/2020 Influenza Vaccine Completed 03/10/2024, , 04/14/2016, Additional history exists Hepatitis A Vaccines Aged Out No long er eligible based on patient's age to complete this topic Pneumococcal Vaccine: Pediatrics (0 to 5 Years) and At-Risk Patients (6 to 49) Years) Aged Out No longer eligible based on patient's age to complete this topic RSV under 20 months Aged Out No longe r eligible based on patient's age to complete this topic Rotavirus Vaccines Aged Out No longer eligible based on patient's age to complete this topic Procedures Procedure Name Priority Date/Time Associated Diagnosis Comments POCT HEMOGLOBIN Routine 05/13/2024 10:49 AM EST History of anemia HPV MRNA E6/E7 REFLEX TO HPV 16, 18/45 Routine 11/06/2022 2:55 PM EDT PAP SMEAR Routine 11/06/2022 2:55 PM EDT ZZZ HISTORICAL HIV AB/AG Routine 01/09/2020 9:10 AM EDT from Last 3 Months or Most Recently Relevant to Health Maintenance Results * (ABNORMAL) POCT hemoglobin docked device (05/13/2024 10:49 AM EST) Hemoglobin 11.4(A) 12.0 - 15.0 QC Media Lot # Comment:[id number] Lot# Expiration Date Comment:07/01/2025 Blood 05/13/2024 10:4 9 AM EST Lizeth Bernard MANAGER FILE POINT OF CARE TEST ENTER/EDIT ORDERABLES Final Result * HPV mRNA E6/E7 w/Reflex to HPV Genotypes 16, 18/45 (11/06/2022 2:55 PM EDT) HPV nRNA E6/E7 Not Detected Not Detected [facility] Comment:Methodology: Transcr iption-Mediated AmplificationThis assay detects E6/E7 viral messenger RNA (mRNA) from 14high-risk HPV types (16,18,31,33,35,39,45,51,52,56,58,59,66,68).Cervical sources are required for HPV testing.If a vaginal source from a patient who has had atotal hysterectomy with removal of cervix wassubmitted, please contact the testing laboratoryfor alternative testing options.For additional information, please refer [email or web address] [email or web address]/DWD443l9(This link if provided for information/educational purposes only.)THIS TEST WAS PERFORMED AT:[facility] [place] [phone] HAYWARD MD HPV mRNA E6/E7 [facility] HPV 16 RNA TNP [facility] HPV 18/45 RNA [facility] 11/06/2022 2:55 PM EDT 11/07/2022 9:18 AM EDT [facility] External Provider LAB CYT OLOGY ORDERABLES Final Result Performing Organization Address City/State/[facility] Co de Phone Number [facility] [address] [place] [phone] * Pap Smear (11/06/2022 2:55 PM EDT) 11/06/2022 2:55 PM EDT 11/07/2022 9:15 AM EDT Ivet [facility] - 11/12/2022 3:14 PM EDT ----- ------- Name: Meredith Mcbride ?Age/Sex: 32/F ? : 1990 Unit#: [id number] ?? Attend Dr: Yao,Talia CNM ?Re11/06/22 ?Status: DEP REF ? Location: HO.LNP ?Disch: ? ----- ------- SPEC : [id number] ? RECD: 11/07/22 ? STATUS: ??SOUT ? REQ NUM: [id number] ? SUMANTH: 11/06/22 ? SUBM DR: Talia Yao CNM ? ENTERED: ??11/07/22 ?SP TYPE: Pap Smr ?OTHR DR: Lizeth Bernard MANAGER FILE ? ORDERED: ??Pap Smear ? Interpretation ?? Satisfactory for evaluation. ?? Negative for intraepithelial lesion or malignancy. ?HPV mRNA E6/E7: ?NOT DETECTED ? This assay detects E6/E7 viral messenger RNA (mRNA) from 14 high-risk HPV types (16, 18, ?? 31, 33, 35, 39, 45, 51, 52, 56, 58, 59, 66, 68) ?? HPV testing performed by [facility], [place], [place]. ??See reference laboratory ?? pion of the EMR for entire report. ?Clinical Information LMP: 10/30/22 Previous PAP test: 2020, WNL ? Material Received ?? ThinPrep-Cervical Copies To: ?? Talia Yao CNSuhail ?? [address] ?? [place] [address] ?? [phone] ?? Lizeth Bernard MANAGER FILE ?? [address] [facility] ?? [place] [address] ?? [phone] ----- ------- Signed (signature on file) HAJA Meadows ([facility]) 11/12/22 1014 ? ----- ------- ? END OF REPORT ? [facility] External Provider LAB CYT OLOGY ORDERABLES Final Result [facility] [address] [place] [address] [phone] * HIV AB/AG (01/09/2020 9:10 AM EDT) [facility] HIV AG/AB NONREACTIVE [facility] Comment: HIV-1 p24 Ag and/or HIV-1/HIV-2 Ab not detected. ?? A test result that is nonreactive does not exclude the possibility of exposure to or infection with HIV-1 and/or HIV-2. Nonreactive results in this assay for individuals with prior exposure to HIV-1 and/or HIV-2 may be due to antigen and antibody levels that are below the limit of detection of this assay. ?? The [employer] HIV Ag/Ab Combo assay result and supplemental assay results should be interpreted in conjunction with the patient's clinical presentation, history and other laboratory results. ??If the results are inconsistent with clinical evidence, additional testing is suggested to confirm the result. 01/09/2020 9:10 AM EDT Allie Gaines NP HISTORICAL/NON ORDERABLE LABS Fi nal Result [facility] [address] from Last 3 Months or Most Recently Relevant to Health Maintenance Insurance [facility] C3 * Guarantor: Meredith Mcbride Account Type Relation to Patient Date of Phone Billing Address Personal/Family Self [address] [place] Care Teams Electronic Equipment Repairmen Relationship Specialty Start Date End Date Lizeth Bernard FNP [address] [place] [phone] PCP - General Family Medicine 02/24/22 Phong Matson MD [address] [place] [phone] Endocrinology 05/15/24
--- OUTSIDE RECORDS SUMMARY | 2024-08-03 09:31 | XMS_ITS | Encounter Summary ---
Author Organization [employer] Address [address] [facility] [address]t [place] [address] Care Team Providers Care Nuclear Fuels Research Engineer Name Role Phone Lizeth Bernard Primary Care Provider [phone] Phong Matson MD Unavailable [phone] Encounter Details Date Type Department Care Team ([facility] st Contact Info) Description 03/30/2023 Abstract [facility] [address] [place], [place] [phone] Lizeth Bernard FNP [address] [place] [address] Social History Tobacco Use Types Packs/Day Years Used Date Smoking Tobacco: Never Passive Smoke Exposure: Never Smokeless Tobacco: Never Alcohol Use Standard Drinks/Week Comments Never 0 (1 standard drink = 0.6 oz pur e alcohol) Depression Answer Date Recorded Patient Health Questionnaire-9 Score 1 11/18/2022 Depression Answer Date Recorded Patient Health Questionnaire-2 Score 0 11/18/2022 Comments No Sex and Gender Information Value Date Recorded Sex Assigned at Female 04/28/2022 10:20 AM EDT Legal Sex Female 10:20 AM EDT Gender Identity Female 04/28/2022 10:20 AM EDT Sexual Orientation Straight 04/28/2022 10 :20 AM EDT documented as of this encounter Plan of Treatment Not on file documented as of this encounter Procedures Procedure Name Priority Date/Time Associated Diagnosis Comments PAP/HPV Routine 09/10/2020 documented in this encounter Results * Hm Pap Smear (09/10/2020) Pap Negative for intraephithelial lesion or malignancy Negative for intraephithelial lesion or malignancy, Other us Historical Provider HEALTH MAINTENANCE Final Result documented in this encounter Visit Diagnoses Not on filedocumented in this encounter Additional Health Concerns Assessment Noted Time PHQ-9 Depression Total Score: 1 11/19/19 23 3:22 PM EDT documented as of this encounter Care Teams Nuclear Fuels Research Engineer Relationship Specialty Start Date End Date Lizeth Bernard FNP [address] [place] [phone] PCP - General Family Medicine 02/24/22 Phong Matson MD [address] [place] [address] Endocrinology 05/15/24 documented as of this encounter
--- OUTSIDE RECORDS SUMMARY | 2024-08-03 09:31 | XMS_ITS | Encounter Summary ---
Author Organization [employer] Address [address] [facility] [address] [place] [address] Care Team Providers Care Sheeter Helper Name Role Phone Lizeth Bernard Primary Care Provider Phong Matson MD Unavailable [phone] Reason for Visit * Reason Onset Date Comments Appointment Request 07/03/2022 Encounter Details Date Type Department Care Team ([facility] st Contact Info) Description 07/03/2022 Telephone [facility] [address] [place] [address] Lizeth Bernard FNP [address] [place], [place] [phone] Appointment Request Social History Tobacco Use Types Packs/Day Years Used Date Smoking Tobacco: Never Assessed Comments Unknown Sex and Gender Information Value Date Recorded Sex Assigned at Female 04/28/2022 10:20 AM EDT Legal Sex Female 10:20 AM EDT Gender Identity Female 04/28/2022 10:20 AM EDT Sexual Orientation Straight 04/28/2022 10 :20 AM EDT documented as of this encounter Miscellaneous Notes * Telephone Encounter - Mookie Mares - 07/07/2022 12:35 PM EST Tc from pt requesting an Physical APPT due to work requiring her to get one done. Please contact pt [phone] Guinean Speaker * Telephone Encounter - Hardik Bravo - 07/03/2022 9:18 AM EST Tc from pt requesting an Physical APPT due to work requiring her to get one Please contact pt at [phone] documented in this encounter Plan of Treatment Not on file documented as of this encounter Visit Diagnoses Not on filedocumented in this encounter Care Teams Sheeter Helper Relationship Specialty Start Date End Date Lizeth Bernard FNP [address] [place] [phone] PCP - General Family Medicine 02/24/22 Phong Matson MD [address] [place] [phone] Endocrinology 05/15/24 documented as of this encounter
[2024-08-03 10:58] LABS: Anion Gap 9 (12-20); Blood Urea Nitrogen 6 mg/dL (9-16); Calcium 8.7 mg/dL (8.4-10.2); Carbon Dioxide 21 mmol/L (22-29); Chloride 108 mmol/L (96-108); Estimated Glomerular Filt Rate > 60; Glucose Random 82 mg/dL (60-115); Potassium 3.8 mmol/L (3.3-5.1); Sodium 134 mmol/L (135-145)
[2024-08-03 11:23] LABS: Free T4 (Free Thyroxine) 1.05 ng/dL (0.71-1.85); Thyroid Stimulating Hormone 1.24 uIU/mL (0.32-4.0)
== END 2024-08-03 09:12 | disposition home or self-care (01) ==
LOC: HO.LAB 09:11
PROVIDERS: PCP Physician Assistant; Visit Provider Internal Medicine Endocrinology, Diabetes & Metabolism
DX: C73 Malignant neoplasm of thyroid gland (principal); K11.20 Sialoadenitis, unspecified
CPT/HCPCS: 36415; 80048; 84439; 84443

== ENCOUNTER 2024-08-10 08:55 | Outpatient (REF) | payer MEDICAID, SELFPAY ==
--- OUTSIDE RECORDS SUMMARY | 2024-08-10 09:49 | XMS_ITS | Encounter Summary ---
Author Organization [employer] Address [address] [facility] [address] [place] [address] Care Team Providers Care News Editor Name Role Phone Lizeth Bernard VICTORINO Primary Care Provider [phone] Phong Matson MD Unavailable [phone] Reason for Visit * Reason Onset Date Comments Results 08/08/2024 Encounter Details Date Type Department Care Team ([facility] st Contact Info) Description 08/08/2024 Telephone [facility] [address] [place] [address] Lalita Garrison, HENRIQUE Results Social History Tobacco Use Types Packs/Day Years [...] encounter Miscellaneous Notes * Telephone Encounter - Lalita Garrison RN - 08/08/2024 10:47 AM EST Telephone call returned to patient in regards to below message. Patient verbalized understanding and denied having any further questions or concerns at this time. Patient to follow up as needed. * Telephone Encounter - Lalita Garrison RN - 08/08/2024 10:47 AM EST ----- Message from Lizeth Bernard sent at 08/07/2024 12:13 PM EST ----- Please call to let her know about incidental finding of low sodium on labs recently completed. Please ask her to repeat the test at her convenience. Thank you! documented in this encounter Plan of Treatment Not on file documented as of this encounter Visit Diagnoses Not on filedocumented in this encounter Additional Health Concerns Assessment Noted Time PHQ-9 Depression Total Score: 1 11/19/19 23 3:22 PM EDT documented as of this encounter Care Teams News Editor Relationship Specialty Start Date End Date Lizeth Bernard FNP [address] [place] [address] PCP - General Family Medicine 02/24/22 Phong Matson MD [address] [place] [address] [address] [place] [address] Endocrinology 05/15/24 documented as of this encounter
--- OUTSIDE RECORDS SUMMARY | 2024-08-10 09:49 | XMS_ITS | Encounter Summary ---
Author Organization [employer] Address 75 [facility] 7t [place] [address] Care Team Providers Care E Commerce Strategist Name Role Phone Lizeth Bernard Primary Care Provider [phone] Phong Matson MD Unavailable [phone] Reason for Visit * Reason Onset Date Comments Appointment Request 07/03/2022 Encounter Details Date Type Department Care Team ([facility] st Contact Info) Description 07/03/[address] [facility] MEDICINE [address] [place] [address] Lizeth Bernard FNP [address] [place], [place] [phone] Appointment Request Social History Tobacco Use Types [...] to get one done. Please contact pt [phone] Indonesian Speaker * Telephone Encounter - Hardik Bravo - 07/03/2022 9:18 AM EST Tc from pt requesting an Physical APPT due to work requiring her to get one Please contact pt at [phone] documented in this encounter Plan of Treatment Not on file documented as of this encounter Visit Diagnoses Not on filedocumented in this encounter Care Teams E Commerce Strategist Relationship Specialty Start Date End Date Lizeth Bernard FNP [address] [place] [phone] PCP - General Family Medicine 02/24/22 Phong Matson MD [address] [place] [address] Endocrinology 05/15/24 documented as of this encounter
--- OUTSIDE RECORDS SUMMARY | 2024-08-10 09:49 | XMS_ITS | Encounter Summary ---
Author Organization [employer] Address 75 [facility] 7t [place] [address] Care Team Providers Care Ironer Sock Name Role Phone Lizeth Bernard Primary Care Provider [phone] Phong Matson MD Unavailable [phone] Encounter Details Date Type Department Care Team ([facility] st Contact Info) Description 08/07/2024 Orders Only [facility] PEDS [address] [place], [place] [phone] Lizeth Bernard FNP 505 [place] [address] Hyponatremia (Primary Dx) Social History Tobacco Use Types Packs/Day Years [...] as of this encounter Plan of Treatment Scheduled Orders Name Type Priority Associated Diagnoses Orde r Schedule Basic Metabolic Panel Lab Routine Hyponatremia Expected: 08/07/2024 (Approximate), Expires: 08/07/2025 documented as of this encounter Visit Diagnoses Diagnosis Hyponatremia- Primary Hyposmolality and/or hyponatremia documented in this encounter Additional Health Concerns Assessment Noted Time PHQ-9 Depression Total Score: 1 11/19/19 23 3:22 PM EDT documented as of this encounter Care Teams Ironer Sock Relationship Specialty Start Date End Date Lizeth Bernard FNP [address] [place] [phone] PCP - General Family Medicine 02/24/22 Phong Matson MD [address] [place] [phone] Endocrinology 05/15/24 documented as of this encounter
--- OUTSIDE RECORDS SUMMARY | 2024-08-10 09:49 | XMS_ITS | Encounter Summary ---
Author Organization [employer] Address 75 [facility] 7t [place] [address] Care Team Providers Care Hl7 Developer Name Role Phone Lizeth Bernard Primary Care Provider [phone] Phong Matson MD Unavailable [phone] Reason for Visit * Reason Onset Date Comments Nurse Triage 10/07/2023 Encounter Details Date Type Department Care Team ([facility] st Contact Info) Description 10/07/2023 Telephone [facility] MEDICINE [address] [place] [address] Lizeth Bernard FNP [address] [place], [place] [phone] Nurse Triage Social History Tobacco Use Types [...] 10/07/2023 1:02 PM EDT Triage call with [employer] Invest[place] [id number] Pt reports salivary gland pain on left side. Pt has had this a month ago affecting the right side. Pt reports neg for fever, pain is on left side with some swelling noted left lower cheek/jaw and under left ear area. Pt reports a bitter taste with eating as well. [facility] [address] [place]. Pt agreed [...] salivary glands The caller accepted this outcome Greek speaker documented in this encounter Plan of Treatment Not on file documented as of this encounter Visit Diagnoses Not on filedocumented in this encounter Additional Health Concerns Assessment Noted Time PHQ-9 Depression Total Score: 1 11/19/19 23 3:22 PM EDT documented as of this encounter Care Teams Hl7 Developer Relationship Specialty Start Date End Date Lizeth Bernard FNP [address] [place] [address] PCP - General Family Medicine 02/24/22 Phong Matson MD [address] [place] [phone] Endocrinology 05/15/24 documented as of this encounter
--- OUTSIDE RECORDS SUMMARY | 2024-08-10 09:49 | XMS_ITS | Encounter Summary ---
Author Organization [employer] Address 75 [facility] 7t [place] [address] Care Team Providers Care Customer Experience Professional Name Role Phone Lizeth Bernard Primary Care Provider [phone] Phong Matson MD Unavailable [phone] Encounter Details Date Type Department Care Team ([facility] st Contact Info) Description 03/30/2023 Abstract [facility] MEDICINE [address] [place], [place] [phone] Lizeth Bernard FNP [address] [place] [address] Social History Tobacco Use Types Packs/Day Years [...] documented as of this encounter Care Teams Customer Experience Professional Relationship Specialty Start Date End Date Lizeth Bernard FNP [address] [place] [phone] PCP - General Family Medicine 02/24/22 Phong Matson MD [address] [place] [phone] Endocrinology 05/15/24 documented as of this encounter
--- OUTSIDE RECORDS SUMMARY | 2024-08-10 09:49 | XMS_ITS | Clinical Summary ---
Author Organization [employer] Address 75 [facility] 7t [place] [address] Care Team Providers Care Analytical Scientist Name Role Phone PamellaLizeth lawrence VICTORINO Primary Care Provider [phone] Phong Matson MD Unavailable [phone] Allergies Active Allergy Reactions Criticality Noted [...] Jan 2024 - Dr. Fierro at ENT [facility]. Suspected possibly d/t viral injury exacerbated [...] (2023): Pap: NILM HPV neg 11/06/22 by [facility] Talia Yao Acne vulgaris 11/19/2022 Assessment & Plan (02/18/2023 6:43 PM EDT): ?? Inflammatory papules and pustules on face, back and chest clear ?? Tretinoin 0.025% cream sent to [facility] ?? Doxycycline on hold given upcoming [...] Biopsied by IR 03/07/2019 with benign cytology ([place] Category II). Subsequent R hemithyroidectomy d/t compressive [...] Biopsied by IR 03/07/2019 with benign cytology ([place] Category II). ?? Subsequent R hemithyroidectomy d/t [...] Biopsied by IR 03/07/2019 with benign cytology ([place] Category II). ?? Subsequent R hemithyroidectomy d/t [...] goal: normal range <2.5 during Following with [facility] End[facility] Lab Results Component Value Date TSH 1.51 04/28/2024 History of total thyroidectomy 12/12/2020 Sickle cell trait 08/14/2016 Dyschromia 12/02/2011 Comments Yes Encounters Date Type Department Care Team Description 08/08/2024 Telephone [facility] [address] [place], [place] [phone] Lalita Garrison RN Results 08/07/2024 Orders Only [facility] [address] [place] [address] Lizeth Bernard FNP Hyponatremia (Primary Dx) 08/03/2024 Orders Only GENERIC EXTERNAL DATA DEPARTMENT Provider, Generic External Data 05/13/2024 10:00 AM EST Office Visit [facility] [address] [place] [address] Lizeth Bernard FNP Postoperative hypothyroidism (Primary Dx); Healthcare maintenance; History of anemia; Malignant tumor of thyroid gland (CMS/HCC); Sialadenitis 05/13/2024 Travel 05/12/2024 Telephone [facility] [address] [place], [place] [phone] Sridhar Prince [place] Chart Prep from Last 3 Months Immunizations Name Administration Dates Next Due DTaP 02/12/2006, 7,12/23/1993,03/18,01/15/1993,1992 HPV, Quadrivalent 09/17/2009,06/05/2009,03/22/20 09 Hep B, Adolescent or Pediatric 02/15/1994,1993,08/20/1993 Hib (HbOC) 12/23/1993, 3,01/15/1993,11/14 IPV 10/24/1996, 4,01/15/1993,11/14 Influenza Injectable [...] your housing situation today? I have tonie christian 05/13/[address] you li [...] Procedure Name Priority Date/Time Associated Diagnosis Comments TSH Routine 08/03/2024 9:24 AM EST T4, FREE Routine 08/03/2024 9:24 AM EST BASIC METABOLIC PANEL Routine 08/03/2024 9:24 AM EST Sialadenitis POCT HEMOGLOBIN Routine 05/13/2024 10:49 AM EST History of anemia HPV MRNA E6/E7 REFLEX TO HPV 16, 18/45 Routine 11/06/2022 2:55 PM EDT PAP SMEAR Routine 11/06/2022 2:55 PM EDT ZZZ HISTORICAL HIV AB/AG Routine 01/09/2020 9:10 AM EDT from Last 3 Months or Most Recently Relevant to Health Maintenance Results * TSH (08/03/2024 9:24 AM EST) Thyroid Stimulating Hormone 1.24 0.32 - 4.0 uIU/mL [facility] Comment:TSH 3rd Generation ( [facility]) 08/03/2024 9:24 AM EST 08/03/2024 9:27 AM EST us Generic External Data Provider LAB BLOOD ORDERAB LES Final Result Performing Organization Address City/[facility]/ZIP Co de Phone Number [facility] [address] [place] [phone] * T4, Free (08/03/2024 9:24 AM EST) Free T4 (Free Thyroxine) 1.05 0.71 - 1.85 ng/dL [facility] 08/03/2024 9:24 AM EST 08/03/2024 9:27 AM EST Generic External Data Provider LAB BLOOD ORDERAB LES Final Result Performing Organization Address [facility] Co de Phone Number [facility] [address] [place] [phone] * (ABNORMAL) Basic Metabolic Panel (08/03/2024 9:24 AM EST) Sodium 134(L) 135 - 145 mmol/L [facility] Potassium 3.8 3.3 - 5.1 mmol/L [facility] Chloride 108 96 - 108 mmol/L [facility] Carbon Dioxide 21(L) 22 - 29 mmol/L [facility] Anion Gap 9(L) 12 - 20 [facility] Urea Nitrogen (BUN) 6(L) 9 - 16 mg/dL [facility] Creatinine, Serum 0.59 0.5 - 1.4 mg/dL [facility] Estimated Glomerular Filt Rate >60 [facility] Comment:Chronic Kidney Disea se: Estimated GFR < 60 mL/min/1.55d4Bqoppz Kidney Disease: Estimated GFR < 15 mL/min/1.73m2 Glucose 82 60 - 115 mg/dL [facility] Calcium 8.7 8.4 - 10.2 mg/dL [facility] Blood Venous blood specimen / Unknown 08/03/2024 9:24 AM EST 08/03/2024 9:27 AM EST us Lizeth Bernard LEAD PERSON LAB BLOOD ORDERABLES Final Res ult [facility] [address] [place] [phone] [phone] * (ABNORMAL) POCT hemoglobin docked device (05/13/2024 10:49 AM EST) Hemoglobin 11.4(A) 12.0 - 15.0 QC Media Lot # Comment:[id number] Lot# Expiration Date Comment:07/01/2025 Blood 05/13/2024 10:4 9 AM EST Lizeth Phalhoward LEAD PERSON POINT OF CARE TEST ENTER/EDIT ORDERABLES Final Result * HPV mRNA E6/E7 w/Reflex to HPV Genotypes 16, 18/45 (11/06/2022 2:55 PM EDT) HPV nRNA E6/E7 Not Detected Not Detected [facility] Comment:Methodology: Transcr iption-Mediated AmplificationThis assay detects E6/E7 viral messenger RNA (mRNA) from 14high-risk HPV types (16,18,31,33,35,39,45,51,52,56,58,59,66,68).Cervical sources are required for HPV testing.If a vaginal source from a patient who has had atotal hysterectomy with removal of cervix wassubmitted, please contact the testing laboratoryfor alternative testing options.For additional information, please refer tohttp://education.[employer]/faq/UCX448q8(This link if provided for information/educational purposes only.)THIS TEST WAS PERFORMED AT:[email or web address] [place] [phone] HAYWARD MD HPV mRNA E6/E7 TNP [facility] HPV 16 RNA TNP [facility] HPV 18/45 RNA [facility] 11/06/2022 2:55 PM EDT 11/07/2022 9:18 AM EDT [facility] External Provider LAB CYT OLOGY ORDERABLES Final Result [facility] [address] [place] [address] [phone] * Pap Smear (11/06/2022 2:55 PM EDT) 11/06/2022 2:55 PM EDT 11/07/2022 9:15 AM EDT Narrative [facility] - 11/12/2022 3:14 PM EDT ----- ------- Name: Meredith Mcbride ?Age/Sex: 32/F ? : 1990 Unit#: [id number] ?? Attend Dr: Talia Yao CNM ?Re11/06/22 ?Status: DEP REF ? Location: HO.LNP ?Disch: ? ----- ------- SPEC : [id number] ? RECD: 11/07/22 ? STATUS: ??SOUT ? REQ NUM: [id number] ? SUMANTH: 11/06/22 ? SUBM DR: Talia Yao CNM ? ENTERED: ??11/07/22 ?SP TYPE: Pap Smr ?OTHR DR: Lizeth Bernard ? ORDERED: ??Pap Smear ? Interpretation ?? Satisfactory for evaluation. ?? Negative for intraepithelial lesion or malignancy. ?HPV mRNA E6/E7: ?NOT DETECTED ? This assay detects E6/E7 viral messenger RNA (mRNA) from 14 high-risk HPV types (16, 18, ?? 31, 33, 35, 39, 45, 51, 52, 56, 58, 59, 66, 68) ?? HPV testing performed by [facility], [place], [place]. ??See reference laboratory ?? pion of the EMR for entire report. ?Clinical Information LMP: 10/30/22 Previous PAP test: 2020, WNL ? Material Received ?? ThinPrep-Cervical Copies To: ?? Talia Yoa CNM ?? [address] ?? [place] [address] ?? [phone] ?? Lizeth Bernard ?? [address] ?? [place] [address] ?? [phone] ----- ------- Signed (signature on file) HAJA Meadows ([facility]) 11/12/22 1514 ? ----- ------- ? END OF REPORT ? [facility] External Provider LAB CYT OLOGY ORDERABLES Final Result [facility] [address] [place] [phone] * HIV AB/AG (01/09/2020 9:10 AM EDT) [facility] HIV AG/AB NONREACTIVE NR FOUNDATI ON [...] detection of this assay. ?? The [employer] HIV Ag/Ab Combo assay result and supplemental assay results should be interpreted in conjunction with the patient's clinical presentation, history and other laboratory results. ??If the results are inconsistent with clinical evidence, additional testing is suggested to confirm the result. 01/09/2020 9:10 AM EDT us Allie Gaines NP HISTORICAL/NON ORDERABLE LABS Fi nal Result [facility] [address] from Last 3 Months or Most Recently Relevant to Health Maintenance Insurance * Guarantor: Meredith Mcbride Account Type Relation to Patient Date of Phone Billing Address Personal/Family Self [address] [place] [place] Care Teams Analytical Scientist Relationship Specialty Start Date End Date Lizeth Bernard FNP [address] [place] [address] PCP - General Family Medicine 02/24/22 Phong Matson MD [address] [place] [address] Endocrinology 05/15/24
--- OUTSIDE RECORDS SUMMARY | 2024-08-10 09:49 | XMS_ITS | Encounter Summary ---
Author Organization [employer] Address [address] [facility] [address] 7t [place] [address] Care Team Providers Care Licensed Psychologist Manager Name Role Phone Lizeth Bernard VICTORINO Primary Care Provider [phone] Phong Matson MD Unavailable [phone] Encounter Details Date Type Department Care Team (Late st Contact Info) Description 08/03/2024 Orders Only GENERIC EXTERNAL DATA DEPARTMENT Provider, Generic External Data Social History Tobacco Use Types Packs/Day Years [...] T4, FREE Routine 08/03/2024 9:24 AM EST documented in this encounter Results * TSH (08/03/2024 9:24 AM EST) Thyroid Stimulating Hormone 1.24 0.32 - 4.0 uIU/mL [facility] Comment:TSH 3rd Generation ( [facility]) 08/03/2024 9:24 AM EST 08/03/2024 9:27 AM EST us Generic External Data Provider LAB BLOOD ORDERAB LES Final Result Performing Organization Address [facility] Co de Phone Number [facility] [address] [place] [phone] * T4, Free (08/03/2024 9:24 AM EST) Free T4 (Free Thyroxine) 1.05 0.71 - 1.85 ng/dL [facility] 08/03/2024 9:24 AM EST 08/03/2024 9:27 AM EST us Generic External Data Provider LAB BLOOD ORDERAB LES Final Result Performing Organization Address [facility] Co de Phone Number [facility] [address] [place] [phone] documented in this encounter Visit Diagnoses Not on filedocumented in this encounter Additional Health Concerns Assessment Noted Time PHQ-9 Depression Total Score: 1 11/19/19 23 3:22 PM EDT documented as of this encounter Care Teams Licensed Psychologist Manager Relationship Specialty Start Date End Date Lizeth Bernard FNP [address] [place] [phone] PCP - General Family Medicine 02/24/22 Phong Matson MD [address] [place] [phone] Endocrinology 05/15/24 documented as of this encounter
[2024-08-10 11:20] LABS: Anion Gap 10 (12-20); Blood Urea Nitrogen 7 mg/dL (9-16); Calcium 8.7 mg/dL (8.4-10.2); Carbon Dioxide 22 mmol/L (22-29); Chloride 109 mmol/L (96-108); Estimated Glomerular Filt Rate > 60; Glucose Random 81 mg/dL (60-115); Potassium 4.1 mmol/L (3.3-5.1); Sodium 137 mmol/L (135-145)
== END 2024-08-10 08:56 | disposition home or self-care (01) ==
LOC: HO.LAB 08:55
PROVIDERS: PCP Registered Nurse; Visit Provider Registered Nurse
DX: E87.1 Hypo-osmolality and hyponatremia (principal)
CPT/HCPCS: 36415; 80048

== ENCOUNTER 2024-08-22 12:35 | Outpatient (AMB) | payer MEDICAID, SELFPAY ==
[2024-08-22 12:55] VITALS: BP 138/76; PULSE 72; O2SAT 93; BMI 35.2
--- NOTE | 2024-08-22 12:55 | A.OFFVIS_ITS ---
Vital Signs 3 08/22/24 12:55 Height 5 ft Weight 180 lb 1.883 oz BMI 35.2 BP 138/76 Blood Pressure Location Lt brachial Position Sitting Pulse 72 Pulse Source Pulse Oximeter Pulse Oximetry (%) 93 Oxygen Delivery Method Room Air Intake Visit Reasons: f/u hypothyroidism /thyroid cancer Intake Note: Patient present today for hypothyroidism /thyroid cancer follow up visit. 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 Accompanied by: Self / Same As Patient Allergies No Known Allergies [No Known Allergies*] Allergy (Verified 08/22/24 12:59) Medication List - Last Reconciled 08/22/24 by Gertrude Sandoval MD cholecalciferol (vitamin D3) 2,000 units PO DAILY doxylamine succinate (Nighttime Sleep-Aid (doxylamine)) 25 mg PO BEDTIME PRN ibuprofen 400 mg PO Q6H PRN levothyroxine 125 mcg PO DAILY magnesium 250 mg PO DAILY multivitamin (Daily Multi-Vitamin tablet) 1 tab PO DAILY no.167-folic acid-dha 400 mcg- 25 mg (One-A-Day ) tabs PO pyridoxine (vitamin B6) (Vitamin B-6) 25 mg PO TID PRN HPI Comments Details: 33-year-old female coming in today for follow up of 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 Currently 37 weeks History of thyroid cancer detail 2019: Diagnosed with multinodular thyroid with thyroid ultrasound revealing a large right midpole nodule measuring 4.1 cm 03/07/2019: FNA biopsy of the nodule was benign Bokeelia category 2 Was subsequently referred to Dr[address] Clint Cooper at [facility] for right hemithyroidectomy due to compressive symptoms. 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 11/06/2020: Completion thyroidectomy with the official surgical pathology benign 05/01/2021: Remnant ablation with 30.2 mCi of I 131 radioactive iodine. TSH was 76.3, unfortunately no TG or TG antibodies were drawn. 05/10/2021: Whole-body scan revealed intense foci of uptake within the neck, otherwise only physiologic uptake 08/22/2021: TSH 0.11, TG undetectable, negative TG antibody 11/26/2021: TSH 0.29, TG less than 0.1, TG antibody negative 12/04/21: Ultrasound of the neck showed bilateral normal-appearing lymph nodes. 10/24/2022: Whole-body scan done via thyroid hormone withdrawal revealed increased radiotracer uptake in the upper neck in the region of the right thyroidectomy bed and along the thyroglossal duct. Uptake was otherwise physiologic. 10/16/2022: TSH 33.95, TG 0.9, TG antibody negative. 10/31/2022: Ultrasound of the neck revealed multiple abnormal appearing enlarged lymph nodes bilaterally. A right level 1B lymph node with absent hilum and round shape measuring 7 x 5 X 6 mm, a right level 3 lymph node with absent hilum measuring 1.4 X 0.3 X 0.8 cm. On the left side level 3, with a abnormal appearance with absent fatty hilum measuring 1.6 X 0.2 X 0.7 cm. 12/04/2022: Ultrasound by Dr. Albrecht showed a normal-appearing 0.7 cm lymph node in the right neck at level 1B. No FNA was completed based on size. Decision was made to proceed with high dose 150 mCi of radioactive iodine treatment. 03/17/2023: Underwent radioactive iodine treatment with 152 mCi of I 131. Done with Thyrogen. 03/27/2023: Whole-body scan revealed persistent residual radioactive iodine activity within the neck suggestive of residual thyroid tissue disease. Faint focal increased uptake in the anterior left hemipelvis possibly concerning for metastatic disease. 07/23/2023: Saw Dr. Zambrano at [facility] for 2nd opinion who also performed in office neck ultrasound which did not identify any abnormal lymph nodes. 09/23/2023: CT of the pelvis with contrast did not identify any metastatic lesion in the pelvis. 12/08/2023: Soft tissue neck CT identified chronic postoperative changes of thyroidectomy. No abnormal mass or nodular enhancement, no pathogen logically enlarged lymph nodes. Interval history currently 37 weeks 08/22/24 with plan for scheduled c section September 05 2024 This is her 3 rd pregancy , has a10 year old and 8 year old . currently on levothyroxine 125 mcg daily Denies any compressive symptoms. Denies any symptoms of hypothyroidism or hyperthyroidism. Physical exam General: sitting comfortably in no acute distress HEENT: normocephalic/atraumatic Neck: supple, no palpable lymph nodes Cardiac: normal heart sounds Pulm: normal breath sounds B/L, no added breath sounds Abd: gravid abdomen Extremities: no edema, no signs of myxedema Neuro: AAO x3, Speech: normal, no facial droop, moving all 4 extremities Laboratory Tests 12/03/20 02/19/21 05/01/21 15:03 15:25 09:25 TSH 0.20 L 0.61 76.30 H Free T4 1.30 Thyroglobulin 0.2 L 0.2 L Thyroglobulin Antibody 3 H 2 H <1 08/22/21 11/26/21 08/12/22 15:36 11:07 07:47 TSH 0.11 L 0.29 L 0.06 L Free T4 1.01 1.16 1.19 Thyroglobulin <0.1 L <0.1 L <0.1 Thyroglobulin Antibody <1 <1 <1 10/16/22 10/21/22 11/12/22 07:59 10:21 15:09 TSH 33.95 H 53.76 H 0.94 Free T4 < 0.42 L < 0.42 L 1.41 Thyroglobulin 0.9 H 0.1 H Thyroglobulin Antibody <1 <1 12/16/22 05/25/23 09/23/23 08:56 10:44 08:20 TSH 0.04 L 0.17 L 0.07 L Free T4 1.57 1.16 1.33 Thyroglobulin <0.1 <0.1 Thyroglobulin Antibody <1 <1 11/03/23 01/11/24 01/18/24 07:59 09:05 10:30 TSH 0.14 L 2.10 2.58 Free T4 1.23 1.03 0.97 Thyroglobulin Thyroglobulin Antibody 02/15/24 03/21/24 04/28/24 10:16 09:53 12:20 TSH 4.09 H 1.88 1.51 Free T4 1.03 1.19 1.07 Thyroglobulin Thyroglobulin Antibody 06/09/24 08/03/24 12:28 09:24 TSH 0.60 1.24 Free T4 0.97 1.[address] SOFT TISSUE NECK WITH CONTRAST 12/08/23 CLINICAL INFORMATION: Malignant tumor of the thyroid. COMPARISON: Soft tissue neck ultrasound 12/04/2022. TECHNIQUE: Following the intravenous administration of 60 mL of Omnipaque 350 intravenous contrast, helical imaging was performed in the axial plane with generation of coronal and sagittal reformatted images. This CT examination was performed using dose optimization techniques as appropriate, variously including the following: *Automated exposure control *Adjustment of mA and/or kV according to patient size (this includes techniques or standardized protocols for targeted exams where dose is matched to indication/reason for exam; i.e. extremities or head) *Use of iterative reconstruction technique DLP: 462 mGy-cm FINDINGS: There are chronic postoperative changes of a thyroid resection. The remainder of the visualized visceral soft tissues are unremarkable. There is no abnormal mass or nodular enhancement at the thyroidectomy bed. No pathologically enlarged cervical lymph nodes. No mediastinal or axillary adenopathy is visualized within the [id number] of this examination. Pharyngeal mucosal spaces are symmetric. Parapharyngeal and retromaxillary fat is preserved. Rug Hooker spaces are symmetric. Parotid and submandibular glands are normal. The tongue base and epiglottis are normal. Preepiglottic fat is preserved. Glottic and subglottic airways are patent. Lung apices are clear. Aortic arch apex is normal. Cervical carotid and vertebral arteries are patent. Internal jugular veins fill symmetrically. No acute osseous finding. Specific no worrisome lytic or blastic osseous lesion. No spinal canal compromise. The skull base is intact. No mastoid or middle ear effusion. No active paranasal sinus disease. Limited visualization of intracranial anatomy reveals no abnormal finding. CT/CT soft tissue neck w IV con IMPRESSION: There are chronic postoperative changes of a thyroid resection. Otherwise unremarkable examination. No abnormal mass or nodular enhancement at the thyroidectomy bed. No pathologically enlarged cervical lymph nodes. CT PELVIS WITH CONTRAST 09/23/23 CLINICAL INFORMATION: Malignant neoplasm of thyroid gland, additional notes/special instructions, thyroid cancer with uptake on total body scan in pelvis. Please correlate with CT scan. COMPARISON: Pelvic ultrasound 11/26/2021. TECHNIQUE: Helical scanning was performed with submillimeter collimation through the pelvis with the use of oral contrast and during bolus intravenous injection of 85 mL of Omnipaque 350 intravenous contrast. Sagittal and coronal multiplanar 2-D reconstructions were obtained. This CT examination was performed using dose optimization techniques as appropriate, variously including the following: *Automated exposure control *Adjustment of mA and/or kV according to patient size (this includes techniques or standardized protocols for targeted exams where dose is matched to indication/reason for exam; i.e. extremities or head) *Use of iterative reconstruction technique DLP: 436 mGy-cm FINDINGS: PELVIS: Uterus is anteverted. There is a slightly lobular border. And IUD which has been seen on prior pelvic ultrasounds is not seen on the current study. A small 1.5 cm right ovarian cyst is present. No free fluid is present in the cul-de-sac. No retroperitoneal adenopathy. The visualized bowel is unremarkable. OSSEOUS STRUCTURES: No abnormalities detected in the visualized osseous structures. CT/CT pelvis w IV con IMPRESSION: 1. No evidence of metastatic disease in the pelvis. 2. Incidental note made of a small 1.5 cm right ovarian cyst. 3. An IUD is not seen on the current study. 4. Slightly lobular uterine border could represent fibroids. US Head and Neck: 10/31/2022 THYROID BED: Prior thyroidectomy. No residual thyroid tissue demonstrated in the thyroid bed. No cystic or solid nodules demonstrated in the thyroid bed. There is a new midline level 1A lymph node that measures 6 x 3 x 7 mm in sagittal AP and transverse dimension. This is normal in size and demonstrate normal ultrasound morphology and flow. There are 7 lymph nodes identified in the right neck. There is a level 1A lymph node that is normal appearing and stable. There is a newly appreciated 1B lymph node that measures 7 x 5 x 6 mm and is normal in size. This demonstrates abnormal morphology with absent fatty hilum and round shape. There is a level 2 lymph node that has normal ultrasound morphology and is normal in size but slightly increased in size compared to prior prior exam. There is a new level 3 lymph node that is upper normal in size measuring 1.6 x 0.3 x 0.9 cm and has normal ultrasound morphology. There is a newly appreciated right level 3 lymph node that is upper normal in size measuring 1.4 x 0.3 x 0.8 cm. This has abnormal morphology with absent fatty hilum. There is a newly appreciated right level 4 lymph node that is upper normal in size measuring 1.1 x 0.2 x 0.9 cm and has normal ultrasound morphology. There is a newly appreciated slightly enlarged right level 5A lymph node that measures 1.4 x 0.3 x 1.2 cm and has normal ultrasound morphology. There are 2 newly appreciated left cervical lymph nodes. There is a level 1 lymph node that is upper normal in size measuring 0.8 x 0.7 x 1.5 cm and has normal ultrasound morphology. There is an upper normal level 3 lymph node that measures 1.6 x 0.2 x 0.7 cm and has abnormal ultrasound morphology with absent fatty hilum. There are 2 adjacent level 5A normal-appearing lymph nodes that was measured as one lymph node on prior exam. These are normal in size and have normal ultrasound morphology. US SOFT TISSUE NECK 12/04/21 CLINICAL INFORMATION: Personal history of malignant neoplasm of thyroid. COMPARISON: Ultrasound soft tissue head/neck thyroid dated 01/23/2020 and 02/21/2019. TECHNIQUE: Ultrasound of the neck soft tissues is performed with high- frequency donovan-scale imaging and color Doppler. FINDINGS: THYROID BED: Prior thyroidectomy. No residual thyroid tissue demonstrated in the thyroid bed. No cystic or solid nodules demonstrated in the thyroid bed. RIGHT NECK SOFT TISSUES: Scattered architecturally normal nodes are present. The nodes show normal fatty hilus, normal cortical thickness, and no cystic change or calcification. No abnormal color flow. The largest nodes are as follows: Level Ib: 0.56 x 0.31 x 0.51 cm. Normal jorge luis architecture. Level Ib: 0.75 x 0.22 x 0.88 cm. Normal jorge luis architecture. Level Ib: 0.93 x 0.64 x 1.1 cm. Normal jorge luis architecture. LEFT NECK SOFT TISSUES: Scattered architecturally normal nodes are present. The nodes show normal fatty hilus, normal cortical thickness, and no cystic change or calcification. No abnormal color flow. The largest nodes are as follows: Level 2: 1.3 x 0.44 x 0.83 cm. Normal jorge luis architecture. Level 2: 0.92 x 0.27 x 0.74 cm. Normal jorge luis architecture. Level 2: 0.80 x 0.31 x 0.52 cm. Normal jorge luis architecture. Level 2: 0.60 x 0.38 x 0.76 cm. Normal jorge luis architecture. Level 2: 1.9 x 0.35 x 1.1 cm. Normal jorge luis architecture. US/US soft tiss head and/or neck IMPRESSION: 1. Benign bilateral neck lymph nodes most of them measuring less than 1 cm exophytic with the largest left level 2 lymph node measuring 1.9 cm. It has benign ultrasound characteristics. 2. If clinically indicated, further evaluation of the neck soft tissues and nodes may be performed with CT soft tissue neck with intravenous contrast. PFSH Medical History Local recurrence of cancer of thyroid gland Acne History of thyroid cancer Hypothyroidism Thyroid cancer Vitamin D deficiency Thyroid nodule Surgical History Hx of total thyroidectomy Hx of knee surgery Hx of section Family History Father Vitamin D deficiency Mother Depression Hypertension Water retention Thyroid nodule Paternal Grandfather Colon cancer Social History Alcohol intake: never Patient Tobacco Use Status: Never used Tobacco Sexual orientation: Straight/Heterosexual Gender identity: Female Female Reproductive History Menstrual Age of Menarche: 13 Physical Exam Vital Signs: Last Vital Signs Pulse 72 08/22/24 12:55 BP 138/76 08/22/24 12:55 Pulse Ox 93 08/22/24 12:55 Oxygen Delivery Method Room Air 08/22/24 12:55 BMI result Body Mass Index 35.2 Assessment & Plan Assessment & Plan (1) History of thyroid cancer: Code(s): Z85.850 - Personal history of malignant neoplasm of thyroid Category: Medical Plan: 33-year-old female coming in today for follow up of 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 Currently 37 weeks . Her last tumor markers were checked in August 2023, she is due for repeat thyroglobulin levels. I will order these. At this time she is scheduled for to be done on September 05, prior to we were lowering the dose of her levothyroxine and she was on 100 mcg of levothyroxine prior to which was then uptitrated to 125 mcg daily which is her current dose. Her most recent TSH level done 08/03/2024 was at goal less than 2.5 at 1.24. At this time I will continue her on the same dose of levothyroxine but I have told her that after her on September 05, to switch to levothyroxine 100 mcg daily and then do blood work 6 weeks after around October 16. We gave her written instructions for all of. Plan: -continue levothyroxine 125 mcg daily, after switch to levothyroxine 100 mcg daily -TSH, free T4, TG and TG antibody levels to be done 6 weeks post and dose change -ultrasound of the neck ordered, she can do it any time prior to her follow up appointment in 3 months -follow up in 3 months (2) Hypothyroidism: Code(s): E03.9 - Hypothyroidism, unspecified Category: Medical Qualifiers: Hypothyroidism type: postoperative Qualified Code(s): E89.0 - Postprocedural hypothyroidism Plan: Currently on levothyroxine 125 mcg daily at 37 weeks , scheduled for a September 05. Last TSH from 08/03/2024 was at 1.24 which is within goal TSH of less than 2.5 in . She did have a structural recurrence however she is status post radioactive iodine treatment with 152 mCi in February 2023. I would aim for TSH between 0.1-0.5, given structural recurrence and at this point we are going to continue her for monitoring for response to treatment. Her unstimulated thyroglobulin from August 2023 was undetectable and stimulated thyroglobulin from February 2024 was less than 1, which are both reassuring, however I would like to aim for TSH between 0.1-0.52 lb indeterminate response to therapy. Plan: -continue levothyroxine 125 mcg daily, after switch to levothyroxine 100 mcg daily -TSH, free T4, TG and TG antibody levels to be done 6 weeks post and dose change Plan I spent 30 minutes in reviewing the record, seeing the patient and documenting in the medical record. Orders: Orders 2 Thyroid Stimulating Hormone 6 Weeks E03.9 - Hypothyroidism, unspecified, Z85.850 - Personal history of malignant neoplasm of thyroid Free T4 (Free Thyroxine) 6 Weeks E03.9 - Hypothyroidism, unspecified, Z85.850 - Personal history of malignant neoplasm of thyroid Thyroglobulin 6 Weeks E03.9 - Hypothyroidism, unspecified, Z85.850 - Personal history of malignant neoplasm of thyroid Thyroglobulin Antibodies 6 Weeks E03.9 - Hypothyroidism, unspecified, Z85.850 - Personal history of malignant neoplasm of thyroid Thyroglobulin Tumor Marker 6 Weeks E03.9 - Hypothyroidism, unspecified, Z85.850 - Personal history of malignant neoplasm of thyroid US soft tiss head and/or neck Today Z85.850 - Personal history of malignant neoplasm of thyroid Medications: New 2 levothyroxine 100 mcg PO DAILY 90 tabs 4RF Discontinued 2 levothyroxine Discontinued Reason: Patient Completed Course 125 mcg PO DAILY 90 tabs 1RF Patient Instructions: Continue levothyroxine 125 mcg daily up until the morning of your c section Then switch to levothyroxine 100 mcg daily Do blood work in 6 weeks post dose change, around 17 October 2024 do neck ultrasound , no urgency , you can schedule this anytime before your next appointment with me Follow up in 3 months Coding Level of Care Code Est Pt Level 4 (57960) Complex EM visit Add On G2211 Diagnoses History of thyroid cancer Z85.850 Postoperative hypothyroidism E89.0 Hypothyroidism type: postoperative Time Spent (min) 30
--- OUTSIDE RECORDS SUMMARY | 2024-08-22 14:16 | XMS_ITS | Data Portability ---
Author Organization [place] - [facility], Allergy Address [address] [place] [id number] Assessment Encounter Date Assessment Date Assessment LastModified [...] Address Organization Details Recorded Time Acute sialoadenitis [id number] Active 2023 ALBERTINA VELEZ MD [address], [id number] - [facility] 11:55:00 Problem Notes None recorded. Medical Equipment [...] Updated DateTime 02/18/2024 152.4 cm 29.7 kg/m2 78179.04 g Talia Cohen [place] - [facility] 02/18/2024 11:33:01 Social History None recorded. Functional Status None recorded. Mental Status None recorded. Family History Nothing Reported. Medical History No medical history recorded. Gynecological HistoryNo gynecological history recorded. Obstetrics History GPAL:G 0 P 0 0 0 0 Past Encounters Encounter ID Performer Location Encounter Start Date Encounter Closed Date Diagnosis/Indication Diagnosis SNOMED-CT Code Diagnosis ICD10 Code Diagnosis Note [id number] ALBERTINA VELEZ MD [facility] [address] [id number] 02/18/2024 10:40:20 02/18/2024 11:57:51 Acute sialoadenitis 870531801 K11.21 Health Concerns Section Related Observation LastModified by Organization Detai ls LastModified Time None Recorded Concern Status LastModified by Organization Details LastModified Time None Recorded Advance Directives Directive None Recorded Payers Encounter Date Sequence Insurance Name Policy Number Policy Hutchins Covered Member ID Hutchins Member ID Guarantor Name 02/18/2024 1 [place] [facility] Meredith Hammer [id number] Meredith Hammer Notes Date Note Type Note Provider Name and Address Organization Details Recorded Time 02/18/2024 text/html kazakh - ipadsw elling of bilateral parotidonset around uration a few hours at a timemade worse with eatingfrequency about every other day initially through October, but none recentlyassociated with a sour tasteteeth are in good conditionhad radioactive iodine for thyroid, completed 2020, and 2022 ALBERTINA VELEZ MD [address] [place] [address], [phone], [place] - [facility] 02/18/2024 11:58:39 OBGyn Episode No OBEpisode recorded.
== END 2024-08-22 13:25 | disposition home or self-care (01) ==
PROVIDERS: PCP Physician Assistant; Visit Provider Student in an Organized Health Care Education/Training Program
DX: Z85.850 Personal history of malignant neoplasm of thyroid (principal); E89.0 Postprocedural hypothyroidism
CPT/HCPCS: 99214

== ENCOUNTER → 2024-08-22 12:35 | Outpatient (BNVA) | payer MEDICAID, SELFPAY | PROVIDERS: PCP Physician Assistant; Visit Provider Student in an Organized Health Care Education/Training Program | DX: E89.0 Postprocedural hypothyroidism (principal); Z85.850 Personal history of malignant neoplasm of thyroid | CPT/HCPCS: 99212 ==

== ENCOUNTER 2024-10-25 12:43 | Outpatient (REF) | payer MEDICAID, SELFPAY ==
[2024-10-25 14:18] LABS: Free T4 (Free Thyroxine) 1.09 ng/dL (0.71-1.85); Thyroid Stimulating Hormone 0.58 uIU/mL (0.32-4.0)
--- OUTSIDE RECORDS SUMMARY | 2024-10-25 14:35 | XMS_ITS | Clinical Summary ---
Author Organization [employer] Address 75 [facility] 7t [place] [address] Care Team Providers Care Material Handler 1St Shift Name Role Phone PamellaLizeth lawrence VICTORINO Primary Care Provider [phone] Phong Matson MD Unavailable [phone] Allergies Active Allergy Reactions Criticality Noted Date Comments Lactose 12/04/2022 Medications acetaminophen (Tylenol 8 Hour) 650 MG ER tablet Take 1 tablet by mouth every 8 (eight) hours. 2 Active ibuprofen 600 MG tablet TOME GISEL TABLETA CADA OCHO HORAS CUANDO SEA NECESARIO 2 Active Vit-Fe Fumarate-FA (M- Plus) 27-1 MG tablet TOME GISEL TABLETA [...] Jan 2024 - Dr. Fierro at ENT [facility]. Suspected possibly d/t viral injury exacerbated [...] (2023): Pap: NILM HPV neg 11/06/[address] [facility] GEOSPATIAL IMAGERY INTELLIGENCE ANALYST Talia Yao Acne vulgaris 11/19/2022 Assessment & Plan (02/18/2023 6:43 PM EDT): ?? Inflammatory papules and pustules on face, back and chest clear ?? Tretinoin 0.025% cream sent to [facility] ?? Doxycycline on hold given [...] Biopsied by IR 03/07/2019 with benign cytology ([place] Category II). Subsequent R hemithyroidectomy d/t compressive [...] Biopsied by IR 03/07/2019 with benign cytology ([place] Category II). ?? Subsequent R hemithyroidectomy d/t [...] Biopsied by IR 03/07/2019 with benign cytology ([place] Category II). ?? Subsequent R hemithyroidectomy d/t [...] goal: normal range <2.5 during Following with [facility] Endo Lab Results Component Value Date TSH 1.51 04/28/2024 History of total thyroidectomy 12/12/2020 Sickle cell trait 08/14/2016 Dyschromia 12/02/2011 Encounters Date Type Department Care Team Description 10/25/2024 Orders Only GENERIC EXTERNAL DATA DEPARTMENT Provider, Generic External Data 10/21/2024 Patient Outreach [address] [address] Lizeth Bernard TILE PRESSER Care Coordination ([facility]/NAVEEN Marina- Follow up call) 10/20/2024 Telephone [facility] [address] [place] [address] Lizeth Bernard TILE PRESSER May recall 10/20/2024 Travel 10/07/[address] [address] Lizeth Bernard TILE PRESSER Care Management ([facility] TC #1-lvm) 10/07/2024 Patient Outreach [address] [address] Lizeth Bernard FNP Care Coordination ([facility]/NAVEEN Marina#1- Follow up call-Unable to LVM) 09/23/[address] [address] Lizeth Bernard TILE PRESSER Care Management ([facility] enrollment) 09/23/2024 Patient Outreach [address] [address] Lizeth Bernard TILE PRESSER Care Coordination ([facility]/NAVEEN Marina- Follow up call) 09/09/2024 Population Health Risk Score [facility] Department [address] [place] [phone] Provider, Population Health Generic 09/08/2024 Patient Outreach [address] [address] Phalen, Lizeth, TILE PRESSER Transition Of Care (Tcm) (HDF unscheduled) 09/07/2024 Patient Outreach [facility] [address] [place], [place] [phone] Lizeth Bernard FNP Care Coordination ([facility] NAVEEN Ahn-ADT Outreach-Agrees to participate) 09/06/[address] [facility] [address] [place], [place] [phone] Lizeth Bernard FNP Care Management ([facility] chart review) 08/08/[address] [facility] [address] [place] [address] Lalita Garrison, HENRIQUE Results 08/07/2024 Orders Only [facility] [address] [place], [place] [phone] Lizeth Bernard FNP Hyponatremia (Primary Dx) 08/03/2024 Orders Only GENERIC EXTERNAL DATA DEPARTMENT Provider, Generic External Data from Last 3 Months Immunizations Name Administration Dates Next Due DTaP 02/12/2006, 7,12/23/1993,03/18,01/15/1993,1992 HPV, Quadrivalent 09/17/2009,06/05/2009,03/22/20 09 Hep B, Adolescent or Pediatric 02/15/1994,1993,08/20/1993 Hib ([facility]) 12/23/1993, 3,01/15/1993,11/14 IPV 10/24/1996, 4,01/15/1993,11/14 Influenza Injectable [...] Access Q2 Not on file 05/13/2024 Comments No Sex and Gender Information Value [...] 05/13/2024 10:00 AM EST Plan of Treatment Upcoming Encounters Date Type Department Care Team (Late st Contact Info) Description 01/30/2025 10:30 AM EDT Office Visit [facility] [address] [place], [place] [phone] Lizeth Bernard, VICTORINO [address] [place] [address] Health Maintenance Due Date Last Done Comments Family Planning (PISQ) 09/14/2007 Hepatitis C Screening 2010 Depression Screening 11/19/2023 11/18/2022, 11/19/19 Alcohol/Substance Use Screening 05/13/2025 05/13/2024 COVID-19 Vaccine ( season) 2025 07/03/2022, 12/19/2020 Postponed from 02/28/2024 (Patient Refused) Tobacco Screening 05/13/2025 05/13/2024 SDOH Screening 10/21/2025 10/21/2024 Cervical Cancer Screening 11/07/2027 HPV/Cotest 11/07/2027 11/06/2022 Pap Smear 11/07/2027 11/06/2022, 09/10/2020 DTaP/Tdap/Td Vaccines (10 - Td or Tdap) 06/16/2034 06/16/2024, 02/18/2016, 09/15/2012, Additional history exists Zoster Vaccines (1 of 2) 2042 RSV [...] Priority Date/Time Associated Diagnosis Comments TSH Routine 10/25/2024 1:00 PM EDT T4, FREE Routine 10/25/2024 1:00 PM EDT BASIC METABOLIC PANEL Routine 08/10/2024 9:24 AM EST Hyponatremia TSH Routine 08/03/2024 9:24 AM EST T4, FREE Routine 08/03/2024 9:24 AM EST BASIC METABOLIC PANEL Routine 08/03/2024 9:24 AM EST Sialadenitis HPV MRNA E6/E7 REFLEX TO HPV 16, 18/45 Routine 11/06/2022 2:55 PM EDT PAP SMEAR Routine 11/06/2022 2:55 PM EDT ZZZ HISTORICAL HIV AB/AG Routine 01/09/2020 9:10 AM EDT from Last 3 Months or Most Recently Relevant to Health Maintenance Results * TSH (10/25/2024 1:00 PM EDT) Only the most recent of2 resultswithin the time period is included. Thyroid Stimulating Hormone 0.58 0.32 - 4.0 uIU/mL [facility] Comment:TSH 3rd Generation ( [facility]) 10/25/2024 1:00 PM EDT 10/25/2024 1:02 PM EDT Generic External Data Provider LAB BLOOD ORDERAB LES Final Result Performing Organization Address [facility] de Phone Number [facility] [address] [place] [phone] * T4, Free (10/25/2024 1:00 PM EDT) Only the most recent of2 resultswithin the time period is included. Pathologist [facility] Free T4 (Free Thyroxine) 1.09 0.71 - 1.85 ng/dL [facility] 10/25/2024 1:00 PM EDT 10/25/2024 1:02 PM EDT Generic External Data Provider LAB BLOOD ORDERAB LES Final Result Performing Organization Address [facility] de Phone Number [facility] [address] [place] [phone] * (ABNORMAL) Basic Metabolic Panel (08/10/2024 9:24 AM EST) Only the most recent of2 resultswithin the time period is included. Pathologist [facility] Sodium 137 135 - 145 mmol/L [facility] Potassium 4.1 3.3 - 5.1 mmol/L [facility] Chloride 109(H) 96 - 108 mmol/L [facility] Carbon Dioxide 22 22 - 29 mmol/L [facility] Anion Gap 10(L) 12 - 20 [facility] Urea Nitrogen (BUN) 7(L) 9 - 16 mg/dL [facility] Creatinine, Serum 0.60 0.5 - 1.4 mg/dL [facility] Estimated Glomerular Filt Rate >60 [facility] Comment:Chronic Kidney Disea se: Estimated GFR < 60 mL/min/[id number] Kidney Disease: Estimated GFR < 15 mL/min/1.73m2 Glucose 81 60 - 115 mg/dL [facility] Calcium 8.7 8.4 - 10.2 mg/dL [facility] Blood Venous blood specimen / Unknown 08/10/2024 9:24 AM EST 08/10/2024 9:24 AM EST Lizeth Bernard TILE PRESSER LAB BLOOD ORDERABLES Final Res ult [facility] [address] [place] [phone] * HPV mRNA E6/E7 w/Reflex to HPV Genotypes 16, 18/45 (11/06/2022 2:55 PM EDT) HPV nRNA E6/E7 Not Detected Not Detected [facility] Comment:Methodology: Transcr iption-Mediated AmplificationThis assay detects E6/E7 viral messenger RNA (mRNA) from 14high-risk HPV types (16,18,31,33,35,39,45,51,52,56,58,59,66,68).Cervical sources are required for HPV testing.If a vaginal source from a patient who has had atotal hysterectomy with removal of cervix wassubmitted, please contact the testing laboratoryfor alternative testing options.For additional information, please refer tohttp://education.HealthyOut/faq/MLX277k8(This link if provided for information/educational purposes only.)THIS TEST WAS PERFORMED AT:[facility] [place] [phone] HAYWARD MD HPV mRNA E6/E7 TNP [facility] HPV 16 RNA TNP [facility] HPV 18/45 RNA [facility] 11/06/2022 2:55 PM EDT 11/07/2022 9:18 AM EDT us [facility] External Provider LAB CYT SAMUEL ORDERABLES Final Result [facility] [address] [place] [address] [phone] * Pap Smear (11/06/2022 2:55 PM EDT) 11/06/2022 2:55 PM EDT 11/07/2022 9:15 AM EDT Narrative [facility] - 11/12/2022 3:14 PM EDT ----- ------- Name: Meredith Mcbride ?Age/Sex: 32/F ? : 1990 Unit#: [id number] ?? Attend Dr: Talia Yao CNM ?Re11/06/22 ?Status: DEP REF ? Location: HO.LNP ?Disch: ? ----- ------- SPEC : [id number] ? RECD: 11/07/22-0915 ? STATUS: ??SOUT ? REQ NUM: [id number] ? SUMANTH: 11/06/22-9965 ? SUBM DR: Talia Yao CNM ? ENTERED: ??11/07/22-949 ?SP TYPE: Pap Smr ?OTHR DR: Lizeth Bernard TILE PRESSER ? ORDERED: ??Pap Smear ? Interpretation ?? Satisfactory for evaluation. ?? Negative for intraepithelial lesion or malignancy. ?HPV mRNA E6/E7: ?NOT DETECTED ? This assay detects E6/E7 viral messenger RNA (mRNA) from 14 high-risk HPV types (16, 18, ?? 31, 33, 35, 39, 45, 51, 52, 56, 58, 59, 66, 68) ?? HPV testing performed by [facility], [place], [place]. ??See reference laboratory ?? pion of the EMR for entire report. ?Clinical Information LMP: 10/30/22 Previous PAP test: 2020, WNL ? Material Received ?? ThinPrep-Cervical Copies To: ?? Talia Yao CNM ?? [address] [facility] ?? [place] [address] ?? [phone] ?? Lizeth Bernard ?? [address] ?? [place] [address] ?? [phone] ----- ------- Signed (signature on file) HAJA Meadows ([facility]) 11/12/22 1514 ? ----- ------- ? END OF REPORT ? [facility] External Provider LAB CYT OLOGY ORDERABLES Final Result [facility] [address] [place] [phone] * HIV AB/AG (01/09/2020 9:10 AM EDT) [facility] HIV AG/AB NONREACTIVE NR FOUNDAT[facility] ON LAB [...] detection of this assay. ?? The [employer] HIV Ag/Ab Combo assay result and supplemental assay results should be interpreted in conjunction with the patient's clinical presentation, history and other laboratory results. ??If the results are inconsistent with clinical evidence, additional testing is suggested to confirm the result. 01/09/2020 9:10 AM EDT us Allie Gaines NP HISTORICAL/NON ORDERABLE LABS Fi nal Result [facility] [address] from Last 3 Months or Most Recently Relevant to Health Maintenance [facility] * Guarantor: Meredith Mcbride Account Type Relation to Patient Date of Phone Billing Address Personal/Family Self [address] [place] Care Teams Material Handler 1St Shift Relationship Specialty Start Date End Date Lizeth Bernard FNP [address] [place] [address] PCP - General Family Medicine 02/24/22 Phong Matson MD [address] [place] [address], [place] [address] Endocrinology 05/15/24 Kristina Mccoy Child Neurologist 09/23/24
--- OUTSIDE RECORDS SUMMARY | 2024-10-25 14:35 | XMS_ITS | Encounter Summary ---
Author Organization [employer] Address 75 [facility] 7t [place] [address] Care Team Providers Care Civil Engineering Professor Name Role Phone Lizeth Bernard Primary Care Provider [phone] Phong Matson MD Unavailable [phone] Reason for Visit * Reason Onset Date Comments May recall 10/20/2024 Encounter Details Date Type Department [facility] Description 10/20/2024 Telephone [facility] MED & PEDS [address] [place], [place] [phone] Lizeth Bernard FNP [address] [place] [address] May recall Social History Tobacco Use Types Packs/Day Years [...] encounter Miscellaneous Notes * Telephone Encounter - Sridhar Sanchez [place] - 10/20/2024 9:34 AM EDT Telephone call to patient to schedule the following recall: Visit type: Physical Appointment notes: Physical Patient agree to appointment on 01/30/2025 at 10:30 AM with Joana . Pt aware appt location will be [facility]. documented in this encounter Plan of Treatment Upcoming Encounters Date Type Department Care Team ([facility] st Contact Info) Description 01/30/2025 10:30 AM EDT Office Visit [facility] PED[facility] [address] [place] [address] Lizeth Bernard FNP [address] [place] [address] documented as of this encounter Visit Diagnoses Not on filedocumented in this encounter Additional Health Concerns Assessment Noted Time PHQ-9 Depression Total Score: 1 11/19/19 23 3:22 PM EDT documented as of this encounter Care Teams Civil Engineering Professor Relationship Specialty Start Date End Date Lizeth Bernard FNP [address] [place] [address] PCP - General Family Medicine 02/24/22 Phong Matson MD [address] [place] [address] Endocrinology 05/15/24 Kristina Mccoy External Relations Director 09/23/24 documented as of this encounter
--- OUTSIDE RECORDS SUMMARY | 2024-10-25 14:35 | XMS_ITS | Encounter Summary ---
Author Organization [employer] Address [address] [facility] [address] 7t [place] [address] Care Team Providers Care Desk Manager Name Role Phone Lizeth Bernard VICTORINO Primary Care Provider [phone] Phong Matson MD Unavailable [phone] Encounter Details Date Type Department Care Team (Late st Contact Info) Description 10/25/2024 Orders Only GENERIC EXTERNAL DATA [...] as of this encounter Plan of Treatment Upcoming Encounters Date Type Department Care Team (Late st Contact Info) Description 01/30/2025 10:30 AM EDT Office Visit [facility] PEDS [address] [place] [address] Lizeth Bernard FNP [address] [place] [address] documented as of this encounter Procedures Procedure Name Priority Date/Time Associated Diagnosis Comments TSH Routine 10/25/2024 1:00 PM EDT T4, FREE Routine 10/25/2024 1:00 PM EDT documented in this encounter Results * TSH (10/25/2024 1:00 PM EDT) Thyroid Stimulating Hormone 0.58 0.32 - 4.0 uIU/mL [facility] Comment:TSH 3rd Generation ( [facility]) 10/25/2024 1:00 PM EDT 10/25/2024 1:02 PM EDT us Generic External Data Provider LAB BLOOD ORDERAB LES Final Result [facility] [address] [place] [address] [phone] * T4, Free (10/25/2024 1:00 PM EDT) Free T4 (Free Thyroxine) 1.09 0.71 - 1.85 ng/dL [facility] 10/25/2024 1:00 PM EDT 10/25/2024 1:02 PM EDT us Generic External Data Provider LAB BLOOD ORDERAB LES Final Result [facility] [address] [place] [phone] [phone] documented in this encounter Visit Diagnoses Not on filedocumented in this encounter Additional Health Concerns Assessment Noted Time PHQ-9 Depression Total Score: 1 11/19/19 23 3:22 PM EDT documented as of this encounter Care Teams Desk Manager Relationship Specialty Start Date End Date Lizeth Bernard FNP [address] [place] [address] PCP - General Family Medicine 02/24/22 Phong Matson MD [address] [place] [address] [place] [address] Endocrinology 05/15/24 Kristina Mccoy Head Of Stock 09/23/24 documented as of this encounter
--- OUTSIDE RECORDS SUMMARY | 2024-10-25 14:35 | XMS_ITS | Encounter Summary ---
Author Organization [employer] Address 75 [facility] 7t [place] [address] Care Team Providers Care Secondary School Teacher Librarian Name Role Phone Lizeth Bernard Primary Care Provider [phone] Phong Matson MD Unavailable [phone] Encounter Details Date Type Department Care Team (Late Contact Info) Description 03/30/2023 Abstract [facility] [address] [place], [place] [phone] Lizeth Bernard FNP [address] [place] [address] Social History Tobacco Use Types Packs/Day Years [...] Encounters Date Type Department Care Team (Late Contact Info) Description 01/30/2025 10:30 AM EDT Office Visit [facility] MED & PEDS [address] [place], [place] [phone] Lizeth Bernard FNP [address] [place], [place] [phone] documented as of this encounter Procedures Procedure Name Priority Date/Time Associated Diagnosis Comments PAP/HPV Routine 09/10/2020 documented in this encounter Results * Pap Smear (09/10/2020) Pap Negative for intraephithelial lesion or malignancy Negative for intraephithelial lesion or malignancy, Other us Historical Provider HEALTH MAINTENANCE Final Result documented in this encounter Visit Diagnoses Not on filedocumented in this encounter Additional Health Concerns Assessment Noted Time PHQ-9 Depression Total Score: 1 11/19/19 23 3:22 PM EDT documented as of this encounter Care Teams Secondary School Teacher Librarian Relationship Specialty Start Date End Date Lizeth Bernard FNP [address] [place] [address] PCP - General Family Medicine 02/24/22 Phong Matson MD [address] [place] [phone] Endocrinology 05/15/24 Kristina Mccoy Form Worker 09/23/24 documented as of this encounter
--- OUTSIDE RECORDS SUMMARY | 2024-10-25 14:35 | XMS_ITS | Encounter Summary ---
Author Organization [employer] Address 75 [facility] 7t [place] [address] Care Team Providers Care Web Communications Specialist Name Role Phone Lizeth Bernard Primary Care Provider [phone] Phong Matson MD Unavailable [phone] Reason for Visit * Reason Onset Date Comments Appointment Request 07/03/2022 Encounter Details Date Type Department Care Team ([facility] st Contact Info) Description 07/03/2022 Telephone [facility] [address] [place] [address] Lizeth Bernard FNP [address] [place], [place] [phone] Appointment Request Social History Tobacco Use Types [...] to get one done. Please contact pt [phone] Nepalese Speaker * Telephone Encounter - Hardik Bravo - 07/03/2022 9:18 AM EST Tc from pt requesting an Physical APPT due to work requiring her to get one Please contact pt at [phone] documented in this encounter Plan of Treatment Upcoming Encounters Date Type Department Care Team (Late st Contact Info) Description 01/30/2025 10:30 AM EDT Office Visit [facility] MED & PEDS [address] [place], [place] [phone] Lizeth Bernard FNP [address] [place] [address] documented as of this encounter Visit Diagnoses Not on filedocumented in this encounter Care Teams Web Communications Specialist Relationship Specialty Start Date End Date Lizeth Bernard FNP [address] [place] [address] PCP - General Family Medicine 02/24/22 Phong Matson MD [address] [place] [address] [place] [address] Endocrinology 05/15/24 Kristina Mccoy Diversional Therapist 09/23/24 documented as of this encounter
--- OUTSIDE RECORDS SUMMARY | 2024-10-25 14:35 | XMS_ITS | Encounter Summary ---
Author Organization [employer] Address [address] [facility] [address] 7t [place] [address] Care Team Providers Care Marketing Services Specialist Name Role Phone Lizeth Bernard VICTORINO Primary Care Provider [phone] Phong Matson MD Unavailable [phone] Encounter Details Date Type Department Care Team (Latest Contact Info) Description 10/20/2024 Travel Social History Tobacco Use Types Packs/Day Years [...] 01/30/2025 10:30 AM EDT Office Visit [facility] MED [facility] PEDS [address] [place] [address] Lizeth Bernard FNP 505 [place] [address] documented as of this encounter Visit Diagnoses Not on filedocumented in this encounter Additional Health Concerns Assessment Noted Time PHQ-9 Depression Total Score: 1 11/19/19 23 3:22 PM EDT documented as of this encounter Care Teams Marketing Services Specialist Relationship Specialty Start Date End Date Lizeth Bernard FNP [address] [place] [address] PCP - General Family Medicine 02/24/22 Phong Matson MD [address] [place] [address] [place] [address] Endocrinology 05/15/24 Kristina Mccoy Sheriff Deputy 09/23/24 documented as of this encounter
--- OUTSIDE RECORDS SUMMARY | 2024-10-25 14:35 | XMS_ITS | Encounter Summary ---
Author Organization [employer] Address 75 [facility] 7t [place] [address] Care Team Providers Care Supervisor Research Kennel Name Role Phone Lizeth Bernard Primary Care Provider [phone] Phong Matson MD Unavailable [phone] Reason for Visit * Reason Comments Care Coordination C[facility]IRID[facility]/NAVEEN Tucker- Follow up call Encounter Details Date Type Department Care Team (Latest Contact Info) Description 10/21/2024 Patient Outreach [facility] MEDICINE [address] [place] [address] Lizeth Bernard FNP [address] [place], [place] [phone] Care Coordination (NAVEEN Carranza- Follow up call) Social History Tobacco Use Types Packs/Day Years [...] AM EDT documented as of this encounter Progress Notes * Waleska Seals - 10/21/2024 1:56 PM EDT CHW Waleska Seals, placed outbound call to patient introducing herself calling from [facility]. Patient's name, and address confirmed. CHW followed up on SDOH needs. Per patient no SDOH needs at this time. No further questions or concerns. CHW reinforced direct contact information for any additional questions or concerns and extended clinic hours on Mondays and Wednesdays, and Walk-In Urgent Care Located in [facility]. Patient provided with after-hours line [facility], , which offer night time triage service and option to transfer to psychological operations officer providerif needed. Patient verbalizes understanding, and able to repeat back to mortgage or loan underwriter. A follow up call will be placed within 10 days, patient agrees with plan. documented in this encounter Plan of Treatment Upcoming Encounters Date Type Department Care Team ([facility] st Contact Info) Description 01/30/2025 10:30 AM EDT Office Visit [facility] MED & PEDS [address] [place], [place] [phone] Lizeth Bernard FNP [address] [place] [address] documented as of this encounter Visit Diagnoses Not on filedocumented in this encounter Additional Health Concerns Assessment Noted Time PHQ-9 Depression Total Score: 1 11/19/19 23 3:22 PM EDT documented as of this encounter Care Teams Supervisor Research Kennel Relationship Specialty Start Date End Date Lizeth Bernard FNP [address] [place] [address] PCP - General Family Medicine 02/24/22 Phong Matson MD [address] [place] [address] [place] [address] Endocrinology 05/15/24 Kristina Mccoy Networking Technology Instructor 09/23/24 documented as of this encounter
--- OUTSIDE RECORDS SUMMARY | 2024-10-25 14:35 | XMS_ITS | Data Portability ---
Author Organization [place] - [facility], [facility] Address [address] [place] [phone] Assessment Encounter Date Assessment Date Assessment LastModified [...] Address Organization Details Recorded Time Acute sialoadenitis 615906425 Active 2023 ALBERTINA VELEZ MD [address], [address] [facility] - [facility] 11:55:00 Problem Notes None recorded. Medical [...] completed Not Available Not Available Not Available M- Plus 27 mg iron-1 mg tablet TOME 1 TABLETA POR V A ORAL TODOS LOS D 02/17 completed Not Available Not Available Not Available Vitals Date Recorded Body height Body mass index (BMI) Body weight Provider Name and Address Organization Details Last Updated DateTime 02/18/2024 152.4 cm 29.7 kg/m2 83942.04 g Talia Cohen [place] - [facility] 02/18/2024 11:33:01 Social History None recorded. Functional Status None recorded. Mental Status None recorded. Family History Nothing Reported. Medical History No medical history recorded. Gynecological HistoryNo gynecological history recorded. Obstetrics History GPAL:G 0 P 0 0 0 0 Past Encounters Encounter ID Performer Location Encounter Start Date Encounter Closed Date Diagnosis/Indication Diagnosis SNOMED-CT Code Diagnosis ICD10 Code Diagnosis Note [id number] ALBERTINA VELEZ MD [facility] [address] [address] 02/18/2024 10:40:20 02/18/2024 11:57:51 Acute sialoadenitis 248256262 K11.21 Health Concerns Section Related Observation LastModified by Organization Detai ls LastModified Time None Recorded Concern Status LastModified by Organization Details LastModified Time None Recorded Advance Directives Directive None Recorded Payers Encounter Date Sequence Insurance Name Policy Number Policy Hutchins Covered Member ID Hutchins Member ID Guarantor Name 02/18/2024 1 [place] [facility] Meredith Hammer [id number] Meredith Hammer Notes Date Note Type Note Provider Name and Address Organization Details Recorded Time 02/18/2024 text/html [email or web address] - ipadsw elling of bilateral parotidonset around uration a few hours at a timemade worse with eatingfrequency about every other day initially through October, but none recentlyassociated with a sour tasteteeth are in good conditionhad radioactive iodine for thyroid, completed 2020, and 2022 ALBERTINA VELEZ MD [address] [place] [address], [phone], [place] - [facility] 02/18/2024 11:58:39 OBGyn Episode No OBEpisode recorded.
--- OUTSIDE RECORDS SUMMARY | 2024-10-25 14:35 | XMS_ITS | Encounter Summary ---
Author Organization [employer] Address [address] [facility] [address] [place] [address] Care Team Providers Care Restorative Care Technician Name Role Phone Lizeth Bernard Primary Care Provider [phone] Phong Matson MD Unavailable [phone] Reason for Visit * Reason Onset Date Comments Nurse Triage 10/07/2023 Encounter Details Date Type Department Care Team ([facility] st Contact Info) Description 10/07/2023 Telephone [facility] [address] [place] [address] Lizeth Bernard FNP [address] [place], [place] [id number] Nurse Triage Social History Tobacco Use Types [...] 10/07/2023 1:02 PM EDT Triage call with [employer] [place] [id number] Pt reports salivary gland pain on left side. Pt has had this a month ago affecting the right side. Pt reports neg for fever, pain is on left side with some swelling noted left lower cheek/jaw and under left ear area. Pt reports a bitter taste with eating as well. [facility] [address] [place]. Pt [...] salivary glands The caller accepted this outcome Thai speaker documented in this encounter Plan of Treatment Upcoming Encounters Date Type Department Care Team (Late st Contact Info) Description 01/30/2025 10:30 AM EDT Office Visit [facility] [address] [place] [address] Lizeth Bernard FNP [address] [place] [address] documented as of this encounter Visit Diagnoses Not on filedocumented in this encounter Additional Health Concerns Assessment Noted Time PHQ-9 Depression Total Score: 1 11/19/19 23 3:22 PM EDT documented as of this encounter Care Teams Restorative Care Technician Relationship Specialty Start Date End Date Lizeth Bernard FNP [address] [place] [address] PCP - General Family Medicine 02/24/22 Phong Matson MD [address] [place] [id number] Endocrinology 05/15/24 Kristina Mccoy Financial Management Analyst 09/23/24 documented as of this encounter
[2024-10-26 18:03] LABS: Thyroglobulin <0.1 ng/mL; Thyroglobulin Antibodies <1 IU/mL (< or = 1)
[2024-10-29 06:34] LABS: Thyroglobulin Antibody <1 IU/mL (<=1); Thyroglobulin Level <0.1 ng/mL
== END 2024-10-25 12:44 | disposition home or self-care (01) ==
LOC: HO.LAB 12:43
PROVIDERS: PCP Registered Nurse; Visit Provider Student in an Organized Health Care Education/Training Program
DX: Z85.850 Personal history of malignant neoplasm of thyroid (principal); E03.9 Hypothyroidism, unspecified
CPT/HCPCS: 36415; 84432; 84439; 84443; 86800

== ENCOUNTER 2024-10-27 12:35 | Outpatient (REF) | payer MEDICAID, SELFPAY ==
--- NOTE | ~2024-10-27 | US_ITS ---
EXAMINATION: US SOFT TISSUE HEAD AND NECK LIMITED. 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 Status post thyroidectomy... COMPARISON: December 04, 2022. TECHNIQUE: Linear transducer donovan-scale and color Doppler examination with attention to the region of the thyroid. FINDINGS: Multiple at least, 11, less than 1.1 cm cervical lymph nodes throughout the interrogated neck at the levels 1 2 and 5, bilaterally. US/US soft tiss head and/or neck IMPRESSION: Nonspecific prominent cervical lymph nodes.. Electronically signed by: Dyllan Ricci MD 10/28/2024 08:12 AM EDT
== END 2024-10-27 12:36 | disposition home or self-care (01) ==
LOC: HO.US 12:35
PROVIDERS: PCP Physician Assistant; Visit Provider Student in an Organized Health Care Education/Training Program
DX: Z85.850 Personal history of malignant neoplasm of thyroid (principal)
CPT/HCPCS: 76536

== ENCOUNTER → 2024-10-27 12:37 | Outpatient (BNV) | payer MEDICAID, SELFPAY | PROVIDERS: PCP Physician Assistant; Visit Provider Radiology Diagnostic Radiology | DX: Z85.850 Personal history of malignant neoplasm of thyroid (principal); Z90.09 Acquired absence of other part of head and neck | CPT/HCPCS: 76536 ==

== ENCOUNTER 2024-11-22 12:33 | Outpatient (AMB) | payer MEDICAID, SELFPAY ==
--- OUTSIDE RECORDS SUMMARY | 2024-11-22 12:38 | XMS_ITS | Data Portability ---
Author Organization [place] - [facility], [facility] Address [address] [place] [phone] Assessment Encounter Date Assessment Date Assessment LastModified [...] Address Organization Details Recorded Time Acute sialoadenitis 712085104 Active 2023 ALBERTINA VELEZ MD [address], [address] - [facility] 11:55:00 Problem Notes None recorded. Medical [...] Updated DateTime 02/18/2024 152.4 cm 29.7 kg/m2 99055.04 g Talia Cohen [place] - [facility] 02/18/2024 11:33:01 Social History None recorded. Functional Status None recorded. Mental Status None recorded. Family History Nothing Reported. Medical History No medical history recorded. Gynecological HistoryNo gynecological history recorded. Obstetrics History GPAL:G 0 P 0 0 0 0 Past Encounters Encounter ID Performer Location Encounter Start Date Encounter Closed Date Diagnosis/Indication Diagnosis SNOMED-CT Code Diagnosis ICD10 Code Diagnosis Note [id number] ALBERTINA VELEZ MD [facility] [address] [address] 02/18/2024 10:40:20 02/18/2024 11:57:51 Acute sialoadenitis 684908982 K11.21 Health Concerns Section Related Observation LastModified by Organization Detai ls LastModified Time None Recorded Concern Status LastModified by Organization Details LastModified Time None Recorded Advance Directives Directive None Recorded Payers Insurance Date Sequence Insurance Name Policy Number Policy Hutchins Covered Member ID Hutchins Member ID Guarantor Name 02/18/2024 1 [place] [facility] Meredith Hammer [id number] Meredith Hammer Notes Date Note Type Note Provider Name and Address Organization Details Recorded Time 02/18/2024 text/html thai - ipadsw elling of bilateral parotidonset around uration a few hours at a timemade worse with eatingfrequency about every other day initially through October, but none recentlyassociated with a sour tasteteeth are in good conditionhad radioactive iodine for thyroid, completed 2020, and 2022 ALBERTINA VELEZ MD [address] [place] [address], [phone], [place] - [facility] 02/18/2024 11:58:39 OBGyn Episode No OBEpisode recorded.
[2024-11-22 12:47] VITALS: BP 108/70; PULSE 70; O2SAT 98; BMI 34.1
--- NOTE | 2024-11-22 12:47 | A.OFFVIS_ITS ---
Vital Signs 3 11/22/24 12:47 Height 5 ft Weight 174 lb 13.225 oz BMI 34.1 BP 108/70 Blood Pressure Location Lt brachial Position Sitting Pulse 70 Pulse Source Pulse Oximeter Pulse Oximetry (%) 98 Oxygen Delivery Method Room Air Intake Visit Reasons: History of thyroid cancer Intake Note: Patient present today for history of thyroid cancer. 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 Currently 37 weeks History of thyroid cancer detail 2019: Diagnosed with multinodular thyroid with thyroid ultrasound revealing a large right midpole nodule measuring 4.1 cm 03/07/2019: FNA biopsy of the nodule was benign [place] category 2 Was subsequently referred to Dr. Clint Cooper at [facility] for right hemithyroidectomy due to compressive symptoms. 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 11/06/2020: Completion thyroidectomy with the official surgical pathology benign 05/01/2021: Remnant ablation with 30.2 mCi of I 131 radioactive iodine. TSH was 76.3, unfortunately no TG or TG antibodies were drawn. 05/10/2021: Whole-body scan revealed intense foci of uptake within the neck, otherwise only physiologic uptake 08/22/2021: TSH 0.11, TG undetectable, negative TG antibody 11/26/2021: TSH 0.29, TG less than 0.1, TG antibody negative 12/04/21: Ultrasound of the neck showed bilateral normal-appearing lymph nodes. 10/24/2022: Whole-body scan done via thyroid hormone withdrawal revealed increased radiotracer uptake in the upper neck in the region of the right thyroidectomy bed and along the thyroglossal duct. Uptake was otherwise physiologic. 10/16/2022: TSH 33.95, TG 0.9, TG antibody negative. 10/31/2022: Ultrasound of the neck revealed multiple abnormal appearing enlarged lymph nodes bilaterally. A right level 1B lymph node with absent hilum and round shape measuring 7 x 5 X 6 mm, a right level 3 lymph node with absent hilum measuring 1.4 X 0.3 X 0.8 cm. On the left side level 3, with a abnormal appearance with absent fatty hilum measuring 1.6 X 0.2 X 0.7 cm. 12/04/2022: Ultrasound by Dr. Albrecht showed a normal-appearing 0.7 cm lymph node in the right neck at level 1B. No FNA was completed based on size. Decision was made to proceed with high dose 150 mCi of radioactive iodine treatment. 03/17/2023: Underwent radioactive iodine treatment with 152 mCi of I 131. Done with Thyrogen. 03/27/2023: Whole-body scan revealed persistent residual radioactive iodine activity within the neck suggestive of residual thyroid tissue disease. Faint focal increased uptake in the anterior left hemipelvis possibly concerning for metastatic disease. 07/23/2023: Saw Dr. Zambrano at [facility] for 2nd opinion who also performed in office neck ultrasound which did not identify any abnormal lymph nodes. 09/23/2023: CT of the pelvis with contrast did not identify any metastatic lesion in the pelvis. 12/08/2023: Soft tissue neck CT identified chronic postoperative changes of thyroidectomy. No abnormal mass or nodular enhancement, no pathogen logically enlarged lymph nodes. Interval history s/p c section and tubal ligation 09/05/24 no complications This was her 3 rd pregancy , has a10 year old and 8 year old . currently on levothyroxine 100 mcg daily 10/25/2024: TSH 0.58, free T4 1.09, TG less than 0.1, TG antibody less than 1 10/27/2024: Ultrasound of the neck, I reviewed the images myself, mostly shows normal-appearing lymph nodes there is a left level 2 lymph node measuring 1.6 X 0.6 X1.7 cm which does not have a clear hilum, we will keep an eye on this. and formula Denies any compressive symptoms. Denies any symptoms of hypothyroidism or hyperthyroidism. Physical exam General: sitting comfortably in no acute distress HEENT: normocephalic/atraumatic Neck: supple, no palpable lymph nodes Cardiac: normal heart sounds Pulm: normal breath sounds B/L, no added breath sounds Extremities: no edema, no signs of myxedema Neuro: AAO x3, Speech: normal, no facial droop, moving all 4 extremities Laboratory Tests 12/03/20 02/19/21 05/01/21 15:03 15:25 09:25 TSH 0.20 L 0.61 76.30 H Free T4 1.30 Thyroglobulin 0.2 L 0.2 L Thyroglobulin Antibody 3 H 2 H <1 08/22/21 11/26/21 08/12/22 15:36 11:07 07:47 TSH 0.11 L 0.29 L 0.06 L Free T4 1.01 1.16 1.19 Thyroglobulin <0.1 L <0.1 L <0.1 Thyroglobulin Antibody <1 <1 <1 10/16/22 10/21/22 11/12/22 07:59 10:21 15:09 TSH 33.95 H 53.76 H 0.94 Free T4 < 0.42 L < 0.42 L 1.41 Thyroglobulin 0.9 H 0.1 H Thyroglobulin Antibody <1 <1 12/16/22 05/25/23 09/23/23 08:56 10:44 08:20 TSH 0.04 L 0.17 L 0.07 L Free T4 1.57 1.16 1.33 Thyroglobulin <0.1 <0.1 Thyroglobulin Antibody <1 <1 11/03/23 01/11/24 01/18/24 07:59 09:05 10:30 TSH 0.14 L 2.10 2.58 Free T4 1.23 1.03 0.97 Thyroglobulin Thyroglobulin Antibody 02/15/24 03/21/24 04/28/24 10:16 09:53 12:20 TSH 4.09 H 1.88 1.51 Free T4 1.03 1.19 1.07 Thyroglobulin Thyroglobulin Antibody 06/09/24 08/03/24 12:28 09:24 TSH 0.60 1.24 Free T4 0.97 1.05 Thyroglobulin Thyroglobulin Antibody Laboratory Tests 10/25/24 13:00 TSH 0.58 Free T4 1.09 Thyroglobulin <0.1 Thyroglobulin Antibody <1 EXAMINATION: 10/27/24 US SOFT TISSUE HEAD AND NECK LIMITED. 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 Status post thyroidectomy... COMPARISON: December 04, 2022. TECHNIQUE: Linear transducer donovan-scale and color Doppler examination with attention to the region of the thyroid. FINDINGS: Multiple at least, 11, less than 1.1 cm cervical lymph nodes throughout the interrogated neck at the levels 1 2 and 5, bilaterally. US/US soft tiss head and/or neck IMPRESSION: Nonspecific prominent cervical lymph nodes.. Electronically signed by: Dyllan Ricci MD 10/28/2024 08:[address] SOFT TISSUE NECK WITH CONTRAST 12/08/23 CLINICAL INFORMATION: Malignant tumor of the thyroid. COMPARISON: Soft tissue neck ultrasound 12/04/2022. TECHNIQUE: Following the intravenous administration of 60 mL of Omnipaque 350 intravenous contrast, helical imaging was performed in the axial plane with generation of coronal and sagittal reformatted images. This CT examination was performed using dose optimization techniques as appropriate, variously including the following: *Automated exposure control *Adjustment of mA and/or kV according to patient size (this includes techniques or standardized protocols for targeted exams where dose is matched to indication/reason for exam; i.e. extremities or head) *Use of iterative reconstruction technique DLP: 462 mGy-cm FINDINGS: There are chronic postoperative changes of a thyroid resection. The remainder of the visualized visceral soft tissues are unremarkable. There is no abnormal mass or nodular enhancement at the thyroidectomy bed. No pathologically enlarged cervical lymph nodes. No mediastinal or axillary adenopathy is visualized within the [id number] of this examination. Pharyngeal mucosal spaces are symmetric. Parapharyngeal and retromaxillary fat is preserved. Semiautomatic Stitcher Operator spaces are symmetric. Parotid and submandibular glands are normal. The tongue base and epiglottis are normal. Preepiglottic fat is preserved. Glottic and subglottic airways are patent. Lung apices are clear. Aortic arch apex is normal. Cervical carotid and vertebral arteries are patent. Internal jugular veins fill symmetrically. No acute osseous finding. Specific no worrisome lytic or blastic osseous lesion. No spinal canal compromise. The skull base is intact. No mastoid or middle ear effusion. No active paranasal sinus disease. Limited visualization of intracranial anatomy reveals no abnormal finding. CT/CT soft tissue neck w IV con IMPRESSION: There are chronic postoperative changes of a thyroid resection. Otherwise unremarkable examination. No abnormal mass or nodular enhancement at the thyroidectomy bed. No pathologically enlarged cervical lymph nodes. CT PELVIS WITH CONTRAST 09/23/23 CLINICAL INFORMATION: Malignant neoplasm of thyroid gland, additional notes/special instructions, thyroid cancer with uptake on total body scan in pelvis. Please correlate with CT scan. COMPARISON: Pelvic ultrasound 11/26/2021. TECHNIQUE: Helical scanning was performed with submillimeter collimation through the pelvis with the use of oral contrast and during bolus intravenous injection of 85 mL of Omnipaque 350 intravenous contrast. Sagittal and coronal multiplanar 2-D reconstructions were obtained. This CT examination was performed using dose optimization techniques as appropriate, variously including the following: *Automated exposure control *Adjustment of mA and/or kV according to patient size (this includes techniques or standardized protocols for targeted exams where dose is matched to indication/reason for exam; i.e. extremities or head) *Use of iterative reconstruction technique DLP: 436 mGy-cm FINDINGS: PELVIS: Uterus is anteverted. There is a slightly lobular border. And IUD which has been seen on prior pelvic ultrasounds is not seen on the current study. A small 1.5 cm right ovarian cyst is present. No free fluid is present in the cul-de-sac. No retroperitoneal adenopathy. The visualized bowel is unremarkable. OSSEOUS STRUCTURES: No abnormalities detected in the visualized osseous structures. CT/CT pelvis w IV con IMPRESSION: 1. No evidence of metastatic disease in the pelvis. 2. Incidental note made of a small 1.5 cm right ovarian cyst. 3. An IUD is not seen on the current study. 4. Slightly lobular uterine border could represent fibroids. US Head and Neck: 10/31/2022 THYROID BED: Prior thyroidectomy. No residual thyroid tissue demonstrated in the thyroid bed. No cystic or solid nodules demonstrated in the thyroid bed. There is a new midline level 1A lymph node that measures 6 x 3 x 7 mm in sagittal AP and transverse dimension. This is normal in size and demonstrate normal ultrasound morphology and flow. There are 7 lymph nodes identified in the right neck. There is a level 1A lymph node that is normal appearing and stable. There is a newly appreciated 1B lymph node that measures 7 x 5 x 6 mm and is normal in size. This demonstrates abnormal morphology with absent fatty hilum and round shape. There is a level 2 lymph node that has normal ultrasound morphology and is normal in size but slightly increased in size compared to prior prior exam. There is a new level 3 lymph node that is upper normal in size measuring 1.6 x 0.3 x 0.9 cm and has normal ultrasound morphology. There is a newly appreciated right level 3 lymph node that is upper normal in size measuring 1.4 x 0.3 x 0.8 cm. This has abnormal morphology with absent fatty hilum. There is a newly appreciated right level 4 lymph node that is upper normal in size measuring 1.1 x 0.2 x 0.9 cm and has normal ultrasound morphology. There is a newly appreciated slightly enlarged right level 5A lymph node that measures 1.4 x 0.3 x 1.2 cm and has normal ultrasound morphology. There are 2 newly appreciated left cervical lymph nodes. There is a level 1 lymph node that is upper normal in size measuring 0.8 x 0.7 x 1.5 cm and has normal ultrasound morphology. There is an upper normal level 3 lymph node that measures 1.6 x 0.2 x 0.7 cm and has abnormal ultrasound morphology with absent fatty hilum. There are 2 adjacent level 5A normal-appearing lymph nodes that was measured as one lymph node on prior exam. These are normal in size and have normal ultrasound morphology. US SOFT TISSUE NECK 12/04/21 CLINICAL INFORMATION: Personal history of malignant neoplasm of thyroid. COMPARISON: Ultrasound soft tissue head/neck thyroid dated 01/23/2020 and 02/21/2019. TECHNIQUE: Ultrasound of the neck soft tissues is performed with high- frequency donovan-scale imaging and color Doppler. FINDINGS: THYROID BED: Prior thyroidectomy. No residual thyroid tissue demonstrated in the thyroid bed. No cystic or solid nodules demonstrated in the thyroid bed. RIGHT NECK SOFT TISSUES: Scattered architecturally normal nodes are present. The nodes show normal fatty hilus, normal cortical thickness, and no cystic change or calcification. No abnormal color flow. The largest nodes are as follows: Level Ib: 0.56 x 0.31 x 0.51 cm. Normal jorge luis architecture. Level Ib: 0.75 x 0.22 x 0.88 cm. Normal jorge luis architecture. Level Ib: 0.93 x 0.64 x 1.1 cm. Normal jorge luis architecture. LEFT NECK SOFT TISSUES: Scattered architecturally normal nodes are present. The nodes show normal fatty hilus, normal cortical thickness, and no cystic change or calcification. No abnormal color flow. The largest nodes are as follows: Level 2: 1.3 x 0.44 x 0.83 cm. Normal jorge luis architecture. Level 2: 0.92 x 0.27 x 0.74 cm. Normal jorge luis architecture. Level 2: 0.80 x 0.31 x 0.52 cm. Normal jorge luis architecture. Level 2: 0.60 x 0.38 x 0.76 cm. Normal jorge luis architecture. Level 2: 1.9 x 0.35 x 1.1 cm. Normal jorge luis architecture. US/US soft tiss head and/or neck IMPRESSION: 1. Benign bilateral neck lymph nodes most of them measuring less than 1 cm exophytic with the largest left level 2 lymph node measuring 1.9 cm. It has benign ultrasound characteristics. 2. If clinically indicated, further evaluation of the neck soft tissues and nodes may be performed with CT soft tissue neck with intravenous contrast. [facility] Medical History (Updated 08/22/24 @ 13:27 by Gertrude Sandoval MD) Local recurrence of cancer of thyroid gland Acne History of thyroid cancer Hypothyroidism Thyroid cancer Vitamin D deficiency Thyroid nodule Surgical History Surgical history of tubal ligation Hx of total thyroidectomy Hx of knee surgery Hx of section Family History Father Vitamin D deficiency Mother Depression Hypertension Water retention Thyroid nodule Paternal Grandfather Colon cancer Social History Alcohol intake: never Patient Tobacco Use Status: Never used Tobacco Sexual orientation: Straight/Heterosexual Gender identity: Female Female Reproductive History Menstrual Age of Menarche: 13 Physical Exam Vital Signs: Last Vital Signs Pulse 70 11/22/24 12:47 BP 108/70 11/22/24 12:47 Pulse Ox 98 11/22/24 12:47 Oxygen Delivery Method Room Air 11/22/24 12:47 BMI result Body Mass Index 34.1 Assessment & Plan Assessment & Plan (1) History of thyroid cancer: Code(s): Z85.850 - Personal history of malignant neoplasm of thyroid Category: Medical Plan: 33-year-old female coming in today for follow up of 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 She is now , had c section on 09/05/2024. Currently . Her last tumor markers were checked 10/25/2024: TSH 0.58, free T4 1.09, TG less than 0.1, TG antibody less than 1 10/27/2024: Ultrasound of the neck, I reviewed the images myself, mostly shows normal-appearing lymph nodes there is a left level 2 lymph node measuring 1.6 X 0.6 X1.7 cm which does not have a clear hilum, we will keep an eye on this. Currently I would classify her as indeterminate response to therapy given questionable lymph nodes plus history of possible recurrence, and I would aim for TSH between 0.1-0.5, Her unstimulated thyroglobulin from September 2024 was undetectable and stimulated thyroglobulin from February 2024 was less than 1, which are both reassuring, however I would like to aim for TSH between 0.1-0.5. Most recent TSH from 10/25/2024 was around goal at 0.58. In indeterminate response, 15% to 20% we will have structural disease identified during follow-up, however in the remainder of the nonspecific changes are either stable or resolved, less than 1% have disease specific Plan: -continue levothyroxine 100 mcg daily. -TSH, free T4, TG and TG antibody levels to be done prior to next follow up in 6 months -follow up in 6 months -we will plan to do an ultrasound at the 1 year carla in October 2025 (2) Hypothyroidism: Code(s): E03.9 - Hypothyroidism, unspecified Category: Medical Qualifiers: Hypothyroidism type: postoperative Qualified Code(s): E89.0 - Postprocedural hypothyroidism Plan: Currently I would classify her as indeterminate response to therapy given questionable lymph nodes plus history of possible recurrence, and I would aim for TSH between 0.1-0.5, Her unstimulated thyroglobulin from September 2024 was undetectable and stimulated thyroglobulin from February 2024 was less than 1, which are both reassuring, however I would like to aim for TSH between 0.1-0.5. Most recent TSH from 10/25/2024 was around goal at 0.58. In indeterminate response, 15% to 20% we will have structural disease identified during follow-up, however in the remainder of the nonspecific changes are either stable or resolved, less than 1% have disease specific Plan: -continue levothyroxine 100 mcg daily. -TSH, free T4, TG and TG antibody levels to be done prior to next follow up in 6 months Plan I spent 30 minutes in reviewing the record, seeing the patient and documenting in the medical record. Orders: Orders 2 Thyroid Stimulating Hormone 03/27/25 E89.0 - Postprocedural hypothyroidism, Z85.850 - Personal history of malignant neoplasm of thyroid Thyroglobulin Tumor Marker 03/27/25 E89.0 - Postprocedural hypothyroidism, Z85.850 - Personal history of malignant neoplasm of thyroid Free T4 (Free Thyroxine) 03/27/25 E89.0 - Postprocedural hypothyroidism, Z85.850 - Personal history of malignant neoplasm of thyroid Thyroglobulin 03/27/25 E89.0 - Postprocedural hypothyroidism, Z85.850 - Personal history of malignant neoplasm of thyroid Thyroglobulin Antibodies 03/27/25 E89.0 - Postprocedural hypothyroidism, Z85.850 - Personal history of malignant neoplasm of thyroid Patient Instructions: Continue levothyroxine 100 mcg daily Do blood work a week before your next appointment in March 2025 Coding Level of Care Code Est Pt Level 4 (84000) Complex EM visit Add On G2211 Diagnoses History of thyroid cancer Z85.850 Postoperative hypothyroidism E89.0 Hypothyroidism type: postoperative Time Spent (min) 30
== END 2024-11-22 13:16 | disposition home or self-care (01) ==
LOC: HO.ENCR 12:34
PROVIDERS: PCP Physician Assistant; Visit Provider Student in an Organized Health Care Education/Training Program
DX: Z85.850 Personal history of malignant neoplasm of thyroid (principal); E89.0 Postprocedural hypothyroidism
CPT/HCPCS: 99214

== ENCOUNTER → 2024-11-22 12:33 | Outpatient (BNVA) | payer MEDICAID, SELFPAY | PROVIDERS: PCP Physician Assistant; Visit Provider Student in an Organized Health Care Education/Training Program | DX: E89.0 Postprocedural hypothyroidism (principal); Z85.850 Personal history of malignant neoplasm of thyroid | CPT/HCPCS: 99212 ==

== ENCOUNTER 2025-01-30 11:24 | Outpatient (REF) | payer MEDICAID, SELFPAY ==
--- OUTSIDE RECORDS SUMMARY | 2025-01-30 12:19 | XMS_ITS | Encounter Summary ---
Author Organization [employer] Address [address] [place] [address] Care Team Providers Care Snowboard Designer Name Role Phone Lizeth Bernard Primary Care Provider [phone] Phong Matson MD Unavailable [phone] Reason for Visit * Reason Onset Date Comments Nurse Triage 10/07/2023 Encounter Details Date Type Department Care Team ([facility] st Contact Info) Description 10/07/2023 Telephone [facility] MEDICINE [address] [place] [address] Lizeth Bernard FNP [address] [place], [place] [id number] Nurse Triage Social History Tobacco Use Types [...] 10/07/2023 1:02 PM EDT Triage call with [employer] Mail Clerk [place] [id number] Pt reports salivary gland pain on left side. Pt has had this a month ago affecting the right side. Pt reports neg for fever, pain is on left side with some swelling noted left lower cheek/jaw and under left ear area. Pt reports a bitter taste with eating as well. [facility] [address] [place]. [...] salivary glands The caller accepted this outcome Bengali speaker documented in this encounter Plan of Treatment Not on file documented as of this encounter Visit Diagnoses Not on filedocumented in this encounter Additional Health Concerns Assessment Noted Time PHQ-9 Depression Total Score: 1 11/19/19 23 3:22 PM EDT documented as of this encounter Care Teams Snowboard Designer Relationship Specialty Start Date End Date Lizeth Bernard FNP [address] [place] [address] PCP - General Family Medicine 02/24/22 Phong Matson MD [address] [place] [id number] Endocrinology 05/15/24 Kristina Mccoy Flooring Installer 09/23/24 documented as of this encounter
[2025-01-30 13:57] LABS: MANUAL DIFF FLAG NO
[2025-01-30 14:10] LABS: Hematocrit 37.8 % (37.0-47.0); Hemoglobin 12.9 g/dl (12.0-16.0); Imm Gran Abs Auto 0.02 X10*3/uL (0.00-0.03); Imm Gran Pct Auto 0.3 % (0.0-0.4); Lymphocytes Absolute Auto 1.4 X10*3/uL (1.2-4.9); Mean Corpuscular HGB Conc 34.1 g/dl (31.0-35.0); Mean Corpuscular Hemoglobin 27.8 pg (27.0-33.0); Mean Corpuscular Volume 81.5 fL (80.0-98.0); NRBC Abs Auto 0.000 X10*3/uL (0.0-0.012); NRBC Pct Auto 0.0 /100WBC (0.0-0.2); Platelet Count 258 X10*3/uL (160-400); Red Blood Count 4.64 X10*6/uL (4.20-5.50); White Blood Count 7.4 X10*3/uL (4.8-10.8)
[2025-01-30 14:25] LABS: Hemoglobin A1C 106.3157 umol/L; Total Hemoglobin (HGBA1C) 3402.3755 umol/L
[2025-01-30 14:30] LABS: Alanine Aminotransferase 17 U/L (0-31); Albumin Level 4.4 g/dL (3.5-5.0); Alkaline Phosphatase 63 U/L (39-117); Anion Gap 11 (12-20); Aspartate Amino Transferase 26 U/L (5-31); Blood Urea Nitrogen 6 mg/dL (9-16); Calcium 8.8 mg/dL (8.4-10.2); Carbon Dioxide 25 mmol/L (22-29); Chloride 108 mmol/L (96-108); Cholesterol 173 mg/dL (<200); Estimated Glomerular Filt Rate > 60; HDL Cholesterol 62 mg/dL (>40); Potassium 3.9 mmol/L (3.3-5.1); Sodium 140 mmol/L (135-145); Total Protein 7.4 g/dL (6.5-8.0); Triglycerides 53 mg/dL (<150)
[2025-01-31 08:34] LABS: HIV Num 1 0.07 S/CO (0.00-0.99)
== END 2025-01-30 11:25 | disposition home or self-care (01) ==
LOC: HO.CHCLDS 11:24
PROVIDERS: Visit Provider Registered Nurse
DX: Z11.4 Encounter for screening for human immunodeficiency virus [HIV] (principal); Z11.3 Encounter for screening for infections with a predominantly sexual mode of transmission; Z11.59 Encounter for screening for other viral diseases; Z00.00 Encounter for general adult medical examination without abnormal findings
CPT/HCPCS: 36415; 80053; 80061; 82306; 83036; 85025; 86592; 87389

== ENCOUNTER 2025-02-21 13:10 | Outpatient (REF) | payer MEDICAID, SELFPAY ==
--- OUTSIDE RECORDS SUMMARY | 2025-02-21 13:57 | XMS_ITS | Encounter Summary ---
Author Organization [employer] Address [address] [facility] 7t [place] [address] Care Team Providers Care Coding Specialist Name Role Phone Lizeth Bernard Primary Care Provider [phone] Phong Matson MD Unavailable [phone] Reason for Visit * Reason Onset Date Comments Care Management 02/16/2025 C3CM follow up c all Encounter Details Date Type Department Care Team ([facility] Contact Info) Description 02/16/2025 Telephone [facility] MEDICINE [address] [place] [address] Lizeth Bernard FNP [address] [place], [place] [phone] Care Management (C3CM follow up call) Social History Tobacco Use Types Packs/Day Years Used Date Smoking Tobacco: Never Passive Smoke Exposure: Never Smokeless Tobacco: Never Alcohol Use Standard Drinks/Week Comments Never 0 (1 standard drink = 0.6 oz pur e alcohol) Depression Answer Date Recorded Patient Health Questionnaire-9 Score 0 01/30/2025 Patient Health Questionnaire-9 Score 0 01/30/2025 Last PHQ-9: Questionnaire Data Not on file 0 01/30/2025 Housing Stability Answer Date Recorded What is your housing situation today? I have tonierisa gonzales 05/13/[address] you [...] Date Recorded Patient Health Questionnaire-2 Score 0 01/30/2025 Internet Access Answer Date Recorded Internet Access Q1 Yes 05/13/2024 Internet Access Q2 Not on file 05/13/2024 Comments Unknown Sex and Gender Information Value Date Recorded Sex Assigned at Female 04/28/2022 10:20 AM EDT Legal Sex Female 10:20 AM EDT Gender Identity Female 04/28/2022 10:20 AM EDT Sexual Orientation Straight 04/28/2022 10 :20 AM EDT documented as of this encounter Miscellaneous Notes * Telephone Encounter - Kristina Mccoy - 02/16/2025 10:38 AM EDT CM Kristina Mccoy RN and CHW [place] Seals placed outbound call to patient. Patient's name, and address confirmed. Patient states is doing well with no recent illnesses or emergency room visits. Patient and are doing well. Infant is now 5 months and is scheduled for 6 month appointment 03/14/25, patient has no concerns with infant. Tire Changer reviewed recent physical appointment i t patient and labs were completed and discussed with patient prior to follow up call, patient has no questions. Referral placed to [facility] orthopedic surgery for thumb, patient is aware and plans to reach out on Thursday to schedule an appointment if she does not hear anything. No further questions or concerns. CM reinforced direct contact information or CHW for any additional questions or concerns. Education provided on [facility] located in [facility] of [facility]. Patient provided with after-hours line for [facility], , which offer night time triage service and option to transfer to station engineer chief provider if needed. Patient verbalizes understanding, and able to repeat back to advertising copy writer. A follow up call will be placed within 1 month, patientagrees with plan. documented in this encounter Plan of Treatment Upcoming Encounters Date Type Department Care Team (Late st Contact Info) Description 04/19/2025 9:00 AM EDT Office Visit [facility] OPTOMETRY [address] [place] [address] Rachid, Yamini, OD [address] [place] [address] documented as of this encounter Visit Diagnoses Not on filedocumented in this encounter Additional Health Concerns Assessment Noted Time PHQ-9 Depression Total Score: 0 01/31/20 11:15 AM EDT documented as of this encounter Care Teams Coding Specialist Relationship Specialty Start Date End Date Lizteh Bernard FNP [address] [place] [address] PCP - General Family Medicine 02/24/22 Phong Matson MD [address] [place] [address] [place] [id number] Endocrinology 05/15/24 Kristina Mccoy Tire Changer 09/23/24 documented as of this encounter
--- OUTSIDE RECORDS SUMMARY | 2025-02-21 13:57 | XMS_ITS | Encounter Summary ---
Author Organization [employer] Address [address] [place] [address] [address] [place] [address] Care Team Providers Care Salesperson Flying Squad Name Role Phone Lizeth Bernard Primary Care Provider [phone] Phong Matson MD Unavailable [phone] Reason for Visit * Reason Onset Date Comments Lab Orders 02/20/2025 Encounter Details Date Type Department Care Team ([facility] Contact Info) Description 02/20/2025 Telephone [facility] MED & PEDS [address] [place], [place] [phone] Lizeth Bernard FNP [address] [place] [address] Lab Orders Social History Tobacco Use Types Packs/Day Years [...] encounter Miscellaneous Notes * Telephone Encounter - Ramandeep Ziegler RN - 02/20/2025 2:40 PM EDT TC to pt. plaster lather used. Pt needs TB test for work. Order placed. * Telephone Encounter - Berkley Powell - 02/20/2025 2:02 PM EDT Tc from pt requesting a lab order for a TB test Contact pt at [phone] (setswana) documented in this encounter Plan of Treatment Upcoming Encounters Date Type Department Care Team (Late st Contact Info) Description 04/19/2025 9:00 AM EDT Office Visit [facility] OPTOMETRY [address] [place], [place] [phone] Rachid, Yamini, OD [address] [place] [address] Scheduled Orders Name Type Priority Associated Diagnoses Orde r Schedule T-SPOT .TB Lab Routine Screening due Expected: 02/20/2025 (Approximate), Expires: 02/20/2026 documented as of this encounter Visit Diagnoses Diagnosis Screening due- Primary documented in this encounter Additional Health Concerns Assessment Noted Time PHQ-9 Depression Total Score: 0 01/31/20 11:15 AM EDT documented as of this encounter Care Teams Salesperson Flying Squad Relationship Specialty Start Date End Date Lizeth Bernard FNP [address] [place] [id number] PCP - General Family Medicine 02/24/22 Phong Matson MD [address] [place] [id number] Endocrinology 05/15/24 Kristina Mccoy Disc Pad Grinder 09/23/24 documented as of this encounter
--- OUTSIDE RECORDS SUMMARY | 2025-02-21 13:57 | XMS_ITS | Encounter Summary ---
Author Organization [employer] Address [address] [facility] [address] [place] [address] Care Team Providers Care Bookkeeping Clerk Name Role Phone Lizeth Bernard Primary Care Provider [phone] Phong Matson MD Unavailable [phone] Reason for Visit * Reason Onset Date Comments Nurse Triage 10/07/2023 Encounter Details Date Type Department Care Team ([facility] st Contact Info) Description 10/07/2023 Telephone [facility] MEDICINE [address] [place] [address] Lizeth Bernard FNP [address] [place], [place] [phone] Nurse Triage Social History Tobacco Use Types [...] 10/07/2023 1:02 PM EDT Triage call with [employer] Production Director [place] [id number] Pt reports salivary gland pain on left side. Pt has had this a month ago affecting the right side. Pt reports neg for fever, pain is on left side with some swelling noted left lower cheek/jaw and under left ear area. Pt reports a bitter taste with eating as well. [facility] [address] [place]. Pt [...] salivary glands The caller accepted this outcome Khmer speaker documented in this encounter Plan of Treatment Upcoming Encounters Date Type Department Care Team (Late st Contact Info) Description 04/19/2025 9:00 AM EDT Office Visit [facility] OPTOMETRY [address] [place] [address] Yamini Rashid, OD [address] [place] [address] documented as of this encounter Visit Diagnoses Not on filedocumented in this encounter Additional Health Concerns Assessment Noted Time PHQ-9 Depression Total Score: 1 11/19/19 23 3:22 PM EDT documented as of this encounter Care Teams Bookkeeping Clerk Relationship Specialty Start Date End Date Lizeth Bernard FNP [address] [place] [address] PCP - General Family Medicine 02/24/22 Phong Matson MD [address] [place] [address] [place] [id number] Endocrinology 05/15/24 Kristina Mccoy Cigarette Roller 09/23/24 documented as of this encounter
--- OUTSIDE RECORDS SUMMARY | 2025-02-21 13:58 | XMS_ITS | Clinical Summary ---
Author Organization [employer] Address [address] [place] [address] [address] [place] [address] Care Team Providers Care Preassembler And Inspector Name Role Phone Lizeth Bernard VICTORINO Primary Care Provider [phone] Phong Matson MD Unavailable [phone] Allergies Active Allergy Reactions Criticality Noted Date Comments Lactose 12/04/2022 Medications acetaminophen (Tylenol 8 Hour) 650 MG ER tablet Take 1 tablet by mouth every 8 (eight) hours. 2 Active ibuprofen 600 MG tablet TOME GISEL TABLETA CADA OCHO HORAS CUANDO SEA NECESARIO 2 Active Vit-Fe Fumarate-FA (M-Choco Plus) 27-1 MG tablet TOME GISEL TABLETA TODOS LOS D 3 Active cholecalcifero l 50 MCG (1999 UT) capsuleIndicat ions:Vitamin D deficiency TOME GISEL CAPSULA TODOS LOS CAMEJO 90 capsule 3 4 Active fluticasone (Flonase) 50 MCG/ACT nasal sprayIndicatio ns:Nasal congestion ROCIAR 2 VECES EN CADA FOSA NASAL EN LA MANANA SHAKE GENTLY/PRIME BEFORE 1ST USE&CLEAN TIP/REPLACE CAP 48 mL 11 4 Active levothyroxine (Synthroid, Levoxyl) 125 MCG tablet Take 125 mcg by mouth Once per day. Active Diclofenac Sodium 1 % gel Apply thin layer by topical route (quantity as directed on package insert) to affected area of pain 3 times daily as needed. 50 g 3 5 Active cetirizine (ZyrTEC) 10 MG tablet Take 1 tablet (10 mg) by mouth if needed each day for allergies. 90 tablet 3 3 01/31/20 25 Discontinu ed(Therapy completed) ferrous gluconate (Fergon) 324 (38 Fe) MG tablet TAKE 1 PILL EVERY THURSDAY, THURSDAY, AND THURSDAY. TAKE WITH A FULL GLASS OF WATER OR VIT C CONTAINING JUICE, AND IDEALLY 1 HOUR BEFORE A MEAL OR 2 HOURS AFTER A MEAL 36 tablet 3 01/31/20 25 Discontinu ed(Therapy completed) Active Problems Problem Noted Date Diagnosed Date [...] Jan 2024 - Dr. Fierro at ENT [facility]. Suspected possibly d/t viral injury exacerbated by [...] care precautions reviewed Healthcare maintenance 02/17/2023 Overview (01/30/2025): Pap: NILM HPV neg 11/06/22 by [facility] Talia Yao. Following with [facility] as of 2024. Last PE: 01/30/25 Acne vulgaris 11/19/2022 Assessment & Plan (02/18/2023 6:43 PM EDT): Inflammatory papules and pustules on face, back and chest clear Tretinoin 0.025% cream sent to [facility] Doxycycline on hold given upcoming thyroid tx. May resume in future if interested Assessment & Plan (11/19/2022 10:29 PM EDT): Inflammatory papules and pustules on face, back and chest clear Continues with Cetaphil cleanser and topical tretinoin 0.01% gel every other night by topical route Start doxycycline 100mg PO daily. Reviewed med safety and SE, especially photosensitivity as summer is nearing. Malignant tumor of thyroid gland 07/29/2022 Overview (05/15/2024): Initially diagnosed with multinodular thyroid 2019 Biopsied by IR 03/07/2019 with benign cytology (Mcdonough Category II). Subsequent R hemithyroidectomy d/t compressive [...] require repeat I131 treatment. Assessment & Plan (01/30/2025 1:20 PM EDT): Cont following with specialist Assessment & Plan (02/18/2023 6:45 PM EDT): Initially diagnosed with multinodular thyroid 2019 Biopsied by IR 03/07/2019 with benign cytology (Mcdonough Category II). Subsequent R hemithyroidectomy d/t compressive symptoms performed by Dr. 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 11/06/20: completion thyroidectomy w/ official surgical path [...] Assessment & Plan (11/19/2022 10:37 PM EDT): Initially diagnosed with multinodular thyroid 2019 Biopsied by IR 03/07/2019 with benign cytology (Mcdonough Category II). Subsequent R hemithyroidectomy d/t compressive symptoms performed by Dr. 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 Overview (01/30/2025): S/p thyroid CA Continues with levothyroxine 100 mcg PO daily TSH goal: normal range <2.5 during Following with [facility] Lab Results Component Value Date TSH 0.58 10/25/2024 Sickle cell trait 08/14/2016 Dyschromia 12/02/2011 Resolved Problems Problem Noted Date Diagnosed Date Resolved Date History of total thyroidectomy 12/12/2020 01/30/2025 Encounters Date Type Department Care Team Description 02/20/2025 Telephone [facility] [address] [place] [address] Lizeth Bernard FNP Lab Orders 02/16/[address] [address] Lizeth Bernard FNP Care Management (C3CM follow up call) 02/02/[address] [address] Lizeth Bernard FNP Results 01/30/2025 10:30 AM EDT Office Visit [facility] [address] [place] [address] Lizeth Bernard FNP Encounter for routine history and physical examination of adult (Primary Dx); Healthcare maintenance; Postoperative hypothyroidism; Malignant tumor of thyroid gland (CMS/HCC); Vitamin D deficiency; Chronic pain of right thumb; Tendonitis of right hand 01/30/2025 Travel 01/23/2025 Patient Outreach [facility] [address] [place] [phone] Lizeth Bernard FNP Pre-visit Planning (SDOH screening completed on 10/21/24 ) 01/23/[address] [address] Lizeth Bernard FNP Care Management (C3CM follow up call) 12/28/[address] [address] Lizeth Bernard SALES ENGAGEMENT MANAGER Care Management ([facility] TC #1-lvm) 12/01/2024 Patient Outreach [address] [address] Lizeth Bernard SALES ENGAGEMENT MANAGER Care Coordination (C3/CHW NAVEEN Ahn- Follow up-CHW Program closed) 12/01/[address] [address] Lizeth Bernard SALES ENGAGEMENT MANAGER Care Management (C3CM follow up call) from Last 3 Months Immunizations Immunization Administration Dates Next Due DTaP 02/12/2006, 7,12/23/1993,03/18,01/15/1993,1992 HPV, Quadrivalent 09/17/2009,06/05/2009,03/22/20 09 Hep B, Adolescent or Pediatric 02/15/1994,1993,08/20/1993 Hib ([facility]) 12/23/1993, 3,01/15/1993,11/14 IPV 10/24/1996, 4,01/15/1993,11/14 Influenza Injectable Quadriv alant Preservative Free IIV4 MDCK 04/18/2019 Influenza, IIV3, injectable 03/11/2011 Influenza, Injectable, MDCK, preservative free 03/10/2024 Influenza, Split (incl. storm fied surface antigen) 07/04/2013,06/09/2012 Influenza, seasonal, injecta ble, preservative free 04/14/2016 MMR 10/24/1996,1993 Meningococcal MCV4P ACYW-135 03/22/2009 Pfizer Covid-19 Vaccine 12+ 12/19/2020 RSV Bivalent 07/21/2024 Tdap 06/16/2024,02/18/2016,09/15/2012 Varicella 06/05/2009,03/22/2009 Family History Medical History Relation [...] Sign Reading Time Taken Comments Blood Pressure 110/64 01/30/2025 10:28 AM EDT Pulse 78 01/30/2025 10:28 AM EDT Temperature 36.9 C (98.5 F) 01/30/2025 10:28 AM EDT Respiratory Rate 16 01/30/2025 10:28 AM EDT Oxygen Saturation 98% 05/13/2024 10:00 AM EST Inhaled Oxygen Concentration - - Weight 74.8 kg (165 lb) 01/30/2025 10:28 AM EDT Height 151.5 cm (4' 11.63 ) 01/30/2025 10:28 AM EDT Body Mass Index 32.63 01/30/2025 10:28 AM EDT Plan of Treatment Upcoming Encounters Date Type Department Care Team (Late st Contact Info) Description 04/19/2025 9:00 AM EDT Office Visit [facility] [address] [place], [place] [phone] Rachid, Yamini, OD [address] [place] [address] Health Maintenance Due Date Last Done Comments Family Planning (PISQ) 09/14/2007 Hepatitis C Screening 2010 Influenza Vaccine (#1) 2025 , 04/18/2019, 04/14/2016, Additional history exists Alcohol/Substance Use Screening 05/13/2025 05/13/2024 COVID-19 Vaccine ( season) 2025 07/03/2022, 12/19/2020 Postponed from 02/28/2024 (Patient Refused) SDOH Screening 10/21/2025 10/21/2024 Depression Screening 01/30/2026 01/30/2025, 01/31/20 Disability Screening 01/30/2026 01/30/2025 Tobacco Screening 01/30/2026 01/30/2025 Cervical Cancer Screening 11/07/2027 HPV/Cotest 11/07/2027 11/06/2022 Pap Smear 11/07/2027 11/06/2022, 09/10/2020 DTaP/Tdap/Td Vaccines (10 - Td or Tdap) 06/16/2034 06/16/2024, 02/18/2016, 09/15/2012, Additional history exists Zoster Vaccines (1 of 2) 2042 HIB Vaccines Completed 12/23/1993, 02/28, 01/15/1993, Additional history exists Hepatitis B Vaccines Completed 02/15/1994, 09/25/1993, 08/20/1993 IPV Vaccines Completed 10/24/1996, 11/28, 01/15/1993, Additional history exists Meningococcal Vaccine Completed 03/22/2009 HPV Vaccines Completed 09/17/2009, 01/2009, 03/22/2009 RSV Patients and Patients Aged 60 years or older Completed 07/21/2024 HIV Screening Completed 01/30/2025, 01/09/2020 Hepatitis A Vaccines Aged Out No long er eligible based on patient's age to complete this topic Meningococcal B Vaccine Aged Out No l onger eligible based on patient's age to complete this topic Pneumococcal Vaccine: Pediatrics (0 to 5 Years) and At-Risk Patients (6 to 49) Years Aged Out No longer eligible based on patient's age to complete this topic RSV under 20 months Aged Out No longe r eligible based on patient's age to complete this topic Rotavirus Vaccines Aged Out No longer eligible based on patient's age to complete this topic Procedures Procedure Name Priority Date/Time Associated Diagnosis Comments VITAMIN D,25-OH,TOTAL,IA Routine 01/30/2025 11:26 AM EDT Encounter for routine history and physical examination of adult CBC WITH AUTO DIFFERENTIAL Routine 01/30/2025 11:26 AM EDT Encounter for routine history and physical examination of adult COMPREHENSIVE METABOLIC PANEL Routine 01/30/2025 11:26 AM EDT Encounter for routine history and physical examination of adult HEMOGLOBIN A1C Routine 01/30/2025 11:26 AM EDT Encounter for routine history and physical examination of adult LIPID PANEL, STANDARD Routine 01/30/2025 11:26 AM EDT Encounter for routine history and physical examination of adult HIV 1/2 ANTIGEN/ANTIBODY, FOURTH GENERATION W/RFL Routine 01/30/2025 11:26 AM EDT Encounter for routine history and physical examination of adult RPR (MONITOR) W/REFL TITER Routine 01/30/2025 11:26 AM EDT Encounter for routine history and physical examination of adult HPV MRNA E6/E7 REFLEX TO HPV 16, 18/45 Routine 11/06/2022 2:55 PM EDT PAP SMEAR Routine 11/06/2022 2:55 PM EDT from Last 3 Months or Most Recently Relevant to Health Maintenance Results * Vitamin D, 25-Hydroxy, Total, Immunoassay (01/30/2025 11:26 AM EDT) Vitamin D 25-OH Total 43.2 >30 ng/mL [facility] Comment: Health Based Reference Values*< 20 ng/mL Rankvjzyb86-26 ng/mL Insufficient> 30 ng/mL Sufficient*Jacklyn PATRICK. N Engl J Med. 2007;357:266-280There is no well-established upper level of normal vitamin Dlevels. Some laboratories use 50 ng/mL as an upper limit ofnormal. However, toxicity is patient-dependent and may occurat any level. Careful correlation with the patient'spresentation is necessary and, if there is concern forvitamin D toxicity, treatment should be consideredirrespective of the serum level.Care must be taken in interpreting Vitamin D results fromdifferent laboratories and methodologies. Published datademonstrated that results from patients undergoinghemodialysis may show a negative bias when tested withvarious automated 25-OH vitamin D assays when compared toLC-MS/MS.When testing samples from patients whose predominant form ofVitamin D is Vitamin D2, such as patients receiving VitaminD2 supplementation, results that are subtherapeutic shouldbe confirmed with another method such as LC-MS/MS. Blood Venous blood specimen / Unknown 01/30/2025 11:26 AM EDT 01/30/2025 1:54 PM EDT us Lizeth Bernard SALES ENGAGEMENT MANAGER LAB BLOOD ORDERABLES Final Res ult [facility] [address] [place] [address] [phone] * (ABNORMAL) CBC auto differential (01/30/2025 11:26 AM EDT) White Blood Count 7.4 4.8 - 10.8 X10*3/uL [facility] Red Blood Count 4.64 4.20 - 5.50 X10*6/uL [facility] Hemoglobin 12.9 12.0 - 16.0 g/dl [facility] Hematocrit 37.8 37.0 - 47.0 % [facility] Mean Corpuscular Volume 81.5 80.0 - 98.0 fL [facility] Mean Corpuscular Hemoglobin 27.8 27.0 - 33.0 pg [facility] Mean Corpuscular HGB Conc 34.1 31.0 - 35.0 g/dl [facility] Red Cell Distribution Width 14.7 11.0 - 16.0 % [facility] Platelet Count 258 160 - 400 X10*3/uL [facility] Mean Platelet Volume 10.3 9.4 - 12.3 fL [facility] Neutrophils Percent Auto 71.0 45 - 73 % [facility] Imm Gran Pct Auto 0.3 0.0 - 0.4 % [facility] Lymphocytes Percent Auto 19.6(L) 20 - 40 % [facility] Monocytes Percent Auto 5.2 2 - 11 % [facility] Eosinophils Percent Auto 3.4 0 - 4 % [facility] Basophils Percent Auto 0.5 0 - 2 % [facility] NRBC Pct Auto 0.0 0.0 - 0.2 /100WBC [facility] Neutrophils Absolute Auto 5.2 2.0 - 8.3 x10*3/uL [facility] Imm Gran Abs Auto 0.02 0.00 - 0.03 X10*3/uL [facility] Lymphocytes Absolute Auto 1.4 1.2 - 4.9 X10*3/uL [facility] Monocytes Absolute Auto 0.4 0.1 - 1.2 X10*3/uL [facility] Eosinophils Absolute Auto 0.3 0.0 - 0.4 X10*3/uL [facility] Basophils Absolute Auto 0.0 0.0 - 0.2 X10*3/uL [facility] NRBC Abs Auto 0.000 0.0 - 0.012 X10*3/uL [facility] Blood Venous blood specimen / Unknown 01/30/2025 11:26 AM EDT 01/30/2025 1:54 PM EDT Lizeth Phalhoward SALES ENGAGEMENT MANAGER LAB BLOOD ORDERABLES Final Res ult Performing Organization Address [facility] Co de Phone Number [facility] [address] [place] [phone] * RPR (Monitor) with Reflex to??Titer (01/30/2025 11:26 AM EDT) RPR (Monitor) w/Refl Titer NON-REACTI VE NON-REACT MARIAH [facility] Comment:THIS TEST WAS PERFOR MED AT:[facility] [address] [phone] HAYWARD MD Rapid Plasma Reagin Ab Titer TNP [facility] Blood Venous blood specimen / Unknown 01/30/2025 11:26 AM EDT 01/30/2025 1:54 PM EDT Lizeth Phalhoward SALES ENGAGEMENT MANAGER LAB BLOOD ORDERABLES Final Res ult Performing Organization Address [facility]/ZIP Co de Phone Number [facility] [address] [place] [phone] * HIV-1/2 Antigen and Antibodies, Fourth Generation, with Reflexes (01/30/2025 11:26 AM EDT) HIV AB/AG Nonreactive Nonreactive [facility] Comment:HIV-1 p24 Ag and/or HIV-1/HIV-2 Ab not detected.A test result that is nonreactive does not exclude thepossibility of exposure to or infection with HIV-1 and/orHIV-2. Nonreactive results in this assay for individualswith prior exposure to HIV-1 and/or HIV-2 may be due toantigen and antibody levels that are below the limit ofdetection of this assay.The [employer] HIV Ag/Ab Combo assay result andsupplemental assay results should be interpreted inconjunction with the patient's clinical presentation,history and other laboratory results. If the results areinconsistent with clinical evidence, additional testing issuggested to confirm the result. Blood Venous blood specimen / Unknown 01/30/2025 11:26 AM EDT 01/30/2025 1:54 PM EDT Lizeth Bernard [facility] LAB BLOOD ORDERABLES Final Res ult Performing Organization Address [facility] Co de Phone Number [facility] [address] [place] [phone] * Hemoglobin A1c (01/30/2025 11:26 AM EDT) Hemoglobin A1c 5.0 <6.0 % [facility] Comment:Hemoglobin A1C Refer ence Range Adults: 4.8 - 6.0 % Non diabetic: < 6.0 % Goal: < 7.0 %Additional Action Suggested: > 8.0 %Note: Hemoglobin A1c results are invalid for patients with abnormal amounts of HbF. Blood transfusions may impact the HbA1c concentration in the patient sample. Estimated Average Glucose 97 mg/dL [facility] Comment:eAG = Estimated ave rage glucose which is %A1C expressed asaverage glucose, using the formula of the U9L-UznahhmUzsfeop Glucose study (ADAG), Diabetes Care, Vol.31,#8,Jan. 2007 Blood Venous blood specimen / Unknown 01/30/2025 11:26 AM EDT 01/30/2025 1:54 PM EDT Lizeth Bernard [facility] LAB BLOOD ORDERABLES Final Res ult Performing Organization Address City/[facility]/ZIP Co de Phone Number [facility] [address] [place] [address] [phone] * (ABNORMAL) Lipid Panel, Standard (01/30/2025 11:26 AM EDT) Triglycerides 53 <150 mg/dL [facility] Comment:Desirable Triglyceri de: less than 150 mg/dLBorderline High Triglyceride 150-199 mg/dLHigh Triglyceride: 200-499 mg/dLVery High Triglyceride: greater than or equal to 5OO mg/dL Cholesterol 173 <200 mg/dL [facility] Comment:Desirable Cholestero l: less than 200 mg/dLBorderline High Cholesterol: 200-239 mg/dLHigh Cholesterol: greater than 239 mg/dL LDL Cholesterol Calculated 101(H) <100 mg/dL [facility] Comment:Desirable LDL: less than 100 mg/dLNear Optimal/Above Optimal LDL: 110- 129 mg/dLBorderline High LDL: 130-159 mg/dLHigh LDL: 160-189 mg/dLVery High LDL: greater than or equal to 190 mg/dL HDL Cholesterol 62 >40 mg/dL [facility] Comment:Desirable HDL: great er than 40 mg/dL Note: This HDL assay may give artificially low results in patients with liver disease. Blood Venous blood specimen / Unknown 01/30/2025 11:26 AM EDT 01/30/2025 1:54 PM EDT us Lizeth Bernard SALES ENGAGEMENT MANAGER LAB BLOOD ORDERABLES Final Res ult [facility] [address] [place] [phone] [phone] * (ABNORMAL) Comprehensive Metabolic Panel (01/30/2025 11:26 AM EDT) Sodium 140 135 - 145 mmol/L [facility] Potassium 3.9 3.3 - 5.1 mmol/L [facility] Chloride 108 96 - 108 mmol/L [facility] Carbon Dioxide 25 22 - 29 mmol/L [facility] Anion Gap 11(L) 12 - 20 [facility] Urea Nitrogen (BUN) 6(L) 9 - 16 mg/dL [facility] Creatinine, Serum 0.58 0.5 - 1.4 mg/dL [facility] Estimated Glomerular Filt Rate >60 [facility] Comment:Chronic Kidney Disea se: Estimated GFR < 60 mL/min/1.92d3Utuvpi Kidney Disease: Estimated GFR < 15 mL/min/1.73m2 Glucose 97 60 - 115 mg/dL [facility] Calcium 8.8 8.4 - 10.2 mg/dL [facility] Bilirubin, Total 0.7 0.0 - 1.0 mg/dL [facility] Aspartate Amino Transferase 26 5 - 31 U/L [facility] Alanine Aminotransferase 17 0 - 31 U/L [facility] Total Protein 7.4 6.5 - 8.0 g/dL [facility] Albumin Level 4.4 3.5 - 5.0 g/dL [facility] Alkaline Phosphatase 63 39 - 117 U/L [facility] Blood Venous blood specimen / Unknown 01/30/2025 11:26 AM EDT 01/30/2025 1:54 PM EDT us Lizeth Bernard SALES ENGAGEMENT MANAGER LAB BLOOD ORDERABLES Final Res ult [facility] [address] [place] [phone] * HPV mRNA E6/E7 w/Reflex to HPV Genotypes 16, 18/45 (11/06/2022 2:55 PM EDT) HPV nRNA E6/E7 Not Detected Not Detected [facility] Comment:Methodology: Transcr iption-Mediated AmplificationThis assay detects E6/E7 viral messenger RNA (mRNA) from 14high-risk HPV types (16,18,31,33,35,39,45,51,52,56,58,59,66,68).Cervical sources are required for HPV testing.If a vaginal source from a patient who has had atotal hysterectomy with removal of cervix wassubmitted, please contact the testing laboratoryfor alternative testing options.For additional information, please refer [email or web address].[employer]/faq/MUH066r1(This link if provided for information/educational purposes only.)THIS TEST WAS PERFORMED AT:[facility] [place] [phone] HAYWARD MD HPV mRNA E6/E7 TNP [facility] HPV 16 RNA TNP [facility] HPV 18/45 RNA TNP [facility] 11/06/2022 2:55 PM EDT 11/07/2022 9:18 AM EDT [facility] External Provider LAB CYT OLOGY ORDERABLES Final Result [facility] [address] [place] [phone] * Pap Smear (11/06/2022 2:55 PM EDT) 11/06/2022 2:55 PM EDT 11/07/2022 9:15 AM EDT Narrative [facility] - 11/12/2022 3:14 PM EDT ----- ------- Name: Meredith Mcbride Age/Sex: 32/F : 1990 Unit#: [id number] Attend Dr: Talia Yao [facility] Re11/06/22 Status: DEP REF Location: [facility] Disch: ----- ------- SPEC : [id number] RECD: 11/07/22 STATUS: MIGDALIA BREAUX NUM: [id number] SUMANTH: 11/06/221455 [facility] DR: Talia Yao [facility] ENTERED: 11/07/22 SP TYPE: Pap Smr OT DR: Lizeth Bernard ORDERED: Pap Smear Interpretation Satisfactory for evaluation. Negative for intraepithelial lesion or malignancy. HPV mRNA E6/E7: NOT DETECTED This assay detects E6/E7 viral messenger RNA (mRNA) from 14 high-risk HPV types (16, 18, 31, 33, 35, 39, 45, 51, 52, 56, 58, 59, 66, 68) HPV testing performed by [facility], [place], [place]. See reference laboratory pion of the EMR for entire report. Clinical Information LMP: 10/30/22 Previous PAP test: 2020, WNL Material Received ThinPrep-Cervical Copies To: Talia Yao [address] [place] [address] Lizeth Bernard [address] [place] [address] ----- ------- Signed (signature on file) [place] (ASCP) 11/12/22 1514 ----- ------- END OF REPORT [facility] External Provider LAB CYT OLOGY ORDERABLES Final Result [facility] [address], [place] [phone] from Last 3 Months or Most Recently Relevant to Health Maintenance Insurance [employer] Care Teams Preassembler And Inspector Relationship Specialty Start Date End Date Lizeth Bernard FNP [address] [place] [address] PCP - General Family Medicine 02/24/22 Phong Matson MD [address] [place] [phone] Endocrinology 05/15/24 Kristina Mccoy Bowling Floor Manager 09/23/24
--- OUTSIDE RECORDS SUMMARY | 2025-02-21 13:58 | XMS_ITS | Encounter Summary ---
Author Organization [employer] Address [address] [place] [address] 7[address] [place] [address] Care Team Providers Care Photoengraving Retoucher Name Role Phone Lizeth Bernard Primary Care Provider [phone] Phong Matson MD Unavailable [phone] Encounter Details Date Type Department Care Team (Late Contact Info) Description 03/30/2023 Abstract [facility] [address] [place] [address] Lizeth Bernard FNP [address] [place] [address] Social History Tobacco Use Types Packs/Day Years [...] Department Care Team (Late Contact Info) Description 04/19/2025 9:00 AM EDT Office Visit [facility] [address] [place] [address] Yamini Rashid, OD [address] [place] [address] documented as of this encounter Procedures Procedure Name Priority Date/Time Associated Diagnosis Comments PAP/HPV Routine 09/10/2020 documented in this encounter Results * Pap Smear (09/10/2020) Pap Negative for intraephithelial lesion or malignancy Negative for intraephithelial lesion or malignancy, Other Historical Provider HEALTH MAINTENANCE Final Result documented in this encounter Visit Diagnoses Not on filedocumented in this encounter Additional Health Concerns Assessment Noted Time PHQ-9 Depression Total Score: 1 11/19/19 23 3:22 PM EDT documented as of this encounter Care Teams Photoengraving Retoucher Relationship Specialty Start Date End Date Lizeth Bernard FNP [address] [place] [id number] PCP - General Family Medicine 02/24/22 Phong Matson MD [address] [place] [address] [place] [id number] Endocrinology 05/15/24 Kristina Mccoy Service Department Manager 09/23/24 documented as of this encounter
--- OUTSIDE RECORDS SUMMARY | 2025-02-21 13:58 | XMS_ITS | Encounter Summary ---
Author Organization [employer] Address [address] [place] [address] 7t [place] [address] Care Team Providers Care Workers' Compensation Hearings Officer Name Role Phone Lizeth Bernard Primary Care Provider [phone] Phong Matson MD Unavailable [phone] Reason for Visit * Reason Onset Date Comments Appointment Request 07/03/2022 Encounter Details Date Type Department Care Team ([facility] st Contact Info) Description 07/03/2022 Telephone [facility] [address] [place] [address] Lizeth Bernard FNP [address] [place], [place] [id number] Appointment Request Social History Tobacco Use Types [...] to get one done. Please contact pt [phone] Slovak Speaker * Telephone Encounter - Hardik Bravo - 07/03/2022 9:18 AM EST Tc from pt requesting an Physical APPT due to work requiring her to get one Please contact pt at [phone] documented in this encounter Plan of Treatment Upcoming Encounters Date Type Department Care Team (Late st Contact Info) Description 04/19/2025 9:00 AM EDT Office Visit [facility] OPTOMETRY [address] [place] [address] Yamini Rashid, OD [address] [place] [address] documented as of this encounter Visit Diagnoses Not on filedocumented in this encounter Care Teams Workers' Compensation Hearings Officer Relationship Specialty Start Date End Date Lizeth Bernard FNP [address] [place] [address] PCP - General Family Medicine 02/24/22 Phong Matson MD [address] [place] [address] [place] [id number] Endocrinology 05/15/24 Kristina Mccoy Breast Puller 09/23/24 documented as of this encounter
[2025-02-24 18:24] LABS: TS Negative Control Passed; TS Panel A 0; TS Panel B 0; TS Positive Control Passed; TSpotTB Negative (Negative)
== END 2025-02-21 13:11 | disposition home or self-care (01) ==
LOC: HO.CHCLDS 13:10
PROVIDERS: Visit Provider Registered Nurse
DX: Z13.89 Encounter for screening for other disorder (principal); Z11.1 Encounter for screening for respiratory tuberculosis
CPT/HCPCS: 36415; 86481

== ENCOUNTER 2025-04-06 10:15 | Outpatient (REF) | payer MEDICAID, SELFPAY ==
[2025-04-06 14:17] LABS: Free T4 (Free Thyroxine) 1.09 ng/dL (0.71-1.85); Thyroid Stimulating Hormone 3.21 uIU/mL (0.32-4.0)
[2025-04-07 22:19] LABS: Thyroglobulin 0.1 ng/mL; Thyroglobulin Antibodies <1 IU/mL (< or = 1)
== END 2025-04-06 10:16 | disposition home or self-care (01) ==
LOC: HO.10HDL 10:15
PROVIDERS: Visit Provider Student in an Organized Health Care Education/Training Program
DX: E89.0 Postprocedural hypothyroidism (principal); Z85.850 Personal history of malignant neoplasm of thyroid
CPT/HCPCS: 36415; 84432; 84439; 84443; 86800

== ENCOUNTER 2025-04-07 09:56 | Outpatient (AMB) | payer MEDICAID, SELFPAY ==
[2025-04-07 09:58] VITALS: BP 106/68; PULSE 62; O2SAT 98; BMI 31.7
--- NOTE | 2025-04-07 09:58 | MHC.OFFVIS ---
Vital Signs 04/07/25 09:58 Height 5 ft Weight 162 lb 4.163 oz BMI 31.7 BP 106/68 Blood Pressure Location Lt brachial Position Sitting Pulse 62 Pulse Source Pulse Oximeter Pulse Oximetry (%) 98 Oxygen Delivery Method Room Air Intake Visit Reasons: History of thyroid cancer Intake Note: Patient present today for History of thyroid cancer office visit. [employer] Field Coordinator Required: No Accompanied by: Self / Same As Patient Allergies No Known Allergies (No Known Allergies*) Allergy (Verified 04/07/25 10:01) Medication List - Last Reconciled 04/07/25 by Gertrude Sandoval MD cholecalciferol (vitamin D3) 2,000 units PO DAILY doxylamine succinate (Nighttime Sleep-Aid (doxylamine)) 25 mg PO BEDTIME PRN ibuprofen 400 mg PO Q6H PRN levothyroxine 100 mcg PO DAILY multivitamin (Daily Multi-Vitamin tablet) 1 tab PO DAILY no.167-folic acid-dha 400 mcg- 25 mg (One-A-Day ) tabs PO HPI Comments Details: 34-year-old female coming in today for follow up of 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 History of thyroid cancer detail 2019: Diagnosed with multinodular thyroid with thyroid ultrasound revealing a large right midpole nodule measuring 4.1 cm 03/07/2019: FNA biopsy of the nodule was benign [place] category 2 Was subsequently referred to Dr. Clint Cooper at [facility] for right hemithyroidectomy due to compressive symptoms. 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 11/06/2020: Completion thyroidectomy with the official surgical pathology benign 05/01/2021: Remnant ablation with 30.2 mCi of I 131 radioactive iodine. TSH was 76.3, unfortunately no TG or TG antibodies were drawn. 05/10/2021: Whole-body scan revealed intense foci of uptake within the neck, otherwise only physiologic uptake 08/22/2021: TSH 0.11, TG undetectable, negative TG antibody 11/26/2021: TSH 0.29, TG less than 0.1, TG antibody negative 12/04/21: Ultrasound of the neck showed bilateral normal-appearing lymph nodes. 10/24/2022: Whole-body scan done via thyroid hormone withdrawal revealed increased radiotracer uptake in the upper neck in the region of the right thyroidectomy bed and along the thyroglossal duct. Uptake was otherwise physiologic. 10/16/2022: TSH 33.95, TG 0.9, TG antibody negative. 10/31/2022: Ultrasound of the neck revealed multiple abnormal appearing enlarged lymph nodes bilaterally. A right level 1B lymph node with absent hilum and round shape measuring 7 x 5 X 6 mm, a right level 3 lymph node with absent hilum measuring 1.4 X 0.3 X 0.8 cm. On the left side level 3, with a abnormal appearance with absent fatty hilum measuring 1.6 X 0.2 X 0.7 cm. 12/04/2022: Ultrasound by Dr. Albrecht showed abnormal-appearing 0.7 cm lymph node in the right neck at level 1B. No FNA was completed based on size. Decision was made to proceed with high dose 150 mCi of radioactive iodine treatment. 03/17/2023: Underwent radioactive iodine treatment with 152 mCi of I 131. Done with Thyrogen. 03/27/2023: Whole-body scan revealed persistent residual radioactive iodine activity within the neck suggestive of residual thyroid tissue disease. Faint focal increased uptake in the anterior left hemipelvis possibly concerning for metastatic disease. 07/23/2023: Saw Dr. Zambrano at [facility] for 2nd opinion who also performed in office neck ultrasound which did not identify any abnormal lymph nodes. 09/23/2023: CT of the pelvis with contrast did not identify any metastatic lesion in the pelvis. 12/08/2023: Soft tissue neck CT identified chronic postoperative changes of thyroidectomy. No abnormal mass or nodular enhancement, no pathogen logically enlarged lymph nodes. Interval history 11/22/2024 s/p c section and tubal ligation 09/05/24 no complications This was her 3 rd pregancy , has a10 year old and 8 year old . 10/25/2024: TSH 0.58, free T4 1.09, TG less than 0.1, TG antibody less than 1 10/27/2024: Ultrasound of the neck, I reviewed the images myself, mostly shows normal-appearing lymph nodes there is a left level 2 lymph node measuring 1.6 X 0.6 X1.7 cm which does not have a clear hilum, we will keep an eye on this. Interval history 04/07/2025 04/06/2025: TSH 3.21, free T4 1.09, thyroglobulin markers pending currently on levothyroxine 100 mcg daily stopped now baby on formula Denies any compressive symptoms. Denies any symptoms of hypothyroidism or hyperthyroidism. Physical exam General: sitting comfortably in no acute distress HEENT: normocephalic/atraumatic Neck: supple, no palpable lymph nodes Cardiac: normal heart sounds Pulm: normal breath sounds B/L, no added breath sounds Extremities: no edema, no signs of myxedema Neuro: AAO x3, Speech: normal, no facial droop, moving all 4 extremities Laboratory Tests 12/03/20 02/19/21 05/01/21 15:03 15:25 09:25 TSH 0.20 L 0.61 76.30 H Free T4 1.30 Thyroglobulin 0.2 L 0.2 L Thyroglobulin Antibody 3 H 2 H <1 08/22/21 11/26/21 08/12/22 15:36 11:07 07:47 TSH 0.11 L 0.29 L 0.06 L Free T4 1.01 1.16 1.19 Thyroglobulin <0.1 L <0.1 L <0.1 Thyroglobulin Antibody <1 <1 <1 10/16/22 10/21/22 11/12/22 07:59 10: 15:09 TSH 33.95 H 53.76 H 0.94 Free T4 < 0.42 L < 0.42 L 1.41 Thyroglobulin 0.9 H 0.1 H Thyroglobulin Antibody <1 <1 12/16/22 05/25/23 09/23/23 08:56 10:44 08:20 TSH 0.04 L 0.17 L 0.07 L Free T4 1.57 1.16 1.33 Thyroglobulin <0.1 <0.1 Thyroglobulin Antibody <1 <1 11/03/23 01/11/24 01/18/24 07:59 09:05 10:30 TSH 0.14 L 2.10 2.58 Free T4 1.23 1.03 0.97 Thyroglobulin Thyroglobulin Antibody 02/15/24 03/21/24 04/28/24 10:16 09:53 12:20 TSH 4.09 H 1.88 1.51 Free T4 1.03 1.19 1.07 Thyroglobulin Thyroglobulin Antibody 06/09/24 08/03/24 12:28 09:24 TSH 0.60 1.24 Free T4 0.97 1.05 Thyroglobulin Thyroglobulin Antibody Laboratory Tests 10/25/24 13:00 TSH 0.58 Free T4 1.09 Thyroglobulin <0.1 Thyroglobulin Antibody <1 Laboratory Tests 04/06/25 10:20 TSH 3.21 Free T4 1.09 EXAMINATION: 10/27/24 US SOFT TISSUE HEAD AND NECK LIMITED. 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 Status post thyroidectomy... COMPARISON: December 04, 2022. TECHNIQUE: Linear transducer donovan-scale and color Doppler examination with attention to the region of the thyroid. FINDINGS: Multiple at least, 11, less than 1.1 cm cervical lymph nodes throughout the interrogated neck at the levels 1 2 and 5, bilaterally. US/US soft tiss head and/or neck IMPRESSION: Nonspecific prominent cervical lymph nodes.. Electronically signed by: Dyllan Ricci MD 10/28/2024 08:[address] SOFT TISSUE NECK WITH CONTRAST 12/08/23 CLINICAL INFORMATION: Malignant tumor of the thyroid. COMPARISON: Soft tissue neck ultrasound 12/04/2022. TECHNIQUE: Following the intravenous administration of 60 mL of Omnipaque 350 intravenous contrast, helical imaging was performed in the axial plane with generation of coronal and sagittal reformatted images. This CT examination was performed using dose optimization techniques as appropriate, variously including the following: *Automated exposure control *Adjustment of mA and/or kV according to patient size (this includes techniques or standardized protocols for targeted exams where dose is matched to indication/reason for exam; i.e. extremities or head) *Use of iterative reconstruction technique DLP: 462 mGy-cm FINDINGS: There are chronic postoperative changes of a thyroid resection. The remainder of the visualized visceral soft tissues are unremarkable. There is no abnormal mass or nodular enhancement at the thyroidectomy bed. No pathologically enlarged cervical lymph nodes. No mediastinal or axillary adenopathy is visualized within the [id number]-lv-oaud of this examination. Pharyngeal mucosal spaces are symmetric. Parapharyngeal and retromaxillary fat is preserved. [employer] Inspector spaces are symmetric. Parotid and submandibular glands are normal. The tongue base and epiglottis are normal. Preepiglottic fat is preserved. Glottic and subglottic airways are patent. Lung apices are clear. Aortic arch apex is normal. Cervical carotid and vertebral arteries are patent. Internal jugular veins fill symmetrically. No acute osseous finding. Specific no worrisome lytic or blastic osseous lesion. No spinal canal compromise. The skull base is intact. No mastoid or middle ear effusion. No active paranasal sinus disease. Limited visualization of intracranial anatomy reveals no abnormal finding. CT/CT soft tissue neck w IV con IMPRESSION: There are chronic postoperative changes of a thyroid resection. Otherwise unremarkable examination. No abnormal mass or nodular enhancement at the thyroidectomy bed. No pathologically enlarged cervical lymph nodes. CT PELVIS WITH CONTRAST 09/23/23 CLINICAL INFORMATION: Malignant neoplasm of thyroid gland, additional notes/special instructions, thyroid cancer with uptake on total body scan in pelvis. Please correlate with CT scan. COMPARISON: Pelvic ultrasound 11/26/2021. TECHNIQUE: Helical scanning was performed with submillimeter collimation through the pelvis with the use of oral contrast and during bolus intravenous injection of 85 mL of Omnipaque 350 intravenous contrast. Sagittal and coronal multiplanar 2-D reconstructions were obtained. This CT examination was performed using dose optimization techniques as appropriate, variously including the following: *Automated exposure control *Adjustment of mA and/or kV according to patient size (this includes techniques or standardized protocols for targeted exams where dose is matched to indication/reason for exam; i.e. extremities or head) *Use of iterative reconstruction technique DLP: 436 mGy-cm FINDINGS: PELVIS: Uterus is anteverted. There is a slightly lobular border. And IUD which has been seen on prior pelvic ultrasounds is not seen on the current study. A small 1.5 cm right ovarian cyst is present. No free fluid is present in the cul-de-sac. No retroperitoneal adenopathy. The visualized bowel is unremarkable. OSSEOUS STRUCTURES: No abnormalities detected in the visualized osseous structures. CT/CT pelvis w IV con IMPRESSION: 1. No evidence of metastatic disease in the pelvis. 2. Incidental note made of a small 1.5 cm right ovarian cyst. 3. An IUD is not seen on the current study. 4. Slightly lobular uterine border could represent fibroids. US Head and Neck: 10/31/2022 THYROID BED: Prior thyroidectomy. No residual thyroid tissue demonstrated in the thyroid bed. No cystic or solid nodules demonstrated in the thyroid bed. There is a new midline level 1A lymph node that measures 6 x 3 x 7 mm in sagittal AP and transverse dimension. This is normal in size and demonstrate normal ultrasound morphology and flow. There are 7 lymph nodes identified in the right neck. There is a level 1A lymph node that is normal appearing and stable. There is a newly appreciated 1B lymph node that measures 7 x 5 x 6 mm and is normal in size. This demonstrates abnormal morphology with absent fatty hilum and round shape. There is a level 2 lymph node that has normal ultrasound morphology and is normal in size but slightly increased in size compared to prior prior exam. There is a new level 3 lymph node that is upper normal in size measuring 1.6 x 0.3 x 0.9 cm and has normal ultrasound morphology. There is a newly appreciated right level 3 lymph node that is upper normal in size measuring 1.4 x 0.3 x 0.8 cm. This has abnormal morphology with absent fatty hilum. There is a newly appreciated right level 4 lymph node that is upper normal in size measuring 1.1 x 0.2 x 0.9 cm and has normal ultrasound morphology. There is a newly appreciated slightly enlarged right level 5A lymph node that measures 1.4 x 0.3 x 1.2 cm and has normal ultrasound morphology. There are 2 newly appreciated left cervical lymph nodes. There is a level 1 lymph node that is upper normal in size measuring 0.8 x 0.7 x 1.5 cm and has normal ultrasound morphology. There is an upper normal level 3 lymph node that measures 1.6 x 0.2 x 0.7 cm and has abnormal ultrasound morphology with absent fatty hilum. There are 2 adjacent level 5A normal-appearing lymph nodes that was measured as one lymph node on prior exam. These are normal in size and have normal ultrasound morphology. US SOFT TISSUE NECK 12/04/21 CLINICAL INFORMATION: Personal history of malignant neoplasm of thyroid. COMPARISON: Ultrasound soft tissue head/neck thyroid dated 01/23/2020 and 02/21/2019. TECHNIQUE: Ultrasound of the neck soft tissues is performed with high- frequency donovan-scale imaging and color Doppler. FINDINGS: THYROID BED: Prior thyroidectomy. No residual thyroid tissue demonstrated in the thyroid bed. No cystic or solid nodules demonstrated in the thyroid bed. RIGHT NECK SOFT TISSUES: Scattered architecturally normal nodes are present. The nodes show normal fatty hilus, normal cortical thickness, and no cystic change or calcification. No abnormal color flow. The largest nodes are as follows: Level Ib: 0.56 x 0.31 x 0.51 cm. Normal jorge luis architecture. Level Ib: 0.75 x 0.22 x 0.88 cm. Normal jorge luis architecture. Level Ib: 0.93 x 0.64 x 1.1 cm. Normal jorge luis architecture. LEFT NECK SOFT TISSUES: Scattered architecturally normal nodes are present. The nodes show normal fatty hilus, normal cortical thickness, and no cystic change or calcification. No abnormal color flow. The largest nodes are as follows: Level 2: 1.3 x 0.44 x 0.83 cm. Normal jorge luis architecture. Level 2: 0.92 x 0.27 x 0.74 cm. Normal jorge luis architecture. Level 2: 0.80 x 0.31 x 0.52 cm. Normal jorge luis architecture. Level 2: 0.60 x 0.38 x 0.76 cm. Normal jorge luis architecture. Level 2: 1.9 x 0.35 x 1.1 cm. Normal jorge luis architecture. US/US soft tiss head and/or neck IMPRESSION: 1. Benign bilateral neck lymph nodes most of them measuring less than 1 cm exophytic with the largest left level 2 lymph node measuring 1.9 cm. It has benign ultrasound characteristics. 2. If clinically indicated, further evaluation of the neck soft tissues and nodes may be performed with CT soft tissue neck with intravenous contrast. [facility] Medical History (Updated 08/22/24 @ 13:27 by Gertrude Sandoval MD) Local recurrence of cancer of thyroid gland Acne History of thyroid cancer Hypothyroidism Thyroid cancer Vitamin D deficiency Thyroid nodule Surgical History Surgical history of tubal ligation Hx of total thyroidectomy Hx of knee surgery Hx of section Family History Father Vitamin D deficiency Mother Depression Hypertension Water retention Thyroid nodule Paternal Grandfather Colon cancer Social History Alcohol intake: never Patient Tobacco Use Status: Never used Tobacco Sexual orientation: Straight/Heterosexual Gender identity: Female Female Reproductive History Menstrual Age of Menarche: 13 Physical Exam Vital Signs: Last Vital Signs Pulse 62 04/07/25 09:58 BP 106/68 04/07/25 09:58 Pulse Ox 98 04/07/25 09:58 Oxygen Delivery Method Room Air 04/07/25 09:58 BMI result Body Mass Index 31.7 Assessment & Plan Assessment & Plan (1) History of thyroid cancer: Code(s): Z85.850 - Personal history of malignant neoplasm of thyroid Category: Medical Plan: 34-year-old female coming in today for follow up of 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 She is now , had c section on 09/05/2024. Currently . Her last tumor markers were checked 10/25/2024: TSH 0.58, free T4 1.09, TG less than 0.1, TG antibody less than 1 10/27/2024: Ultrasound of the neck, I reviewed the images myself, mostly shows normal-appearing lymph nodes there is a left level 2 lymph node measuring 1.6 X 0.6 X1.7 cm which does not have a clear hilum, we will keep an eye on this. Currently I would classify her as indeterminate response to therapy given questionable lymph nodes plus history of possible recurrence, and I would aim for TSH between 0.1-0.5, Her unstimulated thyroglobulin from September 2024 was undetectable and stimulated thyroglobulin from February 2024 was less than 1, which are both reassuring, so would probably aim for a TSH closer to 0.5. 04/06/2025: TSH 3.21, free T4 1.09, thyroglobulin markers pending currently on levothyroxine 100 mcg daily In indeterminate response, 15% to 20% we will have structural disease identified during follow-up, however in the remainder of the nonspecific changes are either stable or resolved, less than 1% have disease specific I will wait for her thyroglobulin markers from the most recent blood work to see how to adjust her levothyroxine. Plan: -continue levothyroxine 100 mcg daily for now, once results of tumor markers are back, we will plan to increase levothyroxine to 112 mcg daily given most recent TSH is above goal -ordered ultrasound of the neck to be done in October 2025 with follow up in November 2025 (2) Hypothyroidism: Code(s): E03.9 - Hypothyroidism, unspecified Category: Medical Qualifiers: Hypothyroidism type: postoperative Qualified Code(s): E89.0 - Postprocedural hypothyroidism Plan: Currently I would classify her as indeterminate response to therapy given questionable lymph nodes plus history of possible recurrence, and I would aim for TSH between 0.1-0.5, Her unstimulated thyroglobulin from September 2024 was undetectable and stimulated thyroglobulin from February 2024 was less than 1, which are both reassuring, so would probably aim for a TSH closer to 0.5. 04/06/2025: TSH 3.21, free T4 1.09, thyroglobulin markers pending currently on levothyroxine 100 mcg daily I will wait for her thyroglobulin markers from the most recent blood work to see how to adjust her levothyroxine. Plan: -continue levothyroxine 100 mcg daily for now, once results of tumor markers are back, we will plan to increase levothyroxine to 112 mcg daily given most recent TSH is above goal Plan See above Orders: Orders US soft tiss head and/or neck 11/06/25 Z85.850 - Personal history of malignant neoplasm of thyroid Patient Instructions: For now continue levothyroxine 100 mcg daily, once all of your blood work results are back we will give you a call letting you know if we make any changes to the dose of the levothyroxine Do ultrasound of the neck sometime in October 2025, somebody we will call you to schedule this, please make sure this is done prior to your next follow up with me in November 2025 Always do thyroid blood work 1-2 weeks prior to your next follow up with me, your next follow up will be in November 2025 Coding Level of Care Code Est Pt Level 4 (96597) Complex EM visit Add On G2211 Diagnoses History of thyroid cancer Z85.850 Postoperative hypothyroidism E89.0 Hypothyroidism type: postoperative
== END 2025-04-07 10:21 | disposition home or self-care (01) ==
LOC: HO.ENCR 09:56
PROVIDERS: PCP Physician Assistant; Referring Provider Physician Assistant; Visit Provider Student in an Organized Health Care Education/Training Program
DX: Z85.850 Personal history of malignant neoplasm of thyroid (principal); E89.0 Postprocedural hypothyroidism
CPT/HCPCS: 99214

== ENCOUNTER → 2025-04-07 09:56 | Outpatient (BNVA) | payer MEDICAID, SELFPAY | PROVIDERS: PCP Physician Assistant; Visit Provider Student in an Organized Health Care Education/Training Program | DX: E89.0 Postprocedural hypothyroidism (principal); Z85.850 Personal history of malignant neoplasm of thyroid | CPT/HCPCS: 99212 ==

== ENCOUNTER 2025-04-18 09:57 | Outpatient (AMB) | payer MEDICAID, SELFPAY ==
[2025-04-18 09:59] VITALS: BMI 31.6
--- NOTE | 2025-04-18 09:59 | MHC.OFFVIS ---
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 Patient referred by [facility] for possible De Quervain's tenosynovitis. Patient states pain began around 6 months ago after giving to her son. She reports pain on the radial aspect of the right wrist, worse during the night or early in the morning. She is experiencing difficulty bending at the IP of the right thumb and a clicking sensation. She has tried diclofenac gel without relief. 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 Patient referred by [facility] for possible De Quervain's tenosynovitis. Patient states pain began around 6 months ago after giving to her son. She reports pain on the radial aspect of the right wrist, worse during the night or early in the morning. She is experiencing difficulty bending at the IP of the right thumb and a clicking sensation. She has tried diclofenac gel without relief. 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 Acne History of thyroid cancer Hypothyroidism Thyroid cancer Vitamin D deficiency Thyroid nodule Surgical History Surgical history of tubal ligation Hx of total thyroidectomy Hx of knee surgery Hx of section Family History Father Vitamin D deficiency Mother Depression Hypertension Water retention Thyroid nodule Paternal Grandfather Colon cancer Social History (Updated 04/18/25 @ 10:07 by MARCELINO Reddy) Alcohol intake: current Alcohol intake frequency: holidays/special occasions only Patient Tobacco Use Status: Never used Tobacco Current occupational status: employed 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 Neuro: Normal sensation of the tips of all digits of the right hand at this time Vascular: Cap refill brisk Pain: Tenderness to palpation of 1st dorsal compartment of right wrist Positive Villa of the right ROM: Patient is able to make a closed fist and extend all digits of the right hand fully Skin: No lacerations or abrasions. General: No ecchymosis, erythema, or evidence of infection. Psych: Appears grossly normal Affect normal Attitude cooperative Results Reviewed Results Reviewed: X-rays obtained in the office today and independently reviewed by me, Brad Dean PA-C, demonstrate no fracture or acute bony abnormality of the right hand or wrist. Assessment & Plan Assessment & Plan (1) De Quervain's tenosynovitis, right: Code(s): M65.4 - Radial styloid tenosynovitis [de Quervain] Category: Medical Plan 1. De Quervain tenosynovitis, right Patient is educated about this condition Patient is educated about the typical recovery course At this time, patient is provided with a comfort cool thumb spica brace to be worn when her thumb was particularly bothering her Patient is also referred to OT for range of motion and strengthening of the right wrist If patient does not experience relief with OT, can call us for discussion of further treatment options, including injections Patient understands this in his amenable to this plan Orders: Orders XR hand RT min 3V 04/18/25 M79.641 - Pain in right hand OT Evaluation and Treatment Today M65.4 - Radial styloid tenosynovitis [de Quervain] Coding Level of Care Code New Pt Level 3 (72370) Diagnoses De Quervain's tenosynovitis, right M65.4
--- OUTSIDE RECORDS SUMMARY | 2025-04-18 11:31 | XMS_ITS | Encounter Summary ---
Author Organization [employer] Address [address] [place] [address] [address] [place] [address] Care Team Providers Care Performance Improvement Analyst Name Role Phone Lizeth Bernard Primary Care Provider [phone] Phong Matson MD Unavailable [phone] Reason for Visit * Reason Onset Date Comments Appointment Request 07/03/2022 Encounter Details Date Type Department Care Team ([facility] st Contact Info) Description 07/03/2022 Telephone [facility] [address] [place] [address] Lizeth Bernard FNP [address] [place], [place] [id number] Appointment Request Social History Tobacco Use Types [...] to get one done. Please contact pt [phone] Burmese Speaker * Telephone Encounter - Hardik Bravo - 07/03/2022 9:18 AM EST Tc from pt requesting an Physical APPT due to work requiring her to get one Please contact pt at [phone] documented in this encounter Plan of Treatment Upcoming Encounters Date Type Department Care Team (Late st Contact Info) Description 04/19/2025 9:00 AM EDT Office Visit [facility] [address] [place] [address] Yamini Rashid, OD [address] [place] [address] documented as of this encounter Visit Diagnoses Not on filedocumented in this encounter Care Teams Performance Improvement Analyst Relationship Specialty Start Date End Date Lizeth Bernard FNP [address] [place] [address] PCP - General Family Medicine 02/24/22 Phong Matson MD [address] [place] [address] [place] [id number] Endocrinology 05/15/24 Kristina Mccoy Software Analyst 09/23/24 documented as of this encounter
--- OUTSIDE RECORDS SUMMARY | 2025-04-18 11:31 | XMS_ITS | Encounter Summary ---
Author Organization [employer] Address [address] [place] [address] [address] [place] [address] Care Team Providers Care Telecommunication Lines Repairer Name Role Phone Lizeth Bernard Primary Care Provider [phone] Phong Matson MD Unavailable [phone] Encounter Details Date Type Department Care Team (Late Contact Info) Description 03/30/2023 Abstract [facility] [address] [place] [address] Lizeth Bernard FNP [address] [place] [address] Social History Tobacco Use Types Packs/Day Years [...] Description 04/19/2025 9:00 AM EDT Office Visit [facility] [address] [place] [address] Yamini Rashid, OD [address] [place] [address] documented as of this encounter Procedures Procedure [...] documented as of this encounter Care Teams Telecommunication Lines Repairer Relationship Specialty Start Date End Date Lizeth Bernard FNP [address] [place] [address] PCP - General Family Medicine 02/24/22 Phong Matson MD [address] [place] [address] [place] [address] Endocrinology 05/15/24 Kristina Mccoy Chef Instructor 09/23/24 documented as of this encounter
--- OUTSIDE RECORDS SUMMARY | 2025-04-18 11:31 | XMS_ITS | Encounter Summary ---
Author Organization [employer] Address [address] [facility] [address] [place] [address] Care Team Providers Care Software Systems Architect Name Role Phone Lizeth Bernard Primary Care Provider [phone] Phong Matson MD Unavailable [phone] Reason for Visit * Reason Onset Date Comments Nurse Triage 10/07/2023 Encounter Details Date Type Department Care Team ([facility] st Contact Info) Description 10/07/2023 Telephone [facility] [address] [place] [address] Lizeth Bernard FNP [address] [place], [place] [phone] Nurse Triage Social History Tobacco Use Types [...] 10/07/2023 1:02 PM EDT Triage call with [employer] Manager [place] [id number] Pt reports salivary gland pain on left side. Pt has had this a month ago affecting the right side. Pt reports neg for fever, pain is on left side with some swelling noted left lower cheek/jaw and under left ear area. Pt reports a bitter taste with eating as well. [facility] [address] [place]. Pt agreed [...] salivary glands The caller accepted this outcome Belarusian speaker documented in this encounter Plan of Treatment Upcoming Encounters Date Type Department Care Team (Late st Contact Info) Description 04/19/2025 9:00 AM EDT Office Visit [facility] [address] [place] [address] Yamini Rashid, OD [address] [place] [address] documented as of this encounter Visit Diagnoses Not on filedocumented in this encounter Additional Health Concerns Assessment Noted Time PHQ-9 Depression Total Score: 1 11/19/19 23 3:22 PM EDT documented as of this encounter Care Teams Software Systems Architect Relationship Specialty Start Date End Date Lizeth Bernard FNP [address] [place] [address] PCP - General Family Medicine 02/24/22 Phong Matson MD [address] [place] [address] [place] [address] Endocrinology 05/15/24 Kristina Mccoy Assistant Manager Of Operations 09/23/24 documented as of this encounter
--- OUTSIDE RECORDS SUMMARY | 2025-04-18 11:31 | XMS_ITS | Encounter Summary ---
Author Organization [employer] Address [address] [facility] [address] [place] [address] Care Team Providers Care Bander And Cellophaner Helper Machine Name Role Phone Lizeth Bernard Primary Care Provider [phone] Phong Matson MD Unavailable [phone] Encounter Details Date Type Department Care Team ([facility] Contact Info) Description 03/03/2025 Results Follow-Up [facility] [address] [place], [place] [phone] Lizeth Bernard FNP [address] [place] [address] [employer] Social History Tobacco Use Types Packs/Day Years [...] 9:00 AM EDT Office Visit [facility] [address] [place] [address] Rachid, Yamini, OD [address] [place] [address] documented as of this encounter Visit Diagnoses Not on filedocumented in this encounter Additional Health Concerns Assessment Noted Time PHQ-9 Depression Total Score: 0 01/31/20 11:15 AM EDT documented as of this encounter Care Teams Bander And Cellophaner Helper Machine Relationship Specialty Start Date End Date Lizeth Bernard FNP [address] [place] [address] PCP - General Family Medicine 02/24/22 Phong Matson MD [address] [place] [address] [place] [address] Endocrinology 05/15/24 Kristina Mccoy Software Quality Assurance Analyst 09/23/24 documented as of this encounter
--- OUTSIDE RECORDS SUMMARY | 2025-04-18 11:31 | XMS_ITS | Clinical Summary ---
Author Organization [employer] Address [address] [place] [address] 7[address] [place] [address] Care Team Providers Care Grid Inspector Name Role Phone Lizeth Bernard VICTORINO Primary Care Provider [phone] Phong Matson MD Unavailable [phone] Allergies Active Allergy Reactions Criticality Noted Date Comments Lactose 12/04/2022 Medications acetaminophen (Tylenol 8 Hour) 650 MG ER tablet Take 1 tablet by mouth every 8 (eight) hours. 2 Active ibuprofen 600 MG tablet TOME GISEL TABLETA CADA OCHO HORAS CUANDO SEA NECESARIO 2 Active Vit-Fe Fumarate-FA (M-Choco Plus) 27-1 MG tablet TOME GISEL TABLETA TODOS LOS D 3 Active cholecalciferol 50 MCG (1999 UT) [...] as needed. 50 g 3 5 Active Active Problems Problem Noted Date Diagnosed [...] Jan 2024 - Dr. Fierro at [facility]. Suspected possibly d/t viral injury exacerbated by [...] (01/30/2025): Pap: NILM HPV neg 11/06/22 by [facility] LATHE OPERATOR Talia Yao. Following with [facility] as of 2024. Last PE: 01/30/25 Acne vulgaris 11/19/2022 Assessment & Plan (02/18/2023 6:43 PM EDT): Inflammatory papules and pustules on face, back and chest clear Tretinoin 0.025% cream sent to [facility] Doxycycline on hold given upcoming thyroid [...] Biopsied by IR 03/07/2019 with benign cytology (Emerson Category II). Subsequent R hemithyroidectomy d/t compressive [...] Biopsied by IR 03/07/2019 with benign cytology (Emerson Category II). Subsequent R hemithyroidectomy d/t compressive [...] Biopsied by IR 03/07/2019 with benign cytology (Emerson Category II). Subsequent R hemithyroidectomy d/t compressive [...] goal: normal range <2.5 during Following with [facility] Lab Results Component Value Date TSH 0.58 10/25/2024 Sickle cell trait 08/14/2016 Dyschromia 12/02/2011 Resolved Problems Problem Noted Date Diagnosed Date Resolved Date History of total thyroidectomy 12/12/2020 01/30/2025 Encounters Date Type Department Care Team Description 04/12/2025 Travel 03/29/[address] [address] Lizeth Bernard FNP Care Management (C3CM follow up call) 03/03/2025 Results Follow-Up [facility] [address] [place] [address] Lizeth Bernard FNP T-SPOT .TB 02/20/2025 Telephone [facility] [address] [place] [address] Lizeth Bernard FNP Lab Orders 02/16/[address] [address] Lizeth Bernard FNP Care Management (C3CM follow up call) 02/02/[address] [address] Lizeth Bernard FNP Results 01/30/2025 10:30 AM EDT Office Visit [facility] [address] [place] [address] Lizeth Bernard FNP Encounter for routine history and physical examination of adult (Primary Dx); Healthcare maintenance; Postoperative hypothyroidism; Malignant tumor of thyroid gland (CMS/HCC); Vitamin D deficiency; Chronic pain of right thumb; Tendonitis of right hand 01/30/2025 Travel 01/23/2025 Patient Outreach [address] [address] Lizeth Bernard FNP Pre-visit Planning (SDOH screening completed on 10/21/24 ) 01/23/[address] [address] Lizeth Bernard FNP Care Management (C3CM follow up call) from [...] AM EDT Office Visit [facility] [address] [place] [address], [place] [address] Yamini Rashid, OD [address] [place] [address] Health Maintenance Due Date Last Done Comments Family Planning (PISQ) 09/14/2007 Hepatitis C Screening 2010 COVID-19 Vaccine ( season) 2025 07/03/2022, 12/19/2020 Influenza Vaccine (#1) 2025 , 04/18/2019, 04/14/2016, Additional history exists Alcohol/Substance Use Screening 05/13/2025 05/13/2024 SDOH Screening 10/21/2025 10/21/2024 Depression Screening 01/30/2026 [...] Procedure Name Priority Date/Time Associated Diagnosis Comments T-SPOT(R).TB Routine 02/21/2025 1:14 PM EDT Screening due VITAMIN D,25-OH,TOTAL,IA Routine 01/30/2025 11:26 AM EDT [...] Recently Relevant to Health Maintenance Results * T-SPOT??.TB (02/21/2025 1:14 PM EDT) Pathologist [facility] T Spot TB Negative Negative [facility] Comment:A negative test resu lt does not exclude the possibilityof exposure to or infection with Mycobacteriumtuberculosis (M. tuberculosis). Patients with recentexposure to TB infected individuals exhibiting anegative T-SPOT.TB result should be considered forretesting within 6 weeks or if other relevant clinicalsymptoms indicate. Results from T-SPOT.TB testing mustbe used in conjunction with each individual'sepidemiological history, current medical status,and results of other diagnostic evaluations.The T-SPOT.TB test is qualitative and results arereported as positive, borderline, or negative, giventhat the test controls perform as expected. In linewith the Centers for Disease Control and Prevention's2010 recommendation to report quantitative measurementsalongside the qualitative result, the laboratoryprovides spot counts for informational purposes only.The T-SPOT.TB test should not be interpreted as aquantitative test. TS PANEL A 0 [facility] TS PANEL B 0 [facility] Negative Control Passed [facility] Positive Control Passed [facility] Comment:For additional infor veronique, please refer tohttp://education.SavingStar/faq/BRZ261(This link is being provided for informational/educational purposes only.)THIS TEST WAS PERFORMED AT:[employer] [place] [id number] [place] [phone] VALLADARES MD,PHD 02/21/2025 1:14 PM EDT 02/21/2025 1:58 PM EDT us Lizeth Bernard [facility] BLOOD ORDERABLES Final Res ult [facility] [address] [place] [address] [phone] * Vitamin D, 25-Hydroxy, Total, Immunoassay (01/30/2025 11:26 AM EDT) [facility] Vitamin D 25-OH Total 43.2 >30 ng/mL [facility] Comment: Health Based Reference Values*< 20 ng/mL Xdukpixpg19-07 ng/mL Insufficient> 30 ng/mL Sufficient*Jacklyn PATRICK. N [...] 01/30/2025 1:54 PM EDT us Lizeth Bernard [facility] LAB BLOOD ORDERABLES Final Res ult [facility] [address] [place] [phone] * (ABNORMAL) CBC auto differential (01/30/2025 11:26 AM EDT) White Blood Count 7.4 4.8 - 10.8 X10*3/uL [facility] Red Blood Count 4.64 4.20 - 5.50 X10*6/uL [facility] Hemoglobin 12.9 12.0 - 16.0 g/dl [facility] Hematocrit 37.8 37.0 - 47.0 % [facility] Mean Corpuscular Volume 81.5 80.0 - 98.0 fL [facility] Mean Corpuscular Hemoglobin 27.8 27.0 - 33.0 pg [facility] Mean Corpuscular HGB Conc 34.1 31.0 - 35.0 g/dl [facility] Red Cell Distribution Width 14.7 11.0 - 16.0 % [facility] Platelet Count 258 160 - 400 X10*3/uL [facility] Mean Platelet Volume 10.3 9.4 - 12.3 fL [facility] Neutrophils Percent Auto 71.0 45 - 73 % [facility] Imm Gran Pct Auto 0.3 0.0 - 0.4 % [facility] Lymphocytes Percent Auto 19.6(L) 20 - 40 % [facility] Monocytes Percent Auto 5.2 2 - 11 % [facility] Eosinophils Percent Auto 3.4 0 - 4 % [facility] Basophils Percent Auto 0.5 0 - 2 % [facility] NRBC Pct Auto 0.0 0.0 - 0.2 /100WBC [facility] Neutrophils Absolute Auto 5.2 2.0 - 8.3 x10*3/uL [facility] Imm Gran Abs Auto 0.02 0.00 - 0.03 X10*3/uL [facility] Lymphocytes Absolute Auto 1.4 1.2 - 4.9 X10*3/uL [facility] Monocytes Absolute Auto 0.4 0.1 - 1.2 X10*3/uL [facility] Eosinophils Absolute Auto 0.3 0.0 - 0.4 X10*3/uL [facility] Basophils Absolute Auto 0.0 0.0 - 0.2 X10*3/uL [facility] NRBC Abs Auto 0.000 0.0 - 0.012 X10*3/uL [facility] Blood Venous blood specimen / Unknown 01/30/2025 11:26 AM EDT 01/30/2025 1:54 PM EDT us Lizeth Bernard [facility] BLOOD ORDERABLES Final Res ult [facility] [address] [place] [phone] * RPR (Monitor) with Reflex to??Titer (01/30/2025 11:26 AM EDT) RPR (Monitor) w/Refl Titer NON-REACTI VE NON-REACT MARIAH [facility] Comment:THIS TEST WAS PERFOR MED AT:[facility] [place] [phone] HAYWARD MD Rapid Plasma Reagin Ab Titer TNP [facility] Blood Venous blood specimen / Unknown 01/30/2025 11:26 AM EDT 01/30/2025 1:54 PM EDT Lizeth Bernard [facility] [employer] [facility] BLOOD ORDERABLES Final Res ult [facility] [address] [place] [phone] * HIV-1/2 Antigen and Antibodies, Fourth Generation, with Reflexes (01/30/2025 11:26 AM EDT) HIV AB/AG Nonreactive Nonreactive [facility] Comment:HIV-1 p24 Ag and/or HIV-1/HIV-2 Ab not detected.A test result that is nonreactive does not exclude thepossibility of exposure to or infection with HIV-1 and/orHIV-2. Nonreactive results in this assay for individualswith prior exposure to HIV-1 and/or HIV-2 may be due toantigen and antibody levels that are below the limit ofdetection of this assay.The [employer] [place] HIV Ag/Ab Combo assay result andsupplemental assay results should be interpreted inconjunction with the patient's clinical presentation,history and other laboratory results. If the results areinconsistent with clinical evidence, additional testing issuggested to confirm the result. Blood Venous blood specimen / Unknown 01/30/2025 11:26 AM EDT 01/30/2025 1:54 PM EDT Lizeth Bernard [facility] [employer] [facility] BLOOD ORDERABLES Final Res ult Performing Organization Address [facility]/ZIP Co de Phone Number [facility] [address] [place] [address] [phone] * Hemoglobin A1c (01/30/2025 11:26 AM EDT) Hemoglobin A1c 5.0 <6.0 % [facility] Comment:Hemoglobin A1C Refer ence Range Adults: 4.8 - 6.0 % Non diabetic: < 6.0 % Goal: < 7.0 %Additional Action Suggested: > 8.0 %Note: Hemoglobin A1c results are invalid for patients with abnormal amounts of HbF. Blood transfusions may impact the HbA1c concentration in the patient sample. Estimated Average Glucose 97 mg/dL [facility] Comment:eAG = Estimated ave rage glucose which is %A1C expressed asaverage glucose, using the formula of the L0Z-NpioshwIafyqyt Glucose study (ADAG), Diabetes Care, Vol.31,#8,Jan. 2007 Blood Venous blood specimen / Unknown 01/30/2025 11:26 AM EDT 01/30/2025 1:54 PM EDT us Lizeth Bernard [facility] BLOOD ORDERABLES Final Res ult Performing Organization Address [facility]/ZIP Co de Phone Number [facility] [address] [place] [phone] * (ABNORMAL) Lipid Panel, Standard (01/30/2025 11:26 AM EDT) Triglycerides 53 <150 mg/dL [facility] Comment:Desirable Triglyceri de: less than 150 mg/dLBorderline High Triglyceride 150-199 mg/dLHigh Triglyceride: 200-499 mg/dLVery High Triglyceride: greater than or equal to 5OO mg/dL Cholesterol 173 <200 mg/dL [facility] Comment:Desirable Cholestero l: less than 200 mg/dLBorderline High Cholesterol: 200-239 mg/dLHigh Cholesterol: greater than 239 mg/dL LDL Cholesterol Calculated 101(H) <100 mg/dL [facility] Comment:Desirable LDL: less than 100 mg/dLNear Optimal/Above Optimal LDL: 110- 129 mg/dLBorderline High LDL: 130-159 mg/dLHigh LDL: 160-189 mg/dLVery High LDL: greater than or equal to 190 mg/dL HDL Cholesterol 62 >40 mg/dL [facility] Comment:Desirable HDL: great er than 40 mg/dL Note: This HDL assay may give artificially low results in patients with liver disease. Blood Venous blood specimen / Unknown 01/30/2025 11:26 AM EDT 01/30/2025 1:54 PM EDT us Lizeht Pamellahoward [facility] BLOOD ORDERABLES Final Res ult [facility] [address] [place] [phone] * (ABNORMAL) Comprehensive Metabolic Panel (01/30/2025 11:26 AM EDT) Sodium 140 135 - 145 mmol/L [facility] Potassium 3.9 3.3 - 5.1 mmol/L [facility] Chloride 108 96 - 108 mmol/L [facility] Carbon Dioxide 25 22 - 29 mmol/L [facility] Anion Gap 11(L) 12 - 20 [facility] Urea Nitrogen (BUN) 6(L) 9 - 16 mg/dL [facility] Creatinine, Serum 0.58 0.5 - 1.4 mg/dL [facility] Estimated Glomerular Filt Rate >60 [facility] Comment:Chronic Kidney Disea se: Estimated GFR < 60 mL/min/1.86v9Bdwuoz Kidney Disease: Estimated GFR < 15 mL/min/1.73m2 Glucose 97 60 - 115 mg/dL [facility] Calcium 8.8 8.4 - 10.2 mg/dL [facility] Bilirubin, Total 0.7 0.0 - 1.0 mg/dL [facility] Aspartate Amino Transferase 26 5 - 31 U/L [facility] Alanine Aminotransferase 17 0 - 31 U/L [facility] Total Protein 7.4 6.5 - 8.0 g/dL [facility] Albumin Level 4.4 3.5 - 5.0 g/dL [facility] Alkaline Phosphatase 63 39 - 117 U/L [facility] Blood Venous blood specimen / Unknown 01/30/2025 11:26 AM EDT 01/30/2025 1:54 PM EDT Lizeth Pamellahoward [facility] LAB BLOOD ORDERABLES Final Res ult Performing Organization Address [facility]/ZIP Co de Phone Number [facility] [address] [place] [phone] * HPV mRNA E6/E7 w/Reflex to HPV Genotypes 16, 18/45 (11/06/2022 2:55 PM EDT) HPV nRNA E6/E7 Not Detected Not Detected [facility] Comment:Methodology: Transcr iption-Mediated AmplificationThis assay detects E6/E7 viral messenger RNA (mRNA) from 14high-risk HPV types (16,18,31,33,35,39,45,51,52,56,58,59,66,68).Cervical sources are required for HPV testing.If a vaginal source from a patient who has had atotal hysterectomy with removal of cervix wassubmitted, please contact the testing laboratoryfor alternative testing options.For additional information, please refer tohttp://education.SavingStar/faq/WKT876h0(This link if provided for information/educational purposes only.)THIS TEST WAS PERFORMED AT:[facility] [place] [phone] HAYWARD MD HPV mRNA E6/E7 TNP [facility] HPV 16 RNA TNP [facility] HPV 18/45 RNA [facility] 11/06/2022 2:55 PM EDT 11/07/2022 9:18 AM EDT [facility] External Provider LAB CYT OLOGY ORDERABLES Final Result Performing Organization Address City/[facility]/ZIP Co de Phone Number [facility] [address] [place] [address] [phone] * Pap Smear (11/06/2022 2:55 PM EDT) 11/06/2022 2:55 PM EDT 11/07/2022 9:15 AM EDT Narrative [facility] - 11/12/2022 3:14 PM EDT ----- ------- Name: Meredith Mcbride Age/Sex: 32/F : 1990 Unit#: [id number] Attend Dr: Talia Yao CNM Re11/06/22 Status: DEP [facility] Disch: ----- ------- SPEC : [id number] RECD: 11/07/22 STATUS: MIGDALIA BREAUX NUM: [id number] SUMANTH: 11/06/221455 [facility] DR: Talia Yao CNM ENTERED: 11/07/22 SP TYPE: Pap Smr OTHR DR: Lizeth Bernard ORDERED: Pap Smear Interpretation Satisfactory for evaluation. Negative for intraepithelial lesion or malignancy. HPV mRNA E6/E7: NOT DETECTED This assay detects E6/E7 viral messenger RNA (mRNA) from 14 high-risk HPV types (16, 18, 31, 33, 35, 39, 45, 51, 52, 56, 58, 59, 66, 68) HPV testing performed by [facility], [place], [place]. See reference laboratory pion of the EMR for entire report. Clinical Information LMP: 10/30/22 Previous PAP test: 2020, WNL Material Received ThinPrep-Cervical Copies To: Talia Yao [address] [place] [address] Lizeth Bernard [employer] [employer] [facility] [address] [place], [place] [phone] ----- ------- Signed (signature on file) HAJA Meadows (ASC) 11/12/22 1514 ----- ------- END OF REPORT [facility] External Provider LAB [facility] ORDERABLES Final Result [facility] [address] [place], [place] [phone] from Last 3 Months or Most Recently Relevant to Health Maintenance Insurance [employer] C3 Care Teams Grid Inspector Relationship Specialty Start Date End Date Lizeth Bernard FNP [address] [place] [address] PCP - General Family Medicine 02/24/22 Phong Matson MD [address] [place] [address] [place] [address] Endocrinology 05/15/24 Kristina Mccoy Harness Puller 09/23/24
== END 2025-04-18 10:41 | disposition home or self-care (01) ==
LOC: HO.HOS 09:58
PROVIDERS: PCP Physician Assistant
DX: M65.4 Radial styloid tenosynovitis [de Quervain] (principal)
CPT/HCPCS: 99203

== ENCOUNTER → 2025-04-18 09:59 | Outpatient (BNV) | payer MEDICAID, SELFPAY | PROVIDERS: Visit Provider Radiology Diagnostic Radiology | DX: M79.641 Pain in right hand (principal) | CPT/HCPCS: 73130 ==

== ENCOUNTER 2025-04-18 11:08 | Outpatient (REF) | payer MEDICAID, SELFPAY ==
--- NOTE | ~2025-04-18 | XR_ITS ---
EXAMINATION: XR HAND, RIGHT CLINICAL INFORMATION: M79.641 - Pain in right hand COMPARISON: None available. TECHNIQUE: PA, lateral, and oblique views of the right hand. FINDINGS: The bones and soft tissues are normal. No fracture. Alignment is anatomic. Joint spaces are maintained. No erosions or soft tissue calcifications. XR/XR hand RT min 3V IMPRESSION: Normal right hand. Electronically signed by: Terrance Hamilton MD 04/18/2025 10:10 AM EDT
--- OUTSIDE RECORDS SUMMARY | 2025-04-20 14:02 | XMS_ITS | Data Portability ---
Author Organization [place] [facility], Allergy Address [address] [place] [phone] Assessment Encounter Date Assessment Date Assessment LastModified [...] Address Organization Details Recorded Time Acute sialoadenitis [id number] Active 2023 ALBERTINA VELEZ MD [address], [phone] [place] [facility] 11:55:00 Problem Notes None recorded. Medical [...] Updated DateTime 02/18/2024 152.4 cm 29.7 kg/m2 22813.04 g Talia Cohen [place] - [facility] 02/18/2024 11:33:01 Social History None recorded. Functional Status None recorded. Mental Status None recorded. Family History Nothing Reported. Medical History No medical history recorded. Gynecological HistoryNo gynecological history recorded. Obstetrics History GPAL:G 0 P 0 0 0 0 Past Encounters Encounter ID Performer Location Encounter Start Date Encounter Closed Date Diagnosis/Indication Diagnosis SNOMED-CT Code Diagnosis ICD10 Code Diagnosis IMO Codes Diagnosis Note [id number] ALBERTINA VELEZ MD [facility] [address] [phone] 02/18/2024 10:40:20 02/18/2024 11:57:51 Acute sialoadenitis 765649640 K11.21 Health Concerns Section Related Observation LastModified by Organization Detai ls LastModified Time None Recorded Concern Status LastModified by Organization Details LastModified Time None Recorded Advance Directives Directive None Recorded Payers Insurance Date Sequence Insurance Name Policy Number Policy Hutchins Covered Member ID Hutchins Member ID Guarantor Name 02/18/2024 1 [place] [facility] Meredith Hammer [id number] Meredith Hammer Notes Date Note Type Note Provider Name and Address Organization Details Recorded Time 02/18/2024 text/html ROS as noted in the HPI kinyarwanda - ipadswelling of bilateral parotidonset around uration a few hours at a timemade worse with eatingfrequency about every other day initially through October, but none recentlyassociated with a sour tasteteeth are in good conditionhad radioactive iodine for thyroid, completed 2020, and 2022 ALBERTINA VELEZ MD [address] [place] [address], [phone], [place] - [facility] 02/18/2024 11:58:39 OBGyn Episode No OBEpisode recorded.
== END 2025-04-18 11:09 | disposition home or self-care (01) ==
LOC: HO.HOSX 11:08
DX: M65.4 Radial styloid tenosynovitis [de Quervain] (principal)
CPT/HCPCS: 73130; 99212

== ENCOUNTER 2025-05-22 13:49 | Outpatient (REF) | payer MEDICAID, SELFPAY ==
[2025-05-22 15:43] LABS: Free T4 (Free Thyroxine) 1.20 ng/dL (0.71-1.85); Thyroid Stimulating Hormone 0.73 uIU/mL (0.32-4.0)
--- OUTSIDE RECORDS SUMMARY | 2025-05-22 18:50 | XMS_ITS | Encounter Summary ---
Author Organization [employer] Address [address] [facility] [address] [place] [address] Care Team Providers Care Student Life Vice President Name Role Phone Lizeth Bernard Primary Care Provider [phone] Phong Matson MD Unavailable [phone] Reason for Visit * Reason Onset Date Comments Care Management 05/17/2025 C3CM follow up c all Encounter Details Date Type Department Care Team ([facility] Contact Info) Description 05/17/2025 Telephone [facility] MEDICINE [address] [place] [address] Lizeth Bernard FNP [address] [place], [place] [phone] Care Management (C3CM follow up call) Social [...] Miscellaneous Notes * Telephone Encounter - Kristina Snider - 05/17/2025 11:15 AM EST CM Kristina Snider RN and CHW Waleska Seals placed outbound call to patient. Patient's name, and address confirmed. Patient states is doing well with no recent illnesses or emergency room visits. Patient and are doing well. Infant is scheduled for 9 month appointment 06/08/25 9a, patient has no concerns for the pulmonologist. Operations Lead discussed with patient [facility] ortho surgery and patient has decided that at this time she is not going to have the surgery, so she does not need another appointment scheduled with ortho surgery at this time. No further questions or concerns. CM reinforced direct contact information or CHW for any additional questions or concerns. Education provided on Walk-In Urgent Care located in [facility]. Patient provided with after-hours line for [facility], , which offer night time triage service and option to transfer to correction lieutenant provider if needed. Patient verbalizes understanding, and able to repeat back to display card writer. A follow up call will be placed within 1 month, patientagrees with plan. documented in this encounter Plan of Treatment Not on file documented as of this encounter Visit Diagnoses Not on filedocumented in this encounter Additional Health Concerns Assessment Noted Time PHQ-9 Depression Total Score: 0 01/31/20 11:15 AM EDT documented as of this encounter Care Teams Student Life Vice President Relationship Specialty Start Date End Date Lizeth Bernard FNP [address] [place] [address] PCP - General Family Medicine 02/24/22 Phong Matson MD [address] [place] [address] Endocrinology 05/15/24 Kristina Mccoy Operations Lead 09/23/24 documented as of this encounter
--- OUTSIDE RECORDS SUMMARY | 2025-05-22 18:50 | XMS_ITS | Encounter Summary ---
Author Organization [employer] Address [address] [place] [address] 7t [place] [address] Care Team Providers Care Paint Roller Winder Name Role Phone Lizeth Bernard Primary Care Provider [phone] Phong Matson MD Unavailable [phone] Encounter Details Date Type Department Care Team ([facility] st Contact Info) Description 03/30/2023 Abstract [facility] MEDICINE [address] [place] [address] Lizeth Bernard FNP [address] [place] [address] Social History Tobacco Use Types Packs/Day Years [...] documented as of this encounter Care Teams Paint Roller Winder Relationship Specialty Start Date End Date Lizeth Bernard FNP [address] [place] [address] PCP - General Family Medicine 02/24/22 Phong Matson MD [address] [place] [address] Endocrinology 05/15/24 Kristina Mccoy Bulbs Farmworker 09/23/24 documented as of this encounter
--- OUTSIDE RECORDS SUMMARY | 2025-05-22 18:50 | XMS_ITS | Data Portability ---
Author Organization [place] [facility], Allergy Address [address] [place] [phone] Assessment Encounter Date Assessment Date Assessment LastModified [...] Address Organization Details Recorded Time Acute sialoadenitis 658901501 Active 2023 ALBERTINA VELEZ MD [address], [phone] [place] [facility] 11:55:00 Problem Notes None recorded. Medical [...] Updated DateTime 02/18/2024 152.4 cm 29.7 kg/m2 89166.04 g Talia Cohen [place] - [facility] 02/18/2024 11:33:01 Social History None recorded. Functional Status None recorded. Mental Status None recorded. Family History Nothing Reported. Medical History No medical history recorded. Gynecological HistoryNo gynecological history recorded. Obstetrics History GPAL:G 0 P 0 0 0 0 Past Encounters Encounter ID Performer Location Encounter Start Date Encounter Closed Date Diagnosis/Indication Diagnosis SNOMED-CT Code Diagnosis ICD10 Code Diagnosis IMO Codes Diagnosis Note [id number] ALBERTINA VELEZ MD [facility] [address] [phone] 02/18/2024 10:40:20 02/18/2024 11:57:51 Acute sialoadenitis 019985054 K11.21 Health Concerns Section Related Observation LastModified by Organization Detai ls LastModified Time None Recorded Concern Status LastModified by Organization Details LastModified Time None Recorded Advance Directives Directive None Recorded Payers Insurance Date Sequence Insurance Name Policy Number Policy Hutchins Covered Member ID Hutchins Member ID Guarantor Name 02/18/2024 1 [place]: [facility] Meredith Hammer [id number] Meredith Hammer Notes Date Note Type Note Provider Name and Address Organization Details Recorded Time 02/18/2024 text/html ROS as noted in the HPI mohawk - ipadswelling of bilateral parotidonset around uration a few hours at a timemade worse with eatingfrequency about every other day initially through October, but none recentlyassociated with a sour tasteteeth are in good conditionhad radioactive iodine for thyroid, completed 2020, and 2022 ALBERTINA VELEZ MD [address] [place] [address], [phone], [place] [facility] 02/18/2024 11:58:39 OBGyn Episode No OBEpisode recorded.
--- OUTSIDE RECORDS SUMMARY | 2025-05-22 18:50 | XMS_ITS | Clinical Summary ---
Author Organization [employer] Address [address] [place] [address] 7t [place] [address] Care Team Providers Care Barkeeper Name Role Phone Lizeth Bernard VICTORINO Primary Care Provider [phone] Phong Matson MD Unavailable [phone] Allergies Active Allergy Reactions Criticality Noted Date Comments Lactose 12/04/2022 Other 05/08/2025 Other Reaction(s): oak, florence, birch, elm, kwasi, hickory, sickamore, poplar, maple, cattle, guinea pig, dust mites, spores, rabbits, sickamore, dog, cat, cockroach, feather, ashplegeillus, cladosporiodes Other Reaction(s): pork, milk, salmon, shrimp, cho, tuna, cod fish Medications Vit-Fe Fumarate-FA (M-Choco Plus) 27-1 MG tablet TOME GISEL TABLETA TODOS LOS D 3 Active Diclofenac Sodium 1 % gel Apply thin layer by topical route (quantity as directed on package insert) to affected area of pain 3 times daily as needed. 50 g 3 5 Active levothyroxine (Synthroid, Levoxyl) 112 MCG tablet TOME 1 TABLETA POR V A ORAL TODOS LOS D 5 Active fluticasone (Flonase) 50 MCG/ACT nasal sprayIndication s:Nasal congestion ROCIAR 2 VECES EN CADA FOSA NASAL EN LA MANANA. SHAKE GENTLY/PRIME BEFORE 1ST USE&CLEAN TIP/REPLACE CAP 48 mL 1 5 Active acetaminophen (Tylenol 8 Hour) 650 MG ER tablet Take 1 tablet by mouth every 8 (eight) hours. 2 05/08/20 Discontinu ed(Therapy completed) ibuprofen 600 MG tablet TOME GISEL TABLETA CADA OCHO HORAS CUANDO SEA NECESARIO 2 05/08/20 Discontinu ed(Therapy completed) cholecalciferol 50 MCG (1999 UT) capsuleIndicati ons:Vitamin D deficiency TOME GISEL CAPSULA TODOS LOS CAMEJO 90 capsule 3 4 05/08/20 Discontinu ed(Therapy completed) fluticasone (Flonase) 50 MCG/ACT nasal sprayIndication s:Nasal congestion ROCIAR 2 VECES EN CADA FOSA NASAL EN LA MANANA SHAKE GENTLY/PRIME BEFORE 1ST USE&CLEAN TIP/REPLACE CAP 48 mL 11 4 05/08/20 Discontinu ed(Therapy completed) levothyroxine (Synthroid, Levoxyl) 125 MCG tablet Take 125 mcg by mouth Once per day. 05/08/20 Discontinu ed(Therapy completed) Active Problems Problem Noted [...] Jan 2024 - Dr. Fierro at [facility]. Suspected possibly d/t viral injury exacerbated by [...] (01/30/2025): Pap: NILM HPV neg 11/06/22 by [facility] PATENT SOLICITOR Talia Yao. Following with [facility] as of 2024. Last PE: 01/30/25 Acne vulgaris 11/19/2022 Assessment & Plan (02/18/2023 6:43 PM EDT): Inflammatory papules and pustules on face, back and chest clear Tretinoin 0.025% cream sent to [facility] Doxycycline on hold given upcoming [...] Biopsied by IR 03/07/2019 with benign cytology (Hurt Category II). Subsequent R hemithyroidectomy d/t compressive [...] Biopsied by IR 03/07/2019 with benign cytology (Hurt Category II). Subsequent R hemithyroidectomy d/t compressive [...] Biopsied by IR 03/07/2019 with benign cytology (Hurt Category II). Subsequent R hemithyroidectomy d/t compressive [...] goal: normal range <2.5 during Following with [facility] Endo Lab Results Component Value Date TSH 0.58 10/25/2024 Sickle cell trait 08/14/2016 Dyschromia 12/02/2011 Resolved Problems Problem Noted Date Diagnosed Date Resolved Date History of total thyroidectomy 12/12/2020 01/30/2025 Encounters Date Type Department Care Team Description 05/22/2025 Orders Only GENERIC EXTERNAL DATA DEPARTMENT Provider, Generic External Data 05/17/2025 Telephone [facility] [address] [place] [address] Lizeth Bernard FNP Care Management (C3CM follow up call) 05/14/2025 Refill [facility] MEDICINE [address] [place] [address] Lizeth Bernard FNP Nasal congestion 04/24/2025 Telephone [facility] [address] [place] [address] Lizeth Bernard FNP Care Management (C3CM follow up call) 04/19/2025 9:00 AM EDT Office Visit [facility] OPTOMETRY [address] [place] [address] RachidYamini lima, OD Visit for eye and vision exam (Primary Dx); Myopia of both eyes 04/19/2025 Travel 04/12/2025 Travel 03/29/2025 Telephone [facility] MEDICINE [address] [place] [address] Lizeth Bernard FNP Care Management (C3CM follow up call) 03/03/2025 Results Follow-Up [facility] [address] [place], [place] [phone] Lizeth Bernard FNP T-SPOT .TB 02/20/2025 Telephone [facility] [address] [place], [place] [phone] Lizeth Bernard FNP Lab Orders from Last 3 Months Immunizations Immunization Administration Dates Next Due DTaP 02/12/2006, 7,12/23/1993,03/18,01/15/1993,1992 HPV, Quadrivalent 09/17/2009,06/05/2009,03/22/20 09 Hep B, Adolescent or Pediatric 02/15/1994,1993,08/20/1993 Hib ([facility]) 12/23/1993, 3,01/15/1993,11/14 IPV 10/24/1996, 4,01/15/1993,11/14 Influenza Injectable [...] 01/30/2025 10:28 AM EDT Plan of Treatment Health Maintenance Due Date Last Done Comments Alcohol/Substance Use Screening 2004 Family Planning (PISQ) 09/14/2007 Hepatitis C Screening 2010 COVID-19 Vaccine ( season) 2025 07/03/2022, 12/19/2020 Influenza Vaccine (#1) 2025 , 04/18/2019, 04/14/2016, Additional history exists SDOH Screening 10/21/2025 10/21/2024 Depression Screening 01/30/2026 01/30/2025, 01/31/20 Disability Screening 01/30/2026 01/30/2025 Tobacco Screening 05/08/2026 05/08/2025 Cervical Cancer Screening 11/07/2027 HPV/Cotest 11/07/2027 11/06/2022 [...] Vaccine Completed 03/22/2009 HPV Vaccines Completed 09/17/2009, 12/0 01/2009, 03/22/2009 RSV Patients and Patients Aged [...] Priority Date/Time Associated Diagnosis Comments TSH Routine 05/22/2025 2:08 PM EST T4, FREE Routine 05/22/2025 2:08 PM EST T-SPOT(R).TB Routine 02/21/2025 1:14 PM EDT Screening due HIV 1/2 ANTIGEN/ANTIBODY, FOURTH GENERATION W/RFL Routine 01/30/2025 11:26 AM EDT Encounter for routine history and physical examination of adult HPV MRNA E6/E7 REFLEX TO HPV 16, 18/45 Routine 11/06/2022 2:55 PM EDT PAP SMEAR Routine 11/06/2022 2:55 PM EDT from Last 3 Months or Most Recently Relevant to Health Maintenance Results * TSH (05/22/2025 2:08 PM EST) Thyroid Stimulating Hormone 0.73 0.32 - 4.0 uIU/mL [facility] Comment:TSH 3rd Generation ( [facility]) 05/22/2025 2:08 PM EST 05/22/2025 2:08 PM EST us Generic External Data Provider LAB BLOOD ORDERAB LES Final Result Performing Organization Address City/[facility]/ZIP Co de Phone Number [facility] [address] [place] [address] [phone] * T4, Free (05/22/2025 2:08 PM EST) Free T4 (Free Thyroxine) 1.20 0.71 - 1.85 ng/dL [facility] 05/22/2025 2:08 PM EST 05/22/2025 2:08 PM EST us Generic External Data Provider LAB BLOOD ORDERAB LES Final Result Performing Organization Address [facility] [place] [facility] Co de Phone Number [facility] [address] [place] [address] [phone] * T-SPOT??.TB (02/21/2025 1:14 PM EDT) [facility] T Spot TB Negative Negative [facility] Comment:A negative test resu lt does [...] as aquantitative test. TS PANEL A 0 [facility] TS PANEL B 0 [facility] Negative Control Passed [facility] Positive Control Passed [facility] Comment:For additional infor veronique, please refer tohttp://education.Biscotti/faq/ILN404(This link is being provided for informational/educational purposes only.)THIS TEST WAS PERFORMED AT:[employer]/[id number] [place] [address]OYJJOXLYENIFER VALLADARES MD,PHD 02/21/2025 1:14 PM EDT 02/21/2025 1:58 PM EDT Lizeth Bernard [facility] LAB BLOOD ORDERABLES Final Res ult [facility] [address] [place] [address] [phone] * HIV-1/2 Antigen and Antibodies, Fourth Generation, with Reflexes (01/30/2025 11:26 AM EDT) HIV AB/AG Nonreactive Nonreactive [facility] Comment:HIV-1 p24 Ag and/or HIV-1/HIV-2 Ab not detected.A test result that is nonreactive does not exclude thepossibility of exposure to or infection with HIV-1 and/orHIV-2. Nonreactive results in this assay for individualswith prior exposure to HIV-1 and/or HIV-2 may be due toantigen and antibody levels that are below the limit ofdetection of this assay.The [employer] HIV Ag/Ab Combo assay result andsupplemental assay results should be interpreted inconjunction with the patient's clinical presentation,history and other laboratory results. If the results areinconsistent with clinical evidence, additional testing issuggested to confirm the result. Blood Venous blood specimen / Unknown 01/30/2025 11:26 AM EDT 01/30/2025 1:54 PM EDT Lizeth Bernard [facility] LAB BLOOD ORDERABLES Final Res ult Performing Organization Address City/[facility]/ZIP Co de Phone Number [facility] [address] [place] [address] [phone] * HPV mRNA E6/E7 w/Reflex to HPV Genotypes 16, 18/45 (11/06/2022 2:55 PM EDT) HPV nRNA E6/E7 Not Detected Not Detected [facility] Comment:Methodology: Transcr iption-Mediated AmplificationThis assay detects E6/E7 viral messenger RNA (mRNA) from 14high-risk HPV types (16,18,31,33,35,39,45,51,52,56,58,59,66,68).Cervical sources are required for HPV testing.If a vaginal source from a patient who has had atotal hysterectomy with removal of cervix wassubmitted, please contact the testing laboratoryfor alternative testing options.For additional information, please refer tohttp://education.Biscotti/faq/XQV129j4(This link if provided for information/educational purposes only.)THIS TEST WAS PERFORMED AT:[employer] [place] [address]SGRYWANTOINETTE HAYWARD MD HPV mRNA E6/E7 [facility] HPV 16 RNA [facility] HPV 18/45 RNA [facility] 11/06/2022 2:55 PM EDT 11/07/2022 9:18 AM EDT [facility] External Provider LAB CYT OLOGY ORDERABLES Final Result [facility] [address] [place] [phone] * Pap Smear (11/06/2022 2:55 PM EDT) 11/06/2022 2:55 PM EDT 11/07/2022 9:15 AM EDT Narrative [facility] - 11/12/2022 3:14 PM EDT ----- ------- Name: Meredith Mcbride Age/Sex: 32/F : 1990 Unit#: [id number] Attend Dr: Talia Yao CNM Re11/06/22 Status: [facility] REF Location: [facility] Disch: ----- ------- SPEC : [id number] RECD: 11/07/22 STATUS: MIGDALIA BREAUX NUM: [id number] SUMANTH: 11/06/22-1455 [facility] DR: Talia Yoa CNM ENTERED: 11/07/22 SP TYPE: Pap Smr OTHR DR: Lizeth Bernard ORDERED: Pap Smear Interpretation Satisfactory for evaluation. Negative for intraepithelial lesion or malignancy. HPV mRNA E6/E7: NOT DETECTED This assay detects E6/E7 viral messenger RNA (mRNA) from 14 high-risk HPV types (16, 18, 31, 33, 35, 39, 45, 51, 52, 56, 58, 59, 66, 68) HPV testing performed by [employer], [place], [place]. See reference laboratory pion of the EMR for entire report. Clinical Information LMP: 10/30/22 Previous PAP test: 2020, WNL Material Received ThinPrep-Cervical Copies To: Talia Yao CNM [address] [place] [address] Dr. [address] [place], [place] [phone] Lizeth Bernard [address] [place] [address] ----- ------- Signed (signature on file) [facility] 11/12/22 1514 ----- ------- END OF REPORT [facility] External Provider LAB CYT [facility] ORDERABLES Final Result [facility] [address] [place] [phone] from Last 3 Months or Most Recently Relevant to Health Maintenance Insurance [facility] C3 Care Teams Barkeeper Relationship Specialty Start Date End Date Lizeth Bernard FNP [address] [place] [address] PCP - General Family Medicine 02/24/22 Phong Matson MD [address] [place] [phone] Endocrinology 05/15/24 Kristina Mccoy Job Forwarder 09/23/24
--- OUTSIDE RECORDS SUMMARY | 2025-05-22 18:50 | XMS_ITS | Encounter Summary ---
Author Organization [employer] Address [address] [facility] 7t [place] [address] Care Team Providers Care Cuffer Name Role Phone Lizeth Bernard Primary Care Provider [phone] Phong Matson MD Unavailable [phone] Reason for Visit * Reason Onset Date Comments Nurse Triage 10/07/2023 Encounter Details Date Type Department Care Team ([facility] st Contact Info) Description 10/07/2023 Telephone [facility] MEDICINE [address] [place] [address] Lizeth Bernard FNP [address] [place], [place] [phone] Nurse Triage Social History Tobacco Use Types [...] 10/07/2023 1:02 PM EDT Triage call with [employer] Animal [employer] Technician [place] [id number] Pt reports salivary gland pain on left side. Pt has had this a month ago affecting the right side. Pt reports neg for fever, pain is on left side with some swelling noted left lower cheek/jaw and under left ear area. Pt reports a bitter taste with eating as well. [facility]pt [facility] [address] [place]. [...] salivary glands The caller accepted this outcome Niuean speaker documented in this encounter Plan of Treatment Not on file documented as of this encounter Visit Diagnoses Not on filedocumented in this encounter Additional Health Concerns Assessment Noted Time PHQ-9 Depression Total Score: 1 11/19/19 23 3:22 PM EDT documented as of this encounter Care Teams Cuffer Relationship Specialty Start Date End Date Lizeth Bernard FNP [address] [place] [address] PCP - General Family Medicine 02/24/22 Phong Matson MD [address] [place] [address] Endocrinology 05/15/24 Kristina Mccoy Louver Door Assembler 09/23/24 documented as of this encounter
--- OUTSIDE RECORDS SUMMARY | 2025-05-22 18:50 | XMS_ITS | Encounter Summary ---
Author Organization [employer] Address [address] [place] [address] 7t [place] [address] Care Team Providers Care Agricultural Sciences Professor Name Role Phone Lizeth Bernard Primary Care Provider [phone] Phong Matson MD Unavailable [phone] Reason for Visit * Reason Onset Date Comments Appointment Request 07/03/2022 Encounter Details Date Type Department Care Team ([facility] st Contact Info) Description 07/03/2022 Telephone [facility] MEDICINE [address] [place] [address] Lizeth Bernard FNP [address] [place], [place] [phone] Appointment Request Social History Tobacco Use Types [...] to get one done. Please contact pt [phone] Ugandan Speaker * Telephone Encounter - Hardik Bravo - 07/03/2022 9:18 AM EST Tc from pt requesting an Physical APPT due to work requiring her to get one Please contact pt at [phone] documented in this encounter Plan of Treatment Not on file documented as of this encounter Visit Diagnoses Not on filedocumented in this encounter Care Teams Agricultural Sciences Professor Relationship Specialty Start Date End Date Lizeth Bernard FNP [address] [place] [address] PCP - General Family Medicine 02/24/22 Phong Matson MD [address] [place] [address] Endocrinology 05/15/24 Kritsina Mccoy Wool Grader 09/23/24 documented as of this encounter
--- OUTSIDE RECORDS SUMMARY | 2025-05-22 18:50 | XMS_ITS | Encounter Summary ---
Author Organization [employer] Address [address] [facility] [address]t [place] [address] Care Team Providers Care Lang Interpreter Name Role Phone Lizeth Bernard VICTORINO Primary Care Provider [phone] Phong Matson MD Unavailable [phone] Encounter Details Date Type Department Care Team (Late st Contact Info) Description 05/22/2025 Orders Only GENERIC EXTERNAL DATA [...] the past 12 months, has t he [employer], gas, oil or water CallGrader threatened to shut off services in your [...] T4, FREE Routine 05/22/2025 2:08 PM EST documented in this encounter Results * TSH (05/22/2025 2:08 PM EST) Thyroid Stimulating Hormone 0.73 0.32 - 4.0 uIU/mL [facility] Comment:TSH 3rd Generation ( [facility]) 05/22/2025 2:08 PM EST 05/22/2025 2:08 PM EST us Generic External Data Provider LAB BLOOD ORDERAB LES Final Result Performing Organization Address [facility] Co de Phone Number [facility] [address] [place] [phone] * T4, Free (05/22/2025 2:08 PM EST) Free T4 (Free Thyroxine) 1.20 0.71 - 1.85 ng/dL [facility] 05/22/2025 2:08 PM EST 05/22/2025 2:08 PM EST us Generic External Data Provider LAB BLOOD ORDERAB LES Final Result Performing Organization Address City/[facility] Co de Phone Number [facility] [address] [place] [address] [phone] documented in this encounter Visit Diagnoses Not on filedocumented in this encounter Additional Health Concerns Assessment Noted Time PHQ-9 Depression Total Score: 0 01/31/20 25 11:15 AM EDT documented as of this encounter Care Teams Lang Interpreter Relationship Specialty Start Date End Date Lizeth Bernard FNP [address] [place] [address] PCP - General Family Medicine 02/24/22 Phong Matson MD [address] [place] [address] [address] [place] [address] Endocrinology 05/15/24 Kristina Mccoy Cushion Worker 09/23/24 documented as of this encounter
== END 2025-05-22 13:50 | disposition home or self-care (01) ==
LOC: HO.LAB 13:49
PROVIDERS: PCP Registered Nurse; Visit Provider Student in an Organized Health Care Education/Training Program
DX: E89.0 Postprocedural hypothyroidism (principal); Z85.850 Personal history of malignant neoplasm of thyroid
CPT/HCPCS: 36415; 84439; 84443